=== PATIENT | male | born 1975 | race African-American/Black ===

== ENCOUNTER 2021-02-11 06:21 | Outpatient (REF) | payer OTHER, SELFPAY ==
[2021-02-11 12:05] LABS: Alanine Aminotransferase 20 U/L (0-40); Albumin Level 4.2 g/dL (3.5-5.0); Alkaline Phosphatase 68 U/L (39-117); Anion Gap 12 (12-20); Aspartate Amino Transferase 19 U/L (5-37); Bilirubin Total 0.7 mg/dL (0.0-1.0); Blood Urea Nitrogen 21 mg/dL (9-16); Calcium 9.1 mg/dL (8.4-10.2); Carbon Dioxide 27 mmol/L (22-29); Chloride 105 mmol/L (96-108); Cholesterol 220 mg/dL; Estimated Glomerular Filt Rate > 60; Glucose Fasting 92 mg/dL (60-99); HDL Cholesterol 51 mg/dL; LDL Cholesterol Calculated 151 mg/dl; Potassium 4.1 mmol/L (3.3-5.1); Sodium 140 mmol/L (135-145); Total Protein 7.3 g/dL (6.5-8.0); Triglycerides 91 mg/dL
[2021-02-11 12:10] LABS: TSH reflex Free T4 1.49 uIU/mL (0.32-4.0)
[2021-02-12 07:27] LABS: Follicle Stimulating Hormone 1.8 mIU/mL (1.6-8.0); Lutenizing Hormone 2.5 mIU/mL (1.5-9.3)
[2021-02-16 16:22] LABS: Testosterone, Free 53.4 pg/mL (35.0-155.0); Testosterone, Total 284 ng/dL (250-1100)
== END 2021-02-11 06:22 | disposition home or self-care (01) ==
LOC: HO.HMGCLDS 06:21
PROVIDERS: PCP Nurse Practitioner Family; Visit Provider Nurse Practitioner Family
DX: N52.9 Male erectile dysfunction, unspecified (principal); Z00.00 Encounter for general adult medical examination without abnormal findings
CPT/HCPCS: 36415; 80053; 80061; 83001; 83002; 84402; 84403; 84443

== ENCOUNTER 2021-09-22 09:23 | Outpatient (REF) | payer OTHER, SELFPAY ==
[2021-09-22 11:28] LABS: MANUAL DIFF FLAG NO
[2021-09-22 11:41] LABS: Basophils Percent Auto 0.6 % (0-2); Eosinophils Absolute Auto 0.2 X10*3/uL (0.0-0.4); Eosinophils Percent Auto 3.6 % (0-4); Hematocrit 43.7 % (42.0-52.0); Hemoglobin 14.8 g/dl (14.0-18.0); Imm Gran Abs Auto 0.01 X10*3/uL (0.00-0.03); Imm Gran Pct Auto 0.2 % (0.0-0.4); Lymphocytes Absolute Auto 1.8 X10*3/uL (1.2-4.9); Lymphocytes Percent Auto 37.3 % (20-40); Mean Corpuscular HGB Conc 33.9 g/dl (31.0-36.0); Mean Corpuscular Hemoglobin 29.7 pg (27.0-33.0); Mean Corpuscular Volume 87.6 fL (80.0-98.0); Mean Platelet Volume 9.8 fL (9.4-12.4); Monocytes Absolute Auto 0.6 X10*3/uL (0.1-1.2); Neutrophils Absolute Auto 2.2 x10*3/uL (2.0-8.3); Neutrophils Percent Auto 46.3 % (45-73); Platelet Count 270 X10*3/uL (160-400); Red Blood Count 4.99 X10*6/uL (4.60-5.80); Red Cell Distribution Width 12.7 % (11.0-16.0); White Blood Count 4.8 X10*3/uL (4.8-10.8)
[2021-09-22 12:12] LABS: Cholesterol 201 mg/dL; HDL Cholesterol 47 mg/dL; LDL Cholesterol Calculated 126 mg/dl; Triglycerides 143 mg/dL
[2021-09-22 12:13] LABS: Alanine Aminotransferase 20 U/L (0-40); Albumin Level 4.1 g/dL (3.5-5.0); Alkaline Phosphatase 77 U/L (39-117); Anion Gap 12 (12-20); Aspartate Amino Transferase 19 U/L (5-37); Bilirubin Direct 0.2 mg/dL (0.0-0.5); Bilirubin Total 0.5 mg/dL (0.0-1.0); Blood Urea Nitrogen 21 mg/dL (9-16); Calcium 9.3 mg/dL (8.4-10.2); Carbon Dioxide 24 mmol/L (22-29); Chloride 107 mmol/L (96-108); Estimated Glomerular Filt Rate > 60; Glucose Random 105 mg/dL (60-115); Potassium 4.2 mmol/L (3.3-5.1); Sodium 139 mmol/L (135-145); Total Protein 7.4 g/dL (6.5-8.0)
[2021-09-24 13:30] LABS: LDL Cholesterol Direct 120 mg/dL (<100)
[2021-09-24 19:17] LABS: TS Negative Control Passed; TS Panel A 0; TS Panel B 0; TS Positive Control Passed; TSpotTB Negative (Negative)
== END 2021-09-22 09:24 | disposition home or self-care (01) ==
LOC: HO.HMGCLDS 09:23
PROVIDERS: PCP Nurse Practitioner Family; Visit Provider Physician Assistant Medical
DX: L40.0 Psoriasis vulgaris (principal); E78.5 Hyperlipidemia, unspecified
CPT/HCPCS: 36415; 80048; 80061; 80076; 83721; 85025; 86481

== ENCOUNTER 2022-02-14 11:47 | Outpatient (REF) | payer OTHER, SELFPAY ==
[2022-02-14 13:57] LABS: Appearance Urine CLEAR; Color Urine YELLOW; Glucose Urine UA NEG (NEG); Leukocyte Esterase Urine NEG (NEG); Nitrite Urine NEG (NEG); Urine Blood NEG (NEG); Urine Ketones NEG (NEG); Urine Protein NEG (NEG-TRACE)
[2022-02-14 14:29] LABS: Alanine Aminotransferase 18 U/L (0-40); Albumin Level 4.2 g/dL (3.5-5.0); Alkaline Phosphatase 93 U/L (39-117); Anion Gap 10 (12-20); Aspartate Amino Transferase 16 U/L (5-37); Bilirubin Total 0.4 mg/dL (0.0-1.0); Blood Urea Nitrogen 14 mg/dL (9-16); Calcium 10.1 mg/dL (8.4-10.2); Carbon Dioxide 28 mmol/L (22-29); Chloride 106 mmol/L (96-108); Cholesterol 143 mg/dL; Estimated Glomerular Filt Rate > 60; Glucose Fasting 95 mg/dL (60-99); HDL Cholesterol 52 mg/dL; LDL Cholesterol Calculated 80 mg/dl; Potassium 4.3 mmol/L (3.3-5.1); Sodium 140 mmol/L (135-145); Total Protein 7.6 g/dL (6.5-8.0); Triglycerides 57 mg/dL
[2022-02-14 14:51] LABS: Prostate Specific Antigen Scr 3.04 ng/mL (<0.05-4.0); TSH reflex Free T4 0.51 uIU/mL (0.32-4.0)
== END 2022-02-14 11:48 | disposition home or self-care (01) ==
LOC: HO.HMGCLDS 11:47
PROVIDERS: PCP Nurse Practitioner Family; Visit Provider Nurse Practitioner Family
DX: Z00.00 Encounter for general adult medical examination without abnormal findings (principal); Z12.5 Encounter for screening for malignant neoplasm of prostate
CPT/HCPCS: 36415; 80053; 80061; 81003; 84153; 84443

== ENCOUNTER → 2022-04-08 07:41 | Outpatient (BNVA) | payer OTHER, SELFPAY | PROVIDERS: PCP Nurse Practitioner Family; Referring Provider Nurse Practitioner Family; Visit Provider Nurse Practitioner Family | DX: Z12.11 Encounter for screening for malignant neoplasm of colon (principal) | CPT/HCPCS: 99202 ==

== ENCOUNTER 2022-07-15 09:37 | Outpatient (REF) | payer OTHER, SELFPAY ==
[2022-07-15 11:32] LABS: MANUAL DIFF FLAG NO
[2022-07-15 11:47] LABS: Basophils Percent Auto 0.6 % (0-2); Eosinophils Absolute Auto 0.1 X10*3/uL (0.0-0.4); Eosinophils Percent Auto 2.6 % (0-4); Hemoglobin 14.6 g/dl (14.0-18.0); Imm Gran Abs Auto 0.01 X10*3/uL (0.00-0.03); Imm Gran Pct Auto 0.2 % (0.0-0.4); Lymphocytes Absolute Auto 1.8 X10*3/uL (1.2-4.9); Lymphocytes Percent Auto 37.2 % (20-40); Mean Corpuscular HGB Conc 34.8 g/dl (31.0-36.0); Mean Corpuscular Hemoglobin 30.2 pg (27.0-33.0); Mean Corpuscular Volume 86.8 fL (80.0-98.0); Mean Platelet Volume 9.9 fL (9.4-12.4); Monocytes Absolute Auto 0.6 X10*3/uL (0.1-1.2); Monocytes Percent Auto 12.6 % (2-11); Neutrophils Absolute Auto 2.2 x10*3/uL (2.0-8.3); Neutrophils Percent Auto 46.8 % (45-73); Platelet Count 275 X10*3/uL (160-400); Red Blood Count 4.84 X10*6/uL (4.60-5.80); Red Cell Distribution Width 12.5 % (11.0-16.0); White Blood Count 4.7 X10*3/uL (4.8-10.8)
[2022-07-15 12:01] LABS: Appearance Urine Turbid; Color Urine Yellow; Glucose Urine UA Negative (Negative); Leukocyte Esterase Urine Negative (Negative); Nitrite Urine Negative (Negative); PH 5.5 (5.0-9.0); Specific Gravity - Urine 1.025 (1.005-1.025); Urine Blood Negative (Negative); Urine Ketones Trace mg/dL (Negative); Urine Protein Negative (Neg-Trace)
[2022-07-15 12:11] LABS: Alanine Aminotransferase 17 U/L (0-40); Albumin Level 4.1 g/dL (3.5-5.0); Alkaline Phosphatase 79 U/L (39-117); Anion Gap 14 (12-20); Aspartate Amino Transferase 13 U/L (5-37); Bilirubin Total 0.5 mg/dL (0.0-1.0); Blood Urea Nitrogen 15 mg/dL (9-16); Calcium 9.2 mg/dL (8.4-10.2); Carbon Dioxide 25 mmol/L (22-29); Chloride 107 mmol/L (96-108); Cholesterol 130 mg/dL; Estimated Glomerular Filt Rate > 60; Glucose Fasting 94 mg/dL (60-99); HDL Cholesterol 51 mg/dL; LDL Cholesterol Calculated 67 mg/dl; Potassium 4.2 mmol/L (3.3-5.1); Sodium 142 mmol/L (135-145); Total Protein 7.3 g/dL (6.5-8.0); Triglycerides 63 mg/dL
[2022-07-15 12:17] LABS: TSH reflex Free T4 0.43 uIU/mL (0.32-4.0)
== END 2022-07-15 09:38 | disposition home or self-care (01) ==
LOC: HO.HMGCLDS 09:37
PROVIDERS: PCP Nurse Practitioner Family; Visit Provider Nurse Practitioner Family
DX: E78.5 Hyperlipidemia, unspecified (principal)
CPT/HCPCS: 36415; 80053; 80061; 81003; 84443; 85025

== ENCOUNTER 2022-08-19 08:59 | Day surgery (SDC) | payer OTHER, SELFPAY ==
--- NOTE | 2022-08-18 13:30 | HO.ANESPROP2 ---
Documented by User: Jen Narayan NP 08/18/22 13:31 HPI - Anesthesia Eval Consult details Narrative: 47yo M for Colonoscopy PMFSH Active Problems Active Problems: All Active Problems (Updated 02/14/22 @ 15:08 by TIFFANI Gonzalez) Elevated PSA (Acute) Screening PSA (prostate specific antigen) (Acute) Screening for colon cancer (Acute) Dyslipidemia (Acute) Visual floaters (Acute) Physical exam (Acute) Erectile dysfunction (Acute) Past Medical History Medical History Dyslipidemia Hypertension Psoriasis Family History Family History Father HTN (hypertension) Unknown family medical history Mother HTN (hypertension) Sister No problems noted. Surgical History Surgical History History of tooth extraction Hx of foot surgery Social History Social History Housing: Condominium Alcohol intake: never Patient Tobacco Use Status: Never used Tobacco e-Cigarette/Vaping Use: Never Used Second Hand Smoke Exposure: No Use of substances other than those prescribed or required for medical reasons: No Are you DNR?: No Advance Directives: No Advance Directives Information Provided: Yes service: Yes Current occupational exposures/hazards: No Cognitive needs: No Hearing needs: No Vision needs: No Meds Allergies Allergy/AdvReac Type Severity Reaction Status Date / Time No Known Allergies Allergy Verified 06/22/22 17:33 Home Medications Medication Instructions Recorded Confirmed Last Taken Type clobetasol 0.05 % topical ointment g topical 06/22/22 06/22/22 Unknown History desonide 0.05 % topical ointment topical 06/22/22 06/22/22 Unknown History Exam Exam Date and Time: August 18, 2022 1330 Pertinent Lab Results Pertinent Lab Results: Laboratory Tests 07/15/22 07/15/22 09:43 09:43 WBC 4.7 L Hgb 14.6 Hct 42.0 Plt Count 275 Sodium 142 Potassium 4.2 Chloride 107 Carbon Dioxide 25 BUN 15 Creatinine 1.15 Assessment and Plan Assessment Anesthesia Assessment: Chart Reviewed Documented by User: Amparo Garrido MD 08/19/22 11:28 PMFSH Past Medical History Medical History Dyslipidemia Hypertension Psoriasis Family History Family History Father HTN (hypertension) Unknown family medical history Mother HTN (hypertension) Sister No problems noted. Family history of problems with anesthesia: No Surgical History Surgical History History of tooth extraction Hx of foot surgery History of Problems with Anesthesia: No Social History Social History Housing: Condominium Alcohol intake: never Patient Tobacco Use Status: Never used Tobacco e-Cigarette/Vaping Use: Never Used Second Hand Smoke Exposure: No Use of substances other than those prescribed or required for medical reasons: No Are you DNR?: No Advance Directives: No Advance Directives Information Provided: Yes service: Yes Current occupational exposures/hazards: No Cognitive needs: No Hearing needs: No Vision needs: No Meds Allergies Allergy/AdvReac Type Severity Reaction Status Date / Time No Known Allergies Allergy Verified 06/22/22 17:33 Home Medications Medication Instructions Recorded Confirmed Last Taken Type clobetasol 0.05 % topical ointment g topical 06/22/22 06/22/22 Unknown History desonide 0.05 % topical ointment topical 06/22/22 06/22/22 Unknown History Exam Airway Mallampati Class: I TM Dist: >3cm Neck ROM: Full Heart: rrr Lungs: cta Assessment and Plan Assessment Anesthesia Assessment: Anesthesia Plan Discussed and Chart Reviewed Final Anesthetic Review Family History of Problems with Anesthesia: No History of Problems with Anesthesia: No NPO: Yes ASA Class: II Final Preanesthetic Review: No Changes in Pt Med Stat, Meds/Allgs Chart Reviewed and Consent Obtained/Reviewed Patient Risk: Intermediate Procedure Risk: Intermediate Anesthetic Plan Anesthetic Plan: MAC: Disposition: Standard PACU
[2022-08-19 10:25] VITALS: BMI 35.2
[2022-08-19 10:31] VITALS: BP 150/97; PULSE 72; RESP 18; TEMP 36.4; O2SAT 97
[2022-08-19 10:33] VITALS: BMI 35.2
[2022-08-19] MEDS: Lactated Ringers 1,000 ML 100 ML IVCONT (11:28)
--- NOTE | 2022-08-19 11:29 | MHC.SHP ---
Pre-Procedural Eval Section A Date of Service: 08/19/22 The patient is an INPATIENT: No The History & Physical has been completed within 30 days and I have reviewed it.: No Section B Chief Complaint: screening Details of Present Illness: Colon cancer screening (1st colonoscopy) Relevant Family History (Specify if Yes): No Relevant Social History: None Present Medications: see Short Stay Collaborative assessment Medical History: Significant History (Dyslipidemia Hypertension Psoriasis) History of Previous Operations: Relevant previous surgery/procedure and date(s) (History of tooth extraction) Allergies: Allergies Allergy/AdvReac Type Severity Reaction Status Date / Time No Known Allergies Allergy Verified 06/22/22 17:33 Review of Systems Sugical H&P ROS: Negative: Constitution, Cardiovascular, Respiratory and Gastrointestinal Exam Surgical H&P Exam: Normal: Heart, Normal: Lungs, Normal: Extremities and Normal: Abdomen Plan Diagnosis/Plan: Unchanged I have reviewed the history and physical and performed a pertinent physical examination on my patient. No changes have occurred unless specified.
--- NOTE | 2022-08-19 11:29 | PM.OP ---
Brief Operative Note Date of Service: 08/19/22 Pre-op diagnosis: Colon cancer screening (1st colonoscopy) Post-op diagnosis: other (Colon polyp, diverticulosis, hemorrhoids) Procedure: COLONOSCOPY TILL CECUM WITH BIOPSIES Consent: Indications for the procedure and potential complications of bleeding, perforation, reaction to medications and missed diagnosis were discussed with the patient and informed consent was obtained. Instrument: Olympus CF H 190 L variable stiffness adult colonoscope Monitoring: Vital signs and clinical assessment, intermittent blood pressure monitoring, continuous EKG monitoring, Pulse oximetry and Carbon Dioxide monitoring were done throughout the procedure. Colon withdrawl time was 15 minutes. Procedure: The patient was placed in the left lateral decubitis position and pre-procedure medications were administered. After a digital rectal examination of the ano-rectum, the video colonoscope was inserted into the rectum and advanced through the colon to the cecum. The colonoscope was slowly withdrawn in a retrograde panoramic fashion and the colon mucosa was carefully examined including a retroflexed view of the rectum. Findings and interventions are described below. Procedure Difficulty: Colon was long and tortuous and there was spasm and some loop formation, no maneuvers were required Findings: Terminal Ileum: Not evaluated Cecum: A 4-5 mm sessile polyp adjacent to appendicular orifice Ascending Colon: Normal Transverse Colon: Normal Descending Colon: Normal Sigmoid Colon: Moderate diverticulosis Rectum: Normal Ano-rectum: Moderate internal hemorrhoids Colon preparation: Good after some irrigation and Fair in the right colon Impression and Post Procedure Diagnosis: Colonoscopy Findings: one small polyp removed Moderate diverticulosis seen in the sigmoid colon Moderate hemorrhoids on retroflexed exam. Plan: Await pathology results Patient has an appointment on 09/02/22 in the GI Clinic with Nicci Schroeder FNP-BC . Repeat Colonoscopy interval based on path results - in 3 years if polyps are adenomatous and due to fair prep in the right colon (adult colonoscope for future colonoscopies). Above findings were reviewed with the patient and colon polyps and diverticulosis handouts were given in the discharge area Surgeon: Samia Salvador MD Anesthesia: MAC Was an Sanitation Technician used for this Procedure?: No Sanitation Technician: Taylor Rae Estimated blood loss (mL): 0 Pathology: other (A. cecal polyp) Condition: stable Disposition: PACU
--- NOTE | 2022-08-19 11:34 | P.OP_ITS ---
Operative Note Operative Note Date of Service: 08/19/22 Narrative: Pre-op diagnosis: Colon cancer screening (1st colonoscopy) Post-op diagnosis:?other (Colon polyp, diverticulosis, hemorrhoids) Procedure: COLONOSCOPY TILL CECUM WITH BIOPSIES Consent: Indications for the procedure and potential complications of bleeding, perforation, reaction to medications and missed diagnosis were discussed with the patient and informed consent was obtained. Instrument: Olympus CF H 190 L variable stiffness adult colonoscope Monitoring: Vital signs and clinical assessment, intermittent blood pressure monitoring, continuous EKG monitoring, Pulse oximetry and Carbon Dioxide monitoring were done throughout the procedure. Colon withdrawl time was 15 minutes. Procedure: The patient was placed in the left lateral decubitis position and pre-procedure medications were administered. After a digital rectal examination of the ano-rectum, the video colonoscope was inserted into the rectum and advanced through the colon to the cecum. The colonoscope was slowly withdrawn in a retrograde panoramic fashion and the colon mucosa was carefully examined including a retroflexed view of the rectum. Findings and interventions are described below. Procedure Difficulty:? Colon was long and tortuous and there was spasm and some loop formation, no maneuvers were required Findings: Terminal Ileum: Not evaluated Cecum:? A 4-5 mm sessile polyp adjacent to appendicular orifice Ascending Colon:? Normal Transverse Colon:? Normal Descending Colon:? Normal Sigmoid Colon:? Moderate diverticulosis Rectum:? Normal Ano-rectum:? Moderate internal hemorrhoids Colon preparation:? Good after some irrigation and Fair in the right colon Impression and Post Procedure Diagnosis: Colonoscopy Findings: one small polyp removed Moderate diverticulosis seen in the sigmoid colon Moderate hemorrhoids on retroflexed exam. Plan: Await pathology results Patient has an appointment on 09/02/22 in the GI Clinic with ? Nicci Schroeder FNP-BENITO . Repeat Colonoscopy interval based on path results - in 3 years if polyps are adenomatous and due to fair prep in the right colon (adult colonoscope for future colonoscopies). Above findings were reviewed with the patient and colon polyps and div erticulosis handouts were given in the discharge area Surgeon: Samia Salvador MD Anesthesia:?MAC Was an Piece Marker Small Arms used for this Procedure?:?Yes Piece Marker Small Arms:?Taylor Rae Estimated blood loss (mL):?0 Pathology:?other (A. cecal polyp) Condition:?stable Disposition:?PACU
[2022-08-19 12:21] VITALS: BP 109/66; PULSE 80; RESP 16; TEMP 36.5; O2SAT 95
[2022-08-19 12:35] VITALS: BP 123/78; PULSE 72; RESP 16; O2SAT 98
[2022-08-19 12:50] VITALS: BP 138/99; PULSE 60; RESP 16; TEMP 36.5; O2SAT 99
== END 2022-08-19 14:41 | disposition home or self-care (01) ==
PROVIDERS: PCP Nurse Practitioner Family; Visit Provider Internal Medicine Gastroenterology
PROC: 0DJD8ZZ Inspection of Lower Intestinal Tract, Via Natural or Artificial Opening Endoscopic (ICD-10-PCS; CPT 45378; principal; 2022-08-19 11:00)
DX: Z12.11 Encounter for screening for malignant neoplasm of colon (principal); D12.0 Benign neoplasm of cecum; K57.30 Diverticulosis of large intestine without perforation or abscess without bleeding; K64.8 Other hemorrhoids; E78.5 Hyperlipidemia, unspecified; I10 Essential (primary) hypertension; L40.9 Psoriasis, unspecified; Z79.899 Other long term (current) drug therapy
CPT/HCPCS: 45380; 88305

== ENCOUNTER → 2022-09-02 09:24 | Outpatient (BNVA) | payer OTHER, SELFPAY | PROVIDERS: PCP Nurse Practitioner Family; Visit Provider Nurse Practitioner Family | DX: D36.9 Benign neoplasm, unspecified site (principal); Z98.890 Other specified postprocedural states | CPT/HCPCS: 99212 ==

== ENCOUNTER → 2022-10-18 14:36 | Outpatient (BNVA) | payer OTHER, SELFPAY | PROVIDERS: PCP Nurse Practitioner Family; Visit Provider Urology | DX: R97.20 Elevated prostate specific antigen [PSA] (principal); N52.9 Male erectile dysfunction, unspecified | CPT/HCPCS: 99202 ==

== ENCOUNTER 2022-12-08 07:41 | Outpatient (REF) | payer OTHER, SELFPAY ==
[2022-12-08 11:21] LABS: MANUAL DIFF FLAG NO
[2022-12-08 11:25] LABS: Appearance Urine Turbid; Color Urine Yellow; Glucose Urine UA Negative (Negative); Leukocyte Esterase Urine Negative (Negative); Nitrite Urine Negative (Negative); PH 5.5 (5.0-9.0); Specific Gravity - Urine 1.025 (1.005-1.025); Urine Blood Negative (Negative); Urine Ketones Negative (Negative); Urine Protein Negative (Neg-Trace)
[2022-12-08 11:39] LABS: Basophils Percent Auto 0.6 % (0-2); Eosinophils Absolute Auto 0.2 X10*3/uL (0.0-0.4); Eosinophils Percent Auto 3.5 % (0-4); Hematocrit 44.7 % (42.0-52.0); Hemoglobin 15.2 g/dl (14.0-18.0); Imm Gran Abs Auto 0.01 X10*3/uL (0.00-0.03); Imm Gran Pct Auto 0.2 % (0.0-0.4); Lymphocytes Absolute Auto 1.9 X10*3/uL (1.2-4.9); Lymphocytes Percent Auto 38.2 % (20-40); Mean Corpuscular Hemoglobin 29.8 pg (27.0-33.0); Mean Corpuscular Volume 87.6 fL (80.0-98.0); Mean Platelet Volume 9.7 fL (9.4-12.4); Monocytes Absolute Auto 0.6 X10*3/uL (0.1-1.2); Monocytes Percent Auto 12.4 % (2-11); Neutrophils Absolute Auto 2.2 x10*3/uL (2.0-8.3); Neutrophils Percent Auto 45.1 % (45-73); Platelet Count 303 X10*3/uL (160-400); Red Cell Distribution Width 12.3 % (11.0-16.0); White Blood Count 4.9 X10*3/uL (4.8-10.8)
[2022-12-08 12:05] LABS: Alanine Aminotransferase 21 U/L (0-40); Albumin Level 4.2 g/dL (3.5-5.0); Alkaline Phosphatase 85 U/L (39-117); Anion Gap 9 (12-20); Aspartate Amino Transferase 14 U/L (5-37); Bilirubin Total 0.6 mg/dL (0.0-1.0); Blood Urea Nitrogen 19 mg/dL (9-16); Calcium 9.4 mg/dL (8.4-10.2); Carbon Dioxide 27 mmol/L (22-29); Chloride 109 mmol/L (96-108); Cholesterol 142 mg/dL; Estimated Glomerular Filt Rate > 60; Glucose Fasting 100 mg/dL (60-99); HDL Cholesterol 48 mg/dL; LDL Cholesterol Calculated 79 mg/dl; Potassium 4.3 mmol/L (3.3-5.1); Sodium 141 mmol/L (135-145); TSH reflex Free T4 0.39 uIU/mL (0.32-4.0); Total Protein 7.2 g/dL (6.5-8.0); Triglycerides 76 mg/dL
[2022-12-08 12:06] LABS: Prostate Specific Antigen 2.17 ng/mL (<0.05-4.0)
== END 2022-12-08 07:42 | disposition home or self-care (01) ==
LOC: HO.HMGCLDS 07:41
PROVIDERS: Urology; PCP Nurse Practitioner Family; Visit Provider Nurse Practitioner Family
DX: Z12.5 Encounter for screening for malignant neoplasm of prostate (principal); R97.20 Elevated prostate specific antigen [PSA]; E78.5 Hyperlipidemia, unspecified
CPT/HCPCS: 36415; 80053; 80061; 81003; 84153; 84443; 85025

== ENCOUNTER → 2022-12-21 14:28 | Outpatient (BNVA) | payer OTHER, SELFPAY | PROVIDERS: PCP Nurse Practitioner Family; Visit Provider Urology | DX: R97.20 Elevated prostate specific antigen [PSA] (principal); N52.9 Male erectile dysfunction, unspecified | CPT/HCPCS: 99212 ==

== ENCOUNTER 2023-02-13 14:00 | Outpatient (RCR) | payer OTHER, SELFPAY ==
--- NOTE | 2022-12-26 13:36 | MHC.PT.EP ---
[facility] [place] Office [place] Office [place] Office [address] Wiley [address]t [address] [phone] F: [phone] F: [phone] F: [phone] F: [phone] Physical Therapy Plan of Care Date of Evaluation: Date of Surgery: Diagnosis: This is a 47 yo male presenting to skilled PT with a script for strain of left Achilles tendon Assessment: This is a 47 yo male presenting to skilled PT with a script for strain of left Achilles tendon. Patient was playing in a flag football game when he started to have pain in his Achilles (he did his PT test prior to this the same day), onset was in August 2022. Pain is located at the Achilles tendon and can be described as sharp vs achy/dull, constant. Pain increases with running, walking, after sitting for prolonged periods of time. Denies numbness, tingling, cramping. Denies back pain. His next PT test is at end of February. In terms of training currently, he is running on the road about a mile a few times a week (flat surfaces only). Of note, he had a surgery on his posterior tib in 2011 and had PT prior to this but none following (no noted pain from this prior to new incident). He wears an Achilles brace that he wears all the time, denies pain medication, ice or stretching. Assessment reveals pain that ranges 4-6/10. Patient demos decreased ankle ROM and ER'd hips/gait pattern (antalgic with run). They are TTP at Achilles tendon, does not report HEP for stretching but is active and motivated. Based on functional limitations, impaired QOL and decreased education on pain management this patient is a good candidate for skilled PT 2x/wk for 5wks. He would benefit from manual work for ? tendonitis, education on stretching, manual stretching, dynamic warm up education, KT trial and possibly ionto for pain. Frequency and Duration: The patient will be seen 2x/wk for 5wks Short Term Goals: I in HEP improve DF by at least 5 degs improve pain to no more than 2/10 Special Makeup Fx Artist Instructor Goals: Demo good understanding of dynamic and static stretching program Tolerate 1 mile run without pain Normalize gastroc length Improve LEFs by 10 points Treatment Plan: Modalities to reduce pain, spasms and effusion. Manual therapy to restore motion and function. Therapeutic exercise to improve strength and flexibility. Neuromuscular re-education for posture and balance. Therapeutic activities to return to functional activities of daily living. Electronically signed by: Loida Hayward PT Please sign and return to therapist. Thank you for your referral.
--- NOTE | 2023-02-15 13:57 | MHC.PT.DC ---
[facility] [place] Office [place] Office [place] Office [address] Wiley [address]t [address] [facility] [phone] F: [phone] F: [phone] F: [phone] F: [phone] Physical Therapy Discharge Report Diagnosis: This is a 47 yo male presenting to skilled PT with a script for strain of left Achilles tendon Date of Surgery: Date of Evaluation: 12/23/22 Date of Discharge: 02/15/23 Treatments to Date: 13 Cancellations to Date: 0 No Shows to Date: 0 Discharge Status: Achieved Goals Improved Function Independent with HEP Discharge Summary: 02/13: Patient without pain or stiffness throughout the last session. He completed 13 sessions and was provided with a good HEP and self treatment techniques to assist with lingering chronic stiffness. Patient has met his goals and is ready for DC. Electronically signed by: Loida Hayward PT Please sign and return to therapist. Thank you for your referral.
== END 2023-02-15 13:57 | disposition home or self-care (01) ==
LOC: HO.PTCHIC 14:00
PROVIDERS: PCP Nurse Practitioner Family; Visit Provider Nurse Practitioner Family
DX: S86.012D Strain of left Achilles tendon, subsequent encounter (principal)
CPT/HCPCS: 97110; 97112; 97140; 97161; 97530

== ENCOUNTER 2023-03-30 10:50 | Outpatient (REF) | payer OTHER, SELFPAY ==
[2023-03-30 13:55] LABS: Basophils Percent Auto 0.8 % (0-2); Eosinophils Absolute Auto 0.1 X10*3/uL (0.0-0.4); Eosinophils Percent Auto 2.3 % (0-4); Hematocrit 44.1 % (42.0-52.0); Imm Gran Abs Auto 0.01 X10*3/uL (0.00-0.03); Imm Gran Pct Auto 0.3 % (0.0-0.4); Lymphocytes Absolute Auto 1.7 X10*3/uL (1.2-4.9); Lymphocytes Percent Auto 42.4 % (20-40); MANUAL DIFF FLAG SCAN; Mean Corpuscular Hemoglobin 29.7 pg (27.0-33.0); Mean Corpuscular Volume 87.3 fL (80.0-98.0); Mean Platelet Volume 9.5 fL (9.4-12.4); Monocytes Absolute Auto 0.6 X10*3/uL (0.1-1.2); Monocytes Percent Auto 14.5 % (2-11); Neutrophils Absolute Auto 1.6 x10*3/uL (2.0-8.3); Neutrophils Percent Auto 39.7 % (45-73); Platelet Count 255 X10*3/uL (160-400); Red Blood Count 5.05 X10*6/uL (4.60-5.80); Red Cell Distribution Width 12.3 % (11.0-16.0); SCAN SMEAR FLAG 1
[2023-03-30 14:08] LABS: Alanine Aminotransferase 27 U/L (0-40); Albumin Level 4.2 g/dL (3.5-5.0); Alkaline Phosphatase 98 U/L (39-117); Anion Gap 10 (12-20); Aspartate Amino Transferase 20 U/L (5-37); Bilirubin Direct 0.2 mg/dL (0.0-0.5); Bilirubin Total 0.8 mg/dL (0.0-1.0); Blood Urea Nitrogen 18 mg/dL (9-16); Calcium 9.8 mg/dL (8.4-10.2); Carbon Dioxide 28 mmol/L (22-29); Chloride 108 mmol/L (96-108); Cholesterol 125 mg/dL; Estimated Glomerular Filt Rate > 60; Glucose Random 85 mg/dL (60-115); HDL Cholesterol 40 mg/dL; LDL Cholesterol Calculated 74 mg/dl; Potassium 4.2 mmol/L (3.3-5.1); Sodium 142 mmol/L (135-145); Total Protein 7.5 g/dL (6.5-8.0); Triglycerides 55 mg/dL
[2023-03-30 14:42] LABS: SLIDE REVIEW VERIFIED
[2023-04-01 16:23] LABS: TS Negative Control Passed; TS Panel A 0; TS Panel B 0; TS Positive Control Passed; TSpotTB Negative (Negative)
== END 2023-03-30 10:51 | disposition home or self-care (01) ==
LOC: HO.HMGCLDS 10:50
PROVIDERS: PCP Nurse Practitioner Family; Visit Provider Physician Assistant Medical
DX: L40.0 Psoriasis vulgaris (principal); Z79.899 Other long term (current) drug therapy
CPT/HCPCS: 36415; 80048; 80061; 80076; 85025; 86481

== ENCOUNTER 2023-05-15 12:21 | Outpatient (REF) | payer OTHER, SELFPAY | END 2023-05-15 12:22 | disposition home or self-care (01) | LOC: HO.HMGCLDS 12:21 | PROVIDERS: PCP Nurse Practitioner Family; Visit Provider Nurse Practitioner Family | DX: D72.819 Decreased white blood cell count, unspecified (principal) | CPT/HCPCS: 36415; 85025; 85045 ==

== ENCOUNTER 2023-06-06 08:44 | Outpatient (AMB) | payer OTHER, SELFPAY ==
--- NOTE | 2023-06-06 08:54 | MHC.PC.OV ---
Vital Signs 06/06/23 08:55 Height 6 ft Weight 258 lb 2 oz BMI 35.0 BP 124/78 Blood Pressure Location Rt brachial Position Sitting Pulse 63 Pulse Source Pulse Oximeter Pulse Oximetry (%) 98 Oxygen Delivery Method Room Air Intake Visit Reasons: 6m follow up Allergies No Known Allergies Allergy (Verified 06/06/23 08:56) Tobacco use date assessed: 06/06/23 Dental Screening Dental Screen Date: 06/06/23 Did you have a dental visit in the last 12 months?: Yes Did you have a dental problem in the last 6 months where you did not have access to dental care?: No Was dental information given to patient?: Patient has dentist HPI 6m follow up HPI Details Dyslipidemia: On atorvastatin 20mg. Will order labs. Denies chest pain, shortness of breath, and dizziness. PFSH Medical History Dyslipidemia Hypertension Psoriasis Tubular adenoma Surgical History History of tooth extraction Hx of colonoscopy Hx of foot surgery Family History Father HTN (hypertension) Unknown family medical history Mother HTN (hypertension) Sister No problems noted. Social History Housing: Condominium Alcohol intake: never Patient Tobacco Use Status: Never used Tobacco e-Cigarette/Vaping Use: Never Used Second Hand Smoke Exposure: No service: Yes Current occupational exposures/hazards: No Cognitive needs: No Hearing needs: No Vision needs: No Questionnaire Thrive Questionnaire Date Thrive assessed: 02/14/22 SATINDER-7 AMB Questionnaire SATINDER-7 Date SATINDER - 7 assessed: 02/14/22 Source: Developed by Drs. Juan A Taylor, Radha Joy, Antoni Prakash and colleagues, with an educational martinez from [employer]. Review of Systems Const Reports as per HPI Physical exam (Primary Care) Vital Signs: Last Vital Signs Pulse 63 06/06/23 08:55 BP 124/78 06/06/23 08:55 Pulse Ox 98 06/06/23 08:55 Oxygen Delivery Method Room Air 06/06/23 08:55 BMI result Body Mass Index 35.0 Tobacco/Smoking Status: Tobacco use Status Tobacco use date assessed 06/06/23 06/06/23 08:59 Patient Tobacco Use Status Never used Tobacco 06/06/23 08:59 e-Cigarette/Vaping Use Never Used 06/06/23 08:59 Thrive Assessment: Date of Thrive Assessment Date Thrive assessed 02/14/22 06/06/23 08:59 Const General: cooperative Nutritional Appearance: obese Orientation/consciousness: patient oriented x3 Resp Effort & Inspection: normal respiratory effort Auscultation: clear to auscultation bilaterally Cardio Palpation: normal PMI Rate: regular rate Rhythm: regular rhythm Heart sounds: S1 normal heart sound present, S2 normal heart sound present and no murmurs Neuro General: patient oriented x3 Extrem Right lower extremity: no edema Left lower extremity: no edema Psych Appearance: grossly normal Mental Status: mental status grossly normal Speech and movement: Normal speech and movement present Affect: normal affect Attitude: cooperative Thought process: Normal thought process present Thought content: Normal thought content present Insight: Good insight present (Psych) Judgement: Good judgement present (Psych) Assessment and Plan Assessment & Plan (1) Dyslipidemia: Code(s): E78.5 - Hyperlipidemia, unspecified Plan: Labs ordered Plan The patient agreed to the use of a medical program specialist for this encounter. Scribed for TIFFANI Hanson by Gregoria Rene medical program specialist, on 06/06/2023 at 09:10 EST. Orders: Orders Comprehensive English. Panel Fast Today E78.5 - Hyperlipidemia, unspecified Lipid Panel Today E78.5 - Hyperlipidemia, unspecified TSH reflex Free T4 Today E78.5 - Hyperlipidemia, unspecified Complete Blood Count Auto Diff Today E78.5 - Hyperlipidemia, unspecified UA CC w/rflx Micro + Cult Today E78.5 - Hyperlipidemia, unspecified Coding Level of Care Code Est Pt Level 3 (39347) Diagnoses Dyslipidemia E78.5
[2023-06-06 08:55] VITALS: BP 124/78; PULSE 63; O2SAT 98; BMI 35.0
== END 2023-06-06 09:20 | disposition home or self-care (01) ==
PROVIDERS: PCP Nurse Practitioner Family; Visit Provider Nurse Practitioner Family
DX: E78.5 Hyperlipidemia, unspecified (principal)
CPT/HCPCS: 99213

== ENCOUNTER 2023-06-09 08:04 | Outpatient (REF) | payer OTHER, SELFPAY ==
[2023-06-09 11:17] LABS: MANUAL DIFF FLAG NO
[2023-06-09 11:24] LABS: Appearance Urine Clear; Color Urine Yellow; Glucose Urine UA Negative (Negative); Leukocyte Esterase Urine Negative (Negative); Nitrite Urine Negative (Negative); PH 5.5 (5.0-9.0); Urine Blood Negative (Negative); Urine Ketones Negative (Negative); Urine Protein Negative (Neg-Trace)
[2023-06-09 11:41] LABS: Basophils Percent Auto 0.7 % (0-2); Eosinophils Absolute Auto 0.1 X10*3/uL (0.0-0.4); Eosinophils Percent Auto 3.1 % (0-4); Hematocrit 43.3 % (42.0-52.0); Hemoglobin 14.5 g/dl (14.0-18.0); Imm Gran Abs Auto 0.01 X10*3/uL (0.00-0.03); Imm Gran Pct Auto 0.2 % (0.0-0.4); Lymphocytes Absolute Auto 1.8 X10*3/uL (1.2-4.9); Lymphocytes Percent Auto 39.8 % (20-40); Mean Corpuscular HGB Conc 33.5 g/dl (31.0-36.0); Mean Corpuscular Hemoglobin 29.7 pg (27.0-33.0); Mean Corpuscular Volume 88.5 fL (80.0-98.0); Mean Platelet Volume 9.5 fL (9.4-12.4); Monocytes Absolute Auto 0.6 X10*3/uL (0.1-1.2); Neutrophils Percent Auto 43.2 % (45-73); Platelet Count 250 X10*3/uL (160-400); Red Blood Count 4.89 X10*6/uL (4.60-5.80); Red Cell Distribution Width 12.4 % (11.0-16.0); White Blood Count 4.6 X10*3/uL (4.8-10.8)
[2023-06-09 15:27] LABS: Alanine Aminotransferase 17 U/L (0-40); Albumin Level 4.1 g/dL (3.5-5.0); Alkaline Phosphatase 80 U/L (39-117); Anion Gap 14 (12-20); Aspartate Amino Transferase 16 U/L (5-37); Bilirubin Total 0.6 mg/dL (0.0-1.0); Blood Urea Nitrogen 18 mg/dL (9-16); Calcium 9.4 mg/dL (8.4-10.2); Carbon Dioxide 24 mmol/L (22-29); Chloride 108 mmol/L (96-108); Cholesterol 133 mg/dL; Estimated Glomerular Filt Rate > 60; Glucose Fasting 97 mg/dL (60-99); HDL Cholesterol 52 mg/dL; LDL Cholesterol Calculated 67 mg/dl; Potassium 4.4 mmol/L (3.3-5.1); Sodium 142 mmol/L (135-145); TSH reflex Free T4 0.23 uIU/mL (0.32-4.0); Total Protein 7.5 g/dL (6.5-8.0); Triglycerides 71 mg/dL
[2023-06-09 15:58] LABS: Free T4 (Free Thyroxine) 0.83 ng/dL (0.71-1.85)
== END 2023-06-09 08:05 | disposition home or self-care (01) ==
LOC: HO.HMGCLDS 08:04
PROVIDERS: PCP Nurse Practitioner Family; Visit Provider Nurse Practitioner Family
DX: E78.5 Hyperlipidemia, unspecified (principal)
CPT/HCPCS: 36415; 80053; 80061; 81003; 84439; 84443; 85025

== ENCOUNTER 2023-06-16 08:13 | Outpatient (REF) | payer OTHER, SELFPAY ==
[2023-06-16 13:33] LABS: TSH reflex Free T4 1.01 uIU/mL (0.32-4.0)
[2023-06-17 20:53] LABS: Triiodothyronine T3 Free 3.4 pg/mL (2.3-4.2)
[2023-06-19 13:28] LABS: Thyroid Peroxidase Antibodies <1 IU/mL (<9)
[2023-06-21 14:54] LABS: Thyrotropin Receptor Antibody <1.00 IU/L (<=2.00)
== END 2023-06-16 08:14 | disposition home or self-care (01) ==
LOC: HO.HMGCLDS 08:13
PROVIDERS: PCP Nurse Practitioner Family; Visit Provider Nurse Practitioner Family
DX: R79.89 Other specified abnormal findings of blood chemistry (principal); E03.9 Hypothyroidism, unspecified
CPT/HCPCS: 36415; 83520; 84443; 84481; 86376

== ENCOUNTER 2023-06-29 09:39 | Outpatient (REF) | payer OTHER, SELFPAY ==
--- NOTE | ~2023-06-29 | US_ITS ---
EXAMINATION: US THYROID CLINICAL INFORMATION: Other specified abnormal findings of blood chemistry. COMPARISON: None available. TECHNIQUE: Linear transducer grayscale and color Doppler examination with attention to the region of the thyroid. FINDINGS: SIZE: Measurements of the thyroid lobes and nodules are given in sagittal, anteroposterior and transverse dimensions respectively. Right Thyroid Lobe: 6.3 x 2.5 x 2.2 cm, volume 18.0 mL. Parenchyma: The gland echotexture is homogeneous. Thyroid vascularity is normal. Left Thyroid Lobe: 6.1 x 2.4 x 2.1 cm, volume 16.1 mL. Parenchyma: The gland echotexture is homogeneous. Thyroid vascularity is normal. Isthmus: 0.83 cm in maximum AP dimension. Estimated total number of nodules greater than or equal to 1 cm: 1. Music Publicist nodules are described as follows: 1. Location: Right inferior. Size: 0.9 x 0.5 x 0.6 cm, volume 0.13 mL. Nodule characteristics: Composition: Spongiform (0). Echogenicity: Anechoic (0). Shape: Not taller than wide (0). Margins: Smooth (0). Echogenic Foci: None (0). ACR TI-RADS total points: 0 ACR TI-RADS category: 1 2. Location: Inferior isthmus. Size: 2.3 x 2.0 x 2.6 cm, volume 5.9 mL. Nodule characteristics: Composition: Solid/almost completely solid (2). Echogenicity: Hypoechoic (2). Shape: Not taller than wide (0). Margins: Smooth (0). Echogenic Foci: Punctate echogenic foci (3). ACR TI-RADS total points: 7 ACR TI-RADS category: 5 NODES: No lymphadenopathy is seen in the tissue surrounding the thyroid gland. US/US thyroid IMPRESSION: 1. A 2.3 cm in maximal diameter thyroid isthmus TR 5 nodule meets ACR biopsy criteria and is amenable to ultrasound-guided biopsy, if clinically indicated and not already performed. 2. There is a diffuse goiter. ACR TI-RADS RECOMMENDATION REFERENCE: Ultrasound-guided fine-needle aspiration, followup ultrasound, no further follow up. * TR1 (0 point) and TR2 (2 points): No FNA or follow up. * TR3 (3 points): FNA if more than or equal to 2.5 cm in maximum dimension, followup ultrasound in 1, 3 and 5 years if 1.5 to 2.4 cm in maximum dimension. * TR4 (4-6 points): FNA if more than or equal to 1.5 cm in maximum dimension, followup ultrasound in 1, 2, 3 and 5 years if 1 to 1.4 cm in maximum dimension. * TR5 (more than or equal to 7 points): FNA if more than or equal to 1 cm in maximum dimension, followup ultrasound every year for 5 years if 0.5 to 0.9 cm in maximum dimension. * TR3, TR4 or TR5 nodules that are below the size threshold for followup receive no follow up.
== END 2023-06-29 09:40 | disposition home or self-care (01) ==
LOC: HO.HMGCX 09:39
PROVIDERS: PCP Nurse Practitioner Family; Visit Provider Nurse Practitioner Family
DX: R79.89 Other specified abnormal findings of blood chemistry (principal); E04.9 Nontoxic goiter, unspecified
CPT/HCPCS: 76536

== ENCOUNTER 2023-09-06 08:26 | Outpatient (AMB) | payer OTHER, SELFPAY ==
--- NOTE | 2023-09-06 08:41 | AM.OFFWIN_ITS ---
Intake Vital Signs 09/06/23 08:43 Height 6 ft Weight 268 lb 8 oz BMI 36.4 BP 112/70 Blood Pressure Location Rt brachial Position Sitting Pulse 81 Pulse Source Pulse Oximeter Temp 98.0 F Temp Source Temporal Artery Scan Pulse Oximetry (%) 99 Oxygen Delivery Method Room Air Intake Visit Reasons: EP Right Ear Pain Intake Note: pt is here for c/o right ear pain Patient Tobacco Use Status: Never used Tobacco Allergies No Known Allergies Allergy (Verified 09/06/23 08:43) Medication List - Last Reconciled 09/06/23 by Akil Elias MD atorvastatin 20 mg PO BEDTIME 90 days sildenafil 100 mg PO DAILY PRN 30 days Do you need a note to return to daycare/school/sports/work: Yes HPI EP Right Ear Pain HPI Details Patient is 48-year-old gentleman came in today to be evaluated for ri ght ear discomfort Patient says that he has been having discomfort for past few days but today he is feeling will better. He is also complaining of ear weeping last night There is no fever chills no nausea vomiting diarrhea no abdominal pain no sore throat no cough Patient works in On examination patient have pus in his ear canal. I am treating him with Augmentin b.i.d. for 10 days Patient was instructed to follow-up with PCP after Also not to use any Q-tips or anything else to put in the ear. [facility] Medical History Subclinical hyperthyroidism Multinodular goiter Tubular adenoma Dyslipidemia Hypertension Psoriasis Surgical History Hx of colonoscopy Hx of foot surgery History of tooth extraction Family History Father HTN (hypertension) Unknown family medical history Mother HTN (hypertension) Sister No problems noted. Social History Housing: Condominium Alcohol intake: never Patient Tobacco Use Status: Never used Tobacco e-Cigarette/Vaping Use: Never Used Second Hand Smoke Exposure: No service: Yes Current occupational exposures/hazards: No Cognitive needs: No Hearing needs: No Vision needs: No Review of Systems Const All systems reviewed & are unremarkable except as noted in HPI and below Physical Exam Vital Signs: Last Vital Signs Temp 98.0 F 09/06/23 08:43 Pulse 81 09/06/23 08:43 BP 112/70 09/06/23 08:43 Pulse Ox 99 09/06/23 08:43 Oxygen Delivery Method Room Air 09/06/23 08:43 BMI result Body Mass Index 36.4 Const General: no acute distress Orientation/consciousness: patient oriented x3 HEENT Other: Right ear canal has some pus, pain with tragus pressure present could not see tympanic membrane Eyes General: appearance normal, both eyes and all related structures Resp Effort & Inspection: normal respiratory effort and able to speak in complete sentences Auscultation: clear to auscultation bilaterally Cardio Other: S1 S2 Neuro General: patient oriented x3 Psych Mental Status: mental status grossly normal Assessment & Plan Assessment & Plan (1) Acute otitis media, right: Code(s): H66.91 - Otitis media, unspecified, right ear Plan Patient is 48-year-old gentleman came in today to be evaluated for right ear discomfort Patient says that he has been having discomfort for past few days but today he is feeling will better. He is also complaining of ear weeping last night There is no fever chills no nausea vomiting diarrhea no abdominal pain no sore throat no cough Patient works in On examination patient have pus in his ear canal. I am treating him with Augmentin b.i.d. for 10 days Patient was instructed to follow-up with PCP after Also not to use any Q-tips or anything else to put in the ear. Medications: New amoxicillin-pot clavulanate 875-125 mg 1 tab PO BID 10 days 20 tabs 0RF Coding Level of Care Code Est Pt Level 3 (73736) Diagnoses Acute otitis media, right H66.91
[2023-09-06 08:43] VITALS: BP 112/70; PULSE 81; TEMP 36.7; O2SAT 99; BMI 36.4
== END 2023-09-06 09:13 | disposition home or self-care (01) ==
PROVIDERS: PCP Nurse Practitioner Family; Visit Provider Internal Medicine
DX: H66.91 Otitis media, unspecified, right ear (principal)
CPT/HCPCS: 99213

== ENCOUNTER 2023-12-07 09:21 | Outpatient (AMB) | payer OTHER, SELFPAY ==
--- NOTE | 2023-12-07 09:27 | A.OFFPC_ITS ---
Vital Signs 12/07/23 09:28 Height 6 ft Weight 264 lb 2 oz BMI 35.8 BP 114/78 Blood Pressure Location Rt brachial Pulse 72 Pulse Source Pulse Oximeter Pulse Oximetry (%) 97 Oxygen Delivery Method Room Air Intake Visit Reasons: 6 month follow up Intake Note: Pt is here to follow up for lipids Allergies No Known Allergies Allergy (Verified 12/07/23 09:30) Medication List - Last Reconciled 12/07/23 by TIFFANI Gonzalez atorvastatin 20 mg PO BEDTIME 90 days sildenafil 100 mg PO DAILY PRN 30 days Tobacco use date assessed: 12/07/23 Dental Screening Dental Screen Date: 12/07/23 Did you have a dental visit in the last 12 months?: Yes Did you have a dental problem in the last 6 months where you did not have access to dental care?: No Was dental information given to patient?: Patient has dentist HPI 6 month follow up HPI Details Dyslipidemia: On atorvastatin 20mg. Will order labs. HTN: Blood pressure is stable. Denies chest pain, shortness of breath, headache, dizziness, and blurred vision. [facility] Medical History (Updated 12/07/23 @ 09:39 by TIFFANI Gonzalez) Subclinical hyperthyroidism Multinodular goiter Tubular adenoma Dyslipidemia Hypertension Psoriasis Surgical History Hx of colonoscopy Hx of foot surgery History of tooth extraction Family History Father HTN (hypertension) Unknown family medical history Mother HTN (hypertension) Sister No problems noted. Social History Housing: Condominium Alcohol intake: never Patient Tobacco Use Status: Never used Tobacco e-Cigarette/Vaping Use: Never Used Second Hand Smoke Exposure: No service: Yes Current occupational exposures/hazards: No Cognitive needs: No Hearing needs: No Vision needs: No Questionnaire PHQ-9 Over the last 2 weeks, how often have you been bothered by any of the following problems? 1. Little interest or pleasure in doing things: not at all 2. Feeling down, depressed, or hopeless: not at all 3. Trouble falling or staying asleep, or sleeping too much: not at all 4. Feeling tired or having little energy: not at all 5. Poor appetite or overeating: not at all 6. Feeling bad about yourself - or that you are a failure or have let yourself or your family down: not at all 7. Trouble concentrating on things, such as reading the newspaper or watching television: not at all 8. Moving or speaking so slowly that other people could have noticed. Or the opposite - being so fidgety or restless that you have been moving around a lot more than usual: not at all 9. Thoughts that you would be better off or of hurting yourself in some way: not at all Total score: 0 Source: Developed by Drs. Juan A Taylor, Radha Joy, Antoni Prakash and colleagues, with an educational martinez from [employer]. Thrive Questionnaire Date Thrive assessed: 02/14/22 I am a: Patient What is your living situation today?: I have a steady place to live Within the past 12 months, did the food you bought not last and you didn't have the money to get more?: Never true Within the past 12 months, did you worry whether your food would run out before you got money to buy more?: Never true Do you have trouble paying for medicines?: No Do you have trouble getting transportation to medical appointments?: No Do you have trouble paying your heating and electricity bill?: No Do you have trouble taking care of your child, family member or friend?: No Do you have trouble with day-to-day activities such as bathing, preparing meals, shopping, managing finances, etc.?: No Are you currently unemployed and looking for a job?: No Are you interested in more education?: Yes Please select the resources that you would like help with: None THRIVE Score: 0 AUDIT C Alcohol Use Questionnaire (AUDIT-C) 1. How often do you have a drink containing alcohol?: Never 2. How many drinks containing alcohol do you have on a typical day when you are drinking?: 1 or 2 3. How often do you have six or more drinks on one occasion?: Never Total Score: 0 SATINDER-7 AMB Questionnaire SATINDER-7 Date SATINDER - 7 assessed: 12/07/23 Feeling nervous, anxious, or on edge: 0 = Not at all Not being able to stop or control worryin = Not at all Worrying too much about different things: 0 = Not at all Trouble relaxin = Not at all Being so restless that it is hard to sit still: 0 = Not at all Becoming easily annoyed or irritable: 0 = Not at all Feeling afraid as if something awful might happen: 0 = Not at all Total SATINDER-7 score (0-4 normal; 5-9 mild; 10-14 moderate; 15-21 severe): 0 Source: Developed by Drs. Juan A Taylor, Radha oJy, Antoni Prakash and colleagues, with an educational martinez from [employer]. Review of Systems Const Reports as per HPI Physical exam (Primary Care) Vital Signs: Last Vital Signs Pulse 72 12/07/23 09:28 BP 114/78 12/07/23 09:28 Pulse Ox 97 12/07/23 09:28 Oxygen Delivery Method Room Air 12/07/23 09:28 BMI result Body Mass Index 35.8 Tobacco/Smoking Status: Tobacco use Status Tobacco use date assessed 12/07/23 12/07/23 09:33 Patient Tobacco Use Status Never used Tobacco 12/07/23 09:33 e-Cigarette/Vaping Use Never Used 12/07/23 09:33 Thrive Assessment: Date of Thrive Assessment Date Thrive assessed 02/14/22 12/07/23 09:33 Const General: cooperative Nutritional Appearance: obese Orientation/consciousness: patient oriented x3 Eyes General: appearance normal, both eyes and all related structures Resp Effort & Inspection: normal respiratory effort Auscultation: clear to auscultation bilaterally Cardio Rate: regular rate Rhythm: regular rhythm Heart sounds: S1 normal heart sound present and S2 normal heart sound present Neuro General: patient oriented x3 Motor exam (neuro): 5/5 motor strength present throughout Psych Appearance: grossly normal Mental Status: mental status grossly normal Speech and movement: Normal speech and movement present Affect: normal affect Attitude: cooperative Thought process: Normal thought process present Thought content: Normal thought content present Insight: Good insight present (Psych) Judgement: Good judgement present (Psych) Assessment and Plan Assessment & Plan (1) Dyslipidemia: Code(s): E78.5 - Hyperlipidemia, unspecified Plan: Labs ordered (2) Hypertension: Code(s): I10 - Essential (primary) hypertension Plan: Stable, labs ordered Plan The patient agreed to the use of a director medical surgical for this encounter. Scribed for TIFFANI Hanson by Gregoria Rene director medical surgical, on 12/07/2023 at 09:35 EST. Orders: Orders UA CC w/rflx Micro + Cult Today E78.5 - Hyperlipidemia, unspecified, I10 - Essential (primary) hypertension Lipid Panel Today E78.5 - Hyperlipidemia, unspecified, I10 - Essential (primary) hypertension Complete Blood Count Auto Diff Today E78.5 - Hyperlipidemia, unspecified, I10 - Essential (primary) hypertension Comprehensive [place]. Panel Fast Today E78.5 - Hyperlipidemia, unspecified, I10 - Essential (primary) hypertension TSH reflex Free T4 Today E78.5 - Hyperlipidemia, unspecified, I10 - Essential (primary) hypertension Coding Level of Care Code Est Pt Level 3 (72714) Diagnoses Dyslipidemia E78.5 Hypertension I10
[2023-12-07 09:28] VITALS: BP 114/78; PULSE 72; O2SAT 97; BMI 35.8
== END 2023-12-07 11:47 | disposition home or self-care (01) ==
PROVIDERS: PCP Nurse Practitioner Family; Visit Provider Nurse Practitioner Family
DX: E78.5 Hyperlipidemia, unspecified (principal); I10 Essential (primary) hypertension
CPT/HCPCS: 99213

== ENCOUNTER 2023-12-12 12:14 | Outpatient (REF) | payer OTHER, SELFPAY ==
[2023-12-12 13:28] LABS: MANUAL DIFF FLAG NO
[2023-12-12 13:34] LABS: Basophils Percent Auto 0.6 % (0-2); Eosinophils Absolute Auto 0.1 X10*3/uL (0.0-0.4); Eosinophils Percent Auto 2.8 % (0-4); Hematocrit 42.5 % (42.0-52.0); Hemoglobin 14.8 g/dl (14.0-18.0); Imm Gran Abs Auto 0.01 X10*3/uL (0.00-0.03); Imm Gran Pct Auto 0.2 % (0.0-0.4); Lymphocytes Absolute Auto 1.8 X10*3/uL (1.2-4.9); Lymphocytes Percent Auto 36.3 % (20-40); Mean Corpuscular HGB Conc 34.8 g/dl (31.0-36.0); Mean Corpuscular Hemoglobin 29.8 pg (27.0-33.0); Mean Corpuscular Volume 85.5 fL (80.0-98.0); Mean Platelet Volume 9.6 fL (9.4-12.4); Monocytes Absolute Auto 0.7 X10*3/uL (0.1-1.2); Monocytes Percent Auto 13.8 % (2-11); Neutrophils Absolute Auto 2.3 x10*3/uL (2.0-8.3); Neutrophils Percent Auto 46.3 % (45-73); Platelet Count 267 X10*3/uL (160-400); Red Blood Count 4.97 X10*6/uL (4.60-5.80); Red Cell Distribution Width 12.3 % (11.0-16.0)
[2023-12-12 14:15] LABS: Alanine Aminotransferase 17 U/L (0-40); Albumin Level 4.1 g/dL (3.5-5.0); Alkaline Phosphatase 85 U/L (39-117); Anion Gap 13 (12-20); Aspartate Amino Transferase 16 U/L (5-37); Bilirubin Total 0.6 mg/dL (0.0-1.0); Blood Urea Nitrogen 15 mg/dL (9-16); Calcium 11.4 mg/dL (8.4-10.2); Carbon Dioxide 26 mmol/L (22-29); Chloride 106 mmol/L (96-108); Cholesterol 129 mg/dL (<200); Estimated Glomerular Filt Rate > 60; Glucose Fasting 88 mg/dL (60-99); HDL Cholesterol 52 mg/dL (>40); LDL Cholesterol Calculated 68 mg/dL (<100); Sodium 141 mmol/L (135-145); Total Protein 7.7 g/dL (6.5-8.0); Triglycerides 45 mg/dL (<150)
[2023-12-12 14:31] LABS: TSH reflex Free T4 0.65 uIU/mL (0.32-4.0)
[2023-12-12 16:27] LABS: Appearance Urine Clear; Color Urine Yellow; Glucose Urine UA Negative (Negative); Leukocyte Esterase Urine Negative (Negative); Nitrite Urine Negative (Negative); PH 5.5 (5.0-9.0); Urine Blood Negative (Negative); Urine Ketones Negative (Negative); Urine Protein Negative (Neg-Trace)
== END 2023-12-12 12:15 | disposition home or self-care (01) ==
LOC: HO.HMGCLDS 12:14
PROVIDERS: PCP Nurse Practitioner Family; Visit Provider Nurse Practitioner Family
DX: E78.5 Hyperlipidemia, unspecified (principal); I10 Essential (primary) hypertension
CPT/HCPCS: 36415; 80053; 80061; 81003; 84443; 85025

== ENCOUNTER 2023-12-21 08:15 | Outpatient (REF) | payer OTHER, SELFPAY ==
[2023-12-21 12:00] LABS: Parathyroid Hormone Intact 76.5 pg/mL (8.7-77.1)
[2023-12-21 12:05] LABS: Prostate Specific Antigen 1.29 ng/mL (<0.05-4.0)
[2023-12-25 13:23] LABS: Calcium, Ionized 5.2 mg/dL (4.7-5.5)
== END 2023-12-21 08:16 | disposition home or self-care (01) ==
LOC: HO.HMGCLDS 08:15
PROVIDERS: PCP Nurse Practitioner Family; Referring Provider Urology; Visit Provider Nurse Practitioner Family
DX: R97.20 Elevated prostate specific antigen [PSA] (principal); E83.52 Hypercalcemia; Z12.5 Encounter for screening for malignant neoplasm of prostate
CPT/HCPCS: 36415; 82330; 83970; 84153

== ENCOUNTER 2024-01-31 14:03 | Outpatient (AMB) | payer OTHER, SELFPAY ==
--- NOTE | 2024-01-31 14:32 | A.OFFVIS_ITS ---
Intake Intake Visit Reasons: 1Y PSA(set) Intake Note: Patient presents today for a yearly follow up on PSA Meds- Sildenafil Allergies to Antibiotic- No Known Allergies Blood Thinner- None [employer] Required: No Accompanied by: Self / Same As Patient Allergies No Known Allergies Allergy (Verified 01/31/24 14:33) Medication List - Last Reconciled 01/31/24 by Carlos Bowie MD atorvastatin 20 mg PO BEDTIME 90 days sildenafil 100 mg PO DAILY PRN 30 days HPI HPI Comments History of Present Illness Details Rafy is a pleasant male. He is a patient of Dr. Velasquez. He is seen for the following urologic conditions - elevated PSA - erectile dysfunction PSA 12/30 1.3 Good response to sildenafil on as needed basis Prescription provided 12 month follow-up Elevated PSA PSA 02/25 3.0 Laboratory - 02/24 T 284 Fr 53, FSH 1.8 LH 2.5, 12/29 2.2, 12/30 1.3 Minimal symptoms No family history Is on immunosuppression secondary to psoriasis Erectile dysfunction 100 mg sildenafil good response PFSH Medical History Subclinical hyperthyroidism Multinodular goiter Tubular adenoma Dyslipidemia Hypertension Psoriasis Surgical History Hx of colonoscopy Hx of foot surgery History of tooth extraction Family History Father HTN (hypertension) Unknown family medical history Mother HTN (hypertension) Sister No problems noted. Social History Housing: Condominium Alcohol intake: never Patient Tobacco Use Status: Never used Tobacco e-Cigarette/Vaping Use: Never Used Second Hand Smoke Exposure: No service: Yes Current occupational exposures/hazards: No Cognitive needs: No Hearing needs: No Vision needs: No Review of Systems Const Denies chills and Denies fever(s) Card Reports no additional complaints and Denies syncope Resp Denies cough GI Denies abdominal pain and Denies heartburn Reports as per HPI and Denies change in libido Neuro Denies syncope Psych Denies change in libido Endo Denies change in libido Physical Exam Const General: cooperative, healthy appearing, comfortable and no acute distress Orientation/consciousness: patient oriented x3 HEENT Face and sinus: Yes normal facial exam Mouth: moist mucous membranes Neck Neck: Yes normal visual inspection, Yes full ROM and Yes trachea midline Chest Chest palpation & inspection: normal inspection of the chest Resp Effort & Inspection: normal respiratory effort, able to speak in complete sentences and no respiratory distress GI Inspection: Yes normal to inspection Back/Spine/Pelvis Cervical Spine: normal cervical lordosis Thoracic/Lumbar Spine: thoracic and lumbar spine normal to inspection Skin General skin exam: no rashes or lesions noted Neuro General: patient oriented x3, gait normal, tone normal and moves all extremities Extrem General: Yes normal to inspection and Yes capillary refill normal Assessment & Plan Assessment & Plan (1) Erectile dysfunction: Code(s): N52.9 - Male erectile dysfunction, unspecified (2) Elevated PSA: Code(s): R97.20 - Elevated prostate specific antigen [PSA] Plan Twelve month follow-up PSA Orders: Orders Prostate Specific Antigen 364 Days N52.9 - Male erectile dysfunction, unspecified Medications: Refilled sildenafil administer 30 minutes to 4 hours before activity 100 mg PO DAILY PRN 30 tabs 1RF sexual activity 30 days N52.9 - Male erectile dysfunction, unspecified Patient Instructions: Imaging studies, laboratory and physical exam results were discussed and reviewed in detail. No major barriers to patient understanding were identified. An opportunity to ask questions regarding the treatment plan was provided. All questions were answered. The patient expressed understanding and agreement with the above treatment plan. The patient is aware they should contact our office by phone for worsening of their current condition or the appearance of new urologic symptoms. Compliance is encouraged with any medications and followup testing that is ordered. It is a privilege to participate in the urologic care of your patient. If you have any questions or concerns regarding treatment for the above conditions, or other urologic issues, please do not hesitate to contact me. The office telephone contact is [phone]. This note is constructed using voice recognition software. While every effort has been made to ensure accuracy english professor errors may have been included. Yours sincerely, Dr Carlos Bowie MD, [facility] Urology Providers of Expert, Compassionate Care for the Genitourinary System Coding Level of Care Code Est Pt Level 4 (69513) Diagnoses Erectile dysfunction N52.9 Elevated PSA R97.20
== END 2024-01-31 14:58 | disposition home or self-care (01) ==
PROVIDERS: Visit Provider Urology
DX: N52.9 Male erectile dysfunction, unspecified (principal); R97.20 Elevated prostate specific antigen [PSA]
CPT/HCPCS: 99213

== ENCOUNTER → 2024-01-31 14:03 | Outpatient (BNVA) | payer OTHER, SELFPAY | PROVIDERS: Visit Provider Urology | DX: N52.9 Male erectile dysfunction, unspecified (principal); R97.20 Elevated prostate specific antigen [PSA]; Z79.60 Long term (current) use of unspecified immunomodulators and immunosuppressants; Z79.899 Other long term (current) drug therapy | CPT/HCPCS: 99212 ==

== ENCOUNTER 2024-04-11 09:06 | Outpatient (REF) | payer OTHER, SELFPAY ==
[2024-04-14 09:54] LABS: TS Negative Control Passed; TS Panel A 0; TS Panel B 0; TS Positive Control Passed; TSpotTB Negative (Negative)
== END 2024-04-11 09:07 | disposition home or self-care (01) ==
LOC: HO.HMGCLDS 09:06
PROVIDERS: PCP Nurse Practitioner Family; Visit Provider Physician Assistant Medical
DX: L40.0 Psoriasis vulgaris (principal); Z79.899 Other long term (current) drug therapy
CPT/HCPCS: 36415; 86481

== ENCOUNTER 2024-05-18 09:50 | Outpatient (AMB) | payer OTHER, SELFPAY ==
--- NOTE | 2024-05-18 10:16 | MHC.OFFWIV ---
Intake Vital Signs 05/18/24 10:17 Height 6 ft Weight 261 lb BMI 35.4 BP 128/90 H Blood Pressure Location Rt brachial Position Sitting Pulse 77 Pulse Source Pulse Oximeter Temp 98.2 F Temp Source Oral Pulse Oximetry (%) 99 Oxygen Delivery Method Room Air Intake Visit Reasons: EP Weak, nausea Intake Note: Pt is here today c/o fatigue and nausea Patient Tobacco Use Status: Never used Tobacco Allergies No Known Allergies Allergy (Verified 05/18/24 10:19) HPI EP Weak, nausea HPI Details Week and nauseous for 7-10 days. Mild epigastric discomfort though he denies any lisette reflux. Discomfort not changed or worsened by exertion and patient is working out at a gym periodically. No sick contacts No diarrhea or blood in stool No fevers or chill PFSH Medical History Subclinical hyperthyroidism Multinodular goiter Tubular adenoma Dyslipidemia Hypertension Psoriasis Surgical History Hx of colonoscopy Hx of foot surgery History of tooth extraction Family History Father HTN (hypertension) Unknown family medical history Mother HTN (hypertension) Sister No problems noted. Social History Housing: Condominium Alcohol intake: never Patient Tobacco Use Status: Never used Tobacco e-Cigarette/Vaping Use: Never Used Second Hand Smoke Exposure: No service: Yes Current occupational exposures/hazards: No Cognitive needs: No Hearing needs: No Vision needs: No Review of Systems Const Denies chills, Reports fatigue, Denies fever(s), Denies headache(s) and Denies weakness ENT Denies dizziness and Denies headache(s) Card Denies chest pain with activity and Denies dyspnea Resp Denies cough, Denies dyspnea, Denies wheezing and Denies other ( shortness of breath) GI Details: See HPI Musc Denies numbness and Denies tingling Neuro Denies dizziness, Denies headache(s), Denies numbness, Denies tingling, Denies paresthesias and Denies weakness Psych Denies anxiety and Denies depression Endo Reports fatigue Aller/Immun Denies wheezing Physical Exam Vital Signs: Last Vital Signs Temp 98.2 F 05/18/24 10:17 Pulse 77 05/18/24 10:17 BP 128/90 H 05/18/24 10:17 Pulse Ox 99 05/18/24 10:17 Oxygen Delivery Method Room Air 05/18/24 10:17 BMI result Body Mass Index 35.4 Const General: no acute distress and well developed Nutritional Appearance: well nourished Orientation/consciousness: patient oriented x3 HEENT Head: Yes normocephalic and Yes atraumatic Eyes General: appearance normal, both eyes and all related structures Pupils: Equal, round and reactive pupils present EOM: EOMs intact bilaterally Resp Effort & Inspection: normal respiratory effort Auscultation: clear to auscultation bilaterally Cardio Rate: regular rate Rhythm: regular rhythm Heart sounds: S1 normal heart sound present, S2 normal heart sound present, no gallops, no murmurs and no rubs GI Other: Abdomen is soft, NT/ND No HSM Neuro General: patient oriented x3 and gait normal Cranial nerves: Yes Equal, round and reactive pupils present Psych Affect: normal affect Assessment & Plan Assessment & Plan (1) Nausea: Code(s): R11.0 - Nausea Plan: Nausea and some fatigue with epigastric discomfort Epigastric discomfort not exacerbated by exertion Possible gastroenteritis Possible gastritis/duodenitis Possible subacute pancreatitis Other Will give him a script for Zofran Hydrate well Mild meals Will also give him omeprazole Check labs including CBC, CMP and lipase If not improving, follow-up with PCP Orders: Orders Comprehensive Met. Panel Today R11.0 - Nausea Complete Blood Count Auto Diff Today R11.0 - Nausea, Z00.00 - Encounter for general adult medical examination without abnormal findings Lipase Today R11.0 - Nausea Troponin-I High Sensitivity Today R11.0 - Nausea Medications: New omeprazole 20 mg PO DAILY 30 days 30 tabs 0RF ondansetron 4 mg PO Q8H 14 days PRN 20 tabs 0RF nausea and vomiting Coding Level of Care Code Est Pt Level 3 (40593) Diagnoses Nausea R11.0
[2024-05-18 10:17] VITALS: BP 128/90; PULSE 77; TEMP 36.8; O2SAT 99; BMI 35.4
== END 2024-05-18 12:07 | disposition home or self-care (01) ==
PROVIDERS: PCP Nurse Practitioner Family; Visit Provider Family Medicine
DX: R11.0 Nausea (principal)
CPT/HCPCS: 99051; 99213

== ENCOUNTER 2024-05-18 10:46 | Outpatient (REF) | payer OTHER, SELFPAY ==
[2024-05-18 12:51] LABS: MANUAL DIFF FLAG NO
[2024-05-18 12:55] LABS: Basophils Percent Auto 0.6 % (0-2); Eosinophils Absolute Auto 0.1 X10*3/uL (0.0-0.4); Hematocrit 43.9 % (42.0-52.0); Hemoglobin 15.5 g/dl (14.0-18.0); Imm Gran Abs Auto 0.01 X10*3/uL (0.00-0.03); Imm Gran Pct Auto 0.2 % (0.0-0.4); Lymphocytes Absolute Auto 1.4 X10*3/uL (1.2-4.9); Lymphocytes Percent Auto 30.1 % (20-40); Mean Corpuscular HGB Conc 35.3 g/dl (31.0-36.0); Mean Corpuscular Hemoglobin 30.7 pg (27.0-33.0); Mean Corpuscular Volume 86.9 fL (80.0-98.0); Mean Platelet Volume 9.6 fL (9.4-12.4); Monocytes Absolute Auto 0.6 X10*3/uL (0.1-1.2); Monocytes Percent Auto 12.6 % (2-11); Neutrophils Absolute Auto 2.5 x10*3/uL (2.0-8.3); Neutrophils Percent Auto 53.5 % (45-73); Platelet Count 272 X10*3/uL (160-400); Red Blood Count 5.05 X10*6/uL (4.60-5.80); Red Cell Distribution Width 12.6 % (11.0-16.0); White Blood Count 4.6 X10*3/uL (4.8-10.8)
[2024-05-18 13:23] LABS: Alanine Aminotransferase 22 U/L (0-40); Albumin Level 4.4 g/dL (3.5-5.0); Alkaline Phosphatase 94 U/L (39-117); Anion Gap 12 (12-20); Aspartate Amino Transferase 17 U/L (5-37); Bilirubin Total 0.9 mg/dL (0.0-1.0); Blood Urea Nitrogen 17 mg/dL (9-16); Calcium 9.9 mg/dL (8.4-10.2); Carbon Dioxide 25 mmol/L (22-29); Chloride 106 mmol/L (96-108); Estimated Glomerular Filt Rate > 60; Glucose Random 103 mg/dL (60-115); Lipase 40 U/L (8-78); Sodium 139 mmol/L (135-145)
[2024-05-18 13:26] LABS: Troponin-I High Sensitivity < 2.7 ng/L (<3.5-35.0)
== END 2024-05-18 10:47 | disposition home or self-care (01) ==
LOC: HO.HMGCLDS 10:46
PROVIDERS: PCP Nurse Practitioner Family; Visit Provider Family Medicine
DX: Z00.00 Encounter for general adult medical examination without abnormal findings (principal); R11.0 Nausea
CPT/HCPCS: 36415; 80053; 83690; 84484; 85025

== ENCOUNTER 2024-06-05 16:12 | Outpatient (AMB) | payer OTHER, SELFPAY ==
--- NOTE | 2024-06-05 16:23 | MHC.OFFWIV ---
Intake Vital Signs 06/05/24 16:24 Height 6 ft Weight 261 lb BMI 35.4 BP 146/98 H Blood Pressure Location Rt brachial Position Sitting Pulse 75 Pulse Source Pulse Oximeter Temp 98.0 F Temp Source Oral Pulse Oximetry (%) 96 Oxygen Delivery Method Room Air Intake Visit Reasons: weakness, nausea, dull pain chest pain Intake Note: pt c/o weakness, nausea, dull chest pain. Ongoing. Worse after eating Patient Tobacco Use Status: Never used Tobacco Allergies No Known Allergies Allergy (Verified 06/05/24 16:24) Do you need a note to return to daycare/school/sports/work: No HPI HPI Comments History of Present Illness Details This is a 49-year-old male with past medical history of hyperlipidemia and multinodular goiter presenting for re-evaluation of nausea and a discomfort in his chest that he has had intermittently over the past 1 month. The patient states that neither symptom is constant and he denies having any overt chest pain but states he will occasionally feel a heavy sensation in his left and central chest. Patient was seen earlier in May and prescribed omeprazole which he continues to take daily and Zofran for his nausea which he has run out of. Patient denies having any fevers, chills, abdominal pain, shortness of breath, cough, vomiting, dyspepsia, eructations, diarrhea, dark or bloody stools. Laboratories obtained on previous visits are reviewed which also include a negative troponin. [facility] Medical History Subclinical hyperthyroidism Multinodular goiter Tubular adenoma Dyslipidemia Hypertension Psoriasis Surgical History Hx of colonoscopy Hx of foot surgery History of tooth extraction Family History Father HTN (hypertension) Unknown family medical history Mother HTN (hypertension) Sister No problems noted. Social History Housing: Condominium Alcohol intake: never Patient Tobacco Use Status: Never used Tobacco e-Cigarette/Vaping Use: Never Used Second Hand Smoke Exposure: No service: Yes Current occupational exposures/hazards: No Cognitive needs: No Hearing needs: No Vision needs: No Review of Systems Const All systems reviewed & are unremarkable except as noted in HPI and below Denies chills, Denies fatigue, Denies fever(s), Denies weight gain and Denies weight loss Eyes Reports no additional complaints ENT Reports no additional complaints Card Reports no additional complaints Resp Reports no additional complaints GI Denies abdominal pain, Denies belching, Denies bloating, Denies excessive flatus, Denies early satiety, Denies dyspepsia, Denies heartburn, Denies diarrhea, Denies loose stools, Reports nausea and Denies vomiting Reports no additional complaints Musc Reports no additional complaints Skin/Breast Reports system reviewed and no additional complaints, except as documented Neuro Reports no additional complaints Psych Reports no additional complaints Endo Reports no additional complaints and Denies fatigue Physical Exam Const General: cooperative, healthy appearing, comfortable, no acute distress, well developed, alert and Physically active; No lethargic Nutritional Appearance: overweight Orientation/consciousness: patient oriented x3 and No lethargic Limitations: no limitations Resp Effort & Inspection: normal respiratory effort and able to speak in complete sentences Auscultation: clear to auscultation bilaterally Cardio Rate: regular rate Rhythm: regular rhythm GI Palpation (GI): Soft to palpation, nontender, no guarding and not rigid Auscultation: normal bowel sounds General: Yes bladder normal to palpation Skin General skin exam: no rashes or lesions noted Neuro General: patient oriented x3 Psych Appearance: grossly normal Mental Status: mental status grossly normal Insight: Good insight present (Psych) Judgement: Good judgement present (Psych) Results Reviewed Results Reviewed: EKG 75bpm normal sinus rhythm Assessment & Plan Assessment & Plan (1) Nausea: Comment: Given the patient states the Zofran was not particularly helpful for his nausea, patient will be prescribed Reglan to use q.6 hours as needed. Code(s): R11.0 - Nausea Plan: Reglan 10 mg q.6 hours p.r.n. nausea (2) Chest discomfort: Comment: EKG reveals normal sinus rhythm; PCP is aware and will schedule cardiac stress testing as an outpatient. Code(s): R07.89 - Other chest pain Plan: Cardiac stress test appointment is pending; patient is aware that if chest pain increases or intensifies in intensity or changes in character at all, he must go to the emergency department immediately. Orders: Orders AMB EKG-In Office Today R07.9 - Chest pain, unspecified Medications: New metoclopramide HCl (Reglan) 10 mg PO Q6H PRN 14 tabs 0RF nausea Coding Level of Care Code Est Pt Level 4 (17035) Diagnoses Nausea R11.0 Chest discomfort R07.89 Time Spent (min) 30
[2024-06-05 16:24] VITALS: BP 146/98; PULSE 75; TEMP 36.7; O2SAT 96; BMI 35.4
== END 2024-06-05 16:54 | disposition home or self-care (01) ==
PROVIDERS: PCP Nurse Practitioner Family; Visit Provider Physician Assistant
DX: R11.0 Nausea (principal); R07.89 Other chest pain
CPT/HCPCS: 93000; 99214

== ENCOUNTER 2024-07-11 14:17 | Outpatient (AMB) | payer OTHER, SELFPAY ==
[2024-07-11 14:24] VITALS: BP 124/80; PULSE 78; O2SAT 98; BMI 35.4
--- NOTE | 2024-07-11 14:24 | A.OFFPC_ITS ---
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 Will order labs. Colon screen is up to date. PSA is up to date, sees urology. Pt is following up with endo and derm as well. Pt reports recent episodes of chest discomfort. He was seen in the walk-in for this and has an upcoming stress test. Will do an EKG in office and order echo. Pt reports that the pain can be reproduced (intermittently) with turning his upper torso or with sternal palpation. ? GERD/muscular. Denies any orthopnea or PND. PFSH Medical History Subclinical hyperthyroidism Multinodular goiter Tubular adenoma Dyslipidemia Hypertension Psoriasis Surgical History Hx of colonoscopy Hx of foot surgery History of tooth extraction Family History Father HTN (hypertension) Unknown family medical history Mother HTN (hypertension) Sister No problems noted. Social History Housing: Condominium Alcohol intake: never Patient Tobacco Use Status: Never used Tobacco e-Cigarette/Vaping Use: Never Used Second Hand Smoke Exposure: No service: Yes Current occupational exposures/hazards: No Cognitive needs: No Hearing needs: No Vision needs: No Questionnaire PHQ-9 Over the last 2 weeks, how often have you been bothered by any of the following problems? 1. Little interest or pleasure in doing things: not at all 2. Feeling down, depressed, or hopeless: not at all 3. Trouble falling or staying asleep, or sleeping too much: not at all 4. Feeling tired or having little energy: not at all 5. Poor appetite or overeating: not at all 6. Feeling bad about yourself - or that you are a failure or have let yourself or your family down: not at all 7. Trouble concentrating on things, such as reading the newspaper or watching television: not at all 8. Moving or speaking so slowly that other people could have noticed. Or the opposite - being so fidgety or restless that you have been moving around a lot more than usual: not at all 9. Thoughts that you would be better off or of hurting yourself in some way: not at all Total score: 0 Depression Screening Interpretation: Negative Depression Screening Done: Yes 46306 - PHQ-9 Billing: Yes Source: Developed by Drs. Juan A Taylor, Radha Joy, Antoni Prakash and colleagues, with an educational martinez from [employer]. Thrive Questionnaire Date Thrive assessed: 07/11/24 I am a: Patient What is your living situation today?: I have a steady place to live Within the past 12 months, did the food you bought not last and you didn't have the money to get more?: Never true Within the past 12 months, did you worry whether your food would run out before you got money to buy more?: Never true Do you have trouble paying for medicines?: No Do you have trouble getting transportation to medical appointments?: No Do you have trouble paying your heating and electricity bill?: No Do you have trouble taking care of your child, family member or friend?: No Do you have trouble with day-to-day activities such as bathing, preparing meals, shopping, managing finances, etc.?: No Are you currently unemployed and looking for a job?: No Are you interested in more education?: Yes Please select the resources that you would like help with: None Currently or been in a relationship where the following occur: No concerns reported THRIVE Score: 0 AUDIT C Alcohol Use Questionnaire (AUDIT-C) 1. How often do you have a drink containing alcohol?: Never 2. How many drinks containing alcohol do you have on a typical day when you are drinking?: 1 or 2 3. How often do you have six or more drinks on one occasion?: Never Total Score: 0 Score Reviewed/Action Taken: Yes SATINDER-7 AMB Questionnaire SATINDER-7 Date SATINDER - 7 assessed: 07/11/24 Feeling nervous, anxious, or on edge: 0 = Not at all Not being able to stop or control worryin = Not at all Worrying too much about different things: 0 = Not at all Trouble relaxin = Not at all Being so restless that it is hard to sit still: 0 = Not at all Becoming easily annoyed or irritable: 0 = Not at all Feeling afraid as if something awful might happen: 0 = Not at all Total SATINDER-7 score (0-4 normal; 5-9 mild; 10-14 moderate; 15-21 severe): 0 Source: Developed by Drs. Juna A Taylor, Radha Joy, Antoni Prakash and colleagues, with an educational martinez from [employer]. SATINDER-7 Assessment Billing SATINDER-7 Assessment Tool: SATINDER-7 Assessment 58992 Review of Systems Const Denies chills and Denies fever(s) Eyes Denies blurry vision ENT Denies vertigo, Denies dizziness and Denies sore throat Card Denies chest pain at rest, Denies chest pain with activity, Denies diaphoresis, Denies dyspnea and Denies dyspnea on exertion Resp Denies cough, Denies dyspnea, Denies dyspnea on exertion and Denies wheezing GI Denies abdominal pain, Denies melena, Denies hematochezia, Denies constipation, Denies diarrhea and Denies loose stools Denies hematuria Musc Denies numbness and Denies tingling Skin/Breast Denies lesions Neuro Denies vertigo, Denies dizziness, Denies numbness and Denies tingling Psych Denies anxiety, Denies depression, Denies homicidal ideation, Denies suicidal ideation and Denies other (substance abuse) Aller/Immun Denies wheezing Physical exam (Primary Care) Vital Signs: Last Vital Signs Pulse 78 07/11/24 14:24 BP 124/80 07/11/24 14:24 Pulse Ox 98 07/11/24 14:24 BMI result Body Mass Index 35.4 Tobacco/Smoking Status: Tobacco use Status Tobacco use date assessed 12/07/23 07/11/24 14:25 Patient Tobacco Use Status Never used Tobacco 07/11/24 14:25 e-Cigarette/Vaping Use Never Used 07/11/24 14:25 PHQ-9: PHQ-9 Score PHQ-9: Total score 0 07/11/24 14:44 Depression Screening Interpretation: Negative Thrive Assessment: Date of Thrive Assessment Date Thrive assessed 07/11/24 07/11/24 14:25 Currently or been in a relationship where the following occur: No concerns reported Const General: cooperative Nutritional Appearance: well nourished Orientation/consciousness: patient oriented x3 HENMT Head: Yes normal to inspection, Yes normocephalic and Yes atraumatic Ears: TM's normal bilaterally Eyes General: appearance normal, both eyes and all related structures Alignment and Position: alignment normal and position normal Neck Neck: Yes normal visual inspection, Yes no lymphadenopathy and Yes supple Chest Other: minimal chest discomfort with palpation Resp Effort & Inspection: normal respiratory effort Auscultation: clear to auscultation bilaterally Cardio Rate: regular rate Rhythm: regular rhythm Heart sounds: S1 normal heart sound present, S2 normal heart sound present and no murmurs GI Palpation (GI): Soft to palpation and nontender Auscultation: normal bowel sounds Male General Exam: Yes normal external exam Penis: normal penis Scrotum: scrotum normal, testes descended bilaterally and no inguinal hernias Testes: no testicular mass Skin Rashes: no rashes Neuro General: patient oriented x3, moves all extremities, no focal motor deficits and deep tendon reflexes 2+ bilaterally Romberg Test: Negative Psych Appearance: grossly normal Mental Status: mental status grossly normal Speech and movement: Normal speech and movement present Affect: normal affect Attitude: cooperative Thought process: Normal thought process present Thought content: Normal thought content present Insight: Good insight present (Psych) Judgement: Good judgement present (Psych) Assessment and Plan Assessment & Plan (1) Encounter for routine adult physical exam with abnormal findings: Code(s): Z00.01 - Encounter for general adult medical examination with abnormal findings (2) Chest discomfort: Code(s): R07.89 - Other chest pain Plan: echo ordered, stress test scheduled, pain seems more reproducible. Plan The patient agreed to the use of a medical technologist chemistry for this encounter. Scribed for TIFFANI Hanson by Gregoria Rene medical technologist chemistry, on 07/11/2024 at 14:45 EST. Orders: Orders UA CC w/rflx Micro + Cult Today Z00.01 - Encounter for general adult medical examination with abnormal findings Lipid Panel Today Z00.01 - Encounter for general adult medical examination with abnormal findings Complete Blood Count Auto Diff Today Z00.01 - Encounter for general adult medical examination with abnormal findings Comprehensive [place]. Panel Fast Today Z00.01 - Encounter for general adult medical examination with abnormal findings TSH reflex Free T4 Today Z00.01 - Encounter for general adult medical examination with abnormal findings CA echo transthoracic complete Today R07.89 - Other chest pain Coding Level of Care Code Est Pt Prev Care 40-64y(58850) Diagnoses Encounter for routine adult physical exam with abnormal findings Z00.01 Chest discomfort R07.89 Additional Codes SATINDER-7 Assessment Billing - SATINDER-7 Assessment Tool: SATINDER-7 Assessment 61622 ([id number])
== END 2024-07-11 15:17 | disposition home or self-care (01) ==
PROVIDERS: PCP Nurse Practitioner Family; Visit Provider Nurse Practitioner Family
DX: Z00.00 Encounter for general adult medical examination without abnormal findings (principal); R07.89 Other chest pain
CPT/HCPCS: 99396

== ENCOUNTER 2024-07-12 06:25 | Outpatient (REF) | payer OTHER, SELFPAY ==
[2024-07-12 10:06] LABS: MANUAL DIFF FLAG NO
[2024-07-12 10:09] LABS: Appearance Urine Clear; Color Urine Dark Yellow; Glucose Urine UA Negative (Negative); Leukocyte Esterase Urine Trace (Negative); Nitrite Urine Negative (Negative); UMIC TRIGGER UACC YES; Urine Blood Negative (Negative); Urine Ketones Trace mg/dL (Negative); Urine Protein Negative (Neg-Trace)
[2024-07-12 10:10] LABS: Basophils Percent Auto 0.7 % (0-2); Eosinophils Absolute Auto 0.2 X10*3/uL (0.0-0.4); Eosinophils Percent Auto 4.6 % (0-4); Hematocrit 42.4 % (42.0-52.0); Hemoglobin 14.9 g/dl (14.0-18.0); Imm Gran Abs Auto 0.01 X10*3/uL (0.00-0.03); Imm Gran Pct Auto 0.2 % (0.0-0.4); Lymphocytes Absolute Auto 1.4 X10*3/uL (1.2-4.9); Lymphocytes Percent Auto 31.6 % (20-40); Mean Corpuscular HGB Conc 35.1 g/dl (31.0-36.0); Mean Corpuscular Hemoglobin 30.8 pg (27.0-33.0); Mean Corpuscular Volume 87.6 fL (80.0-98.0); Mean Platelet Volume 9.7 fL (9.4-12.4); Monocytes Absolute Auto 0.9 X10*3/uL (0.1-1.2); Monocytes Percent Auto 19.9 % (2-11); Neutrophils Absolute Auto 1.9 x10*3/uL (2.0-8.3); Platelet Count 255 X10*3/uL (160-400); Red Blood Count 4.84 X10*6/uL (4.60-5.80); Red Cell Distribution Width 12.3 % (11.0-16.0); White Blood Count 4.4 X10*3/uL (4.8-10.8)
[2024-07-12 10:17] LABS: Bacteria Urine None Seen (None Seen); Hyaline Casts Urine 0-2 /LPF (0-2); RBC Urine 0-2 /HPF (0-2); Squamous Epithelial Cell Urine 0-2 /HPF (0-2); WBC Urine 0-5 /HPF (0-5)
[2024-07-12 10:44] LABS: Alanine Aminotransferase 21 U/L (0-40); Albumin Level 4.2 g/dL (3.5-5.0); Alkaline Phosphatase 100 U/L (39-117); Anion Gap 12 (12-20); Aspartate Amino Transferase 16 U/L (5-37); Bilirubin Total 0.8 mg/dL (0.0-1.0); Blood Urea Nitrogen 12 mg/dL (9-16); Calcium 9.6 mg/dL (8.4-10.2); Carbon Dioxide 26 mmol/L (22-29); Chloride 105 mmol/L (96-108); Cholesterol 151 mg/dL (<200); Estimated Glomerular Filt Rate > 60; Glucose Fasting 96 mg/dL (60-99); HDL Cholesterol 52 mg/dL (>40); LDL Cholesterol Calculated 81 mg/dL (<100); Sodium 139 mmol/L (135-145); Total Protein 7.7 g/dL (6.5-8.0); Triglycerides 94 mg/dL (<150)
[2024-07-12 11:04] LABS: TSH reflex Free T4 1.37 uIU/mL (0.32-4.0)
== END 2024-07-12 06:26 | disposition home or self-care (01) ==
LOC: HO.HMGCLDS 06:25
PROVIDERS: PCP Nurse Practitioner Family; Visit Provider Nurse Practitioner Family
DX: Z00.01 Encounter for general adult medical examination with abnormal findings (principal)
CPT/HCPCS: 36415; 80053; 80061; 81001; 84443; 85025

== ENCOUNTER → 2024-07-24 07:42 | Outpatient (REF) | payer OTHER, SELFPAY ==
--- NOTE | ~2024-07-24 | NM_ITS ---
EXERCISE MYOCARDIAL PERFUSION STUDY INDICATION: Chest discomfort TECHNIQUE: The patient was brought in for an exercise perfusion study on 07/24/2024. Patient performed exercise as per Jam protocol and was injected 40 mCi of sestamibi once target heart rate was achieved. Images were obtained using the SPECT gamma camera interlaced with the gating device. Images were obtained in supine position. Resting perfusion study was performed on 07/25/2024. Patient was administered 40 mCi of sestamibi intravenously at rest. Images were then obtained in supine position. Total DLP 111 mGy-cm. Images were processed with the software and compared side to side in short axis, horizontal long axis and vertical long axis views. FINDINGS: Raw aquisition reviewed. The stress perfusion study showed mildly reduced tracer uptake in the basal part of anterior wall. There is improvement with CT attenuation correction and hence could indicate soft tissue attenuation artifact. The gated study shows normal LV systolic function with calculated LVEF of 72%. LV cavity is normal in size. The gated study shows normal wall thickening and contraction of segments. Resting study shows no significant perfusion abnormality. Gating at rest reveals normal wall motion with ejection fraction at 70%. The findings are consistent with no clear reversible or fixed perfusion abnormality. NM/NM cardiolite stress test IMPRESSION: 1. Myocardial perfusion imaging study shows probably normal myocardial perfusion. 2. Gated LVEF is 72% during stress and 70% during rest. 3. Transient ischemic dilatation not present. EKG component of the test reported separately. Electronically signed by: Sameer Villaseñor MD 07/25/2024 04:00 PM EDT
--- NOTE | 2024-07-24 07:46 | CA_ITS ---
Acquisition Time: 2024-07-24 07:49:10 Total Exercise Time: 00:09:00 Test Indications: CP Medications: SEE H Protocol: NEENA Max HR: 150 BPM 88% of Pred: 169 BPM Max BP: 170/068 mmHG Max Work Load: 10.1 METS Exercise stress test exercise 9 min of Neena protocol achieivng 88% MPHR, without anginal symptoms, without arrhythmias, with normotensive response to exercise, without EKG changes from baseline. Nuclear images pending. Test reviewed with Dr. Skinner EKG in stress lab set up showed downsloping in leads 2, aVF, V3-V6 which disppeared when placed into 12 lead limb lead placement. Referred By: Issac Lee Overread By: Kimberly Frank
== END ==
LOC: HO.CARD 07:42
PROVIDERS: PCP Nurse Practitioner Family; Visit Provider Nurse Practitioner Family
DX: R07.89 Other chest pain (principal)
CPT/HCPCS: 78452; 93017; A9500

== ENCOUNTER → 2024-07-24 07:46 | Outpatient (BNV) | payer OTHER, SELFPAY | PROVIDERS: PCP Nurse Practitioner Family; Visit Provider Nurse Practitioner | DX: R07.9 Chest pain, unspecified (principal) | CPT/HCPCS: 78452; 93016; 93018 ==

== ENCOUNTER 2024-08-23 09:11 | Outpatient (AMB) | payer OTHER, SELFPAY ==
[2024-08-23 09:46] VITALS: BP 126/74; PULSE 74; O2SAT 98; BMI 36.5
--- NOTE | 2024-08-23 09:46 | AM.OFFWIN_ITS ---
Intake Vital Signs 3 08/23/24 09:46 Height 6 ft Weight 269 lb BMI 36.5 BP 126/74 Blood Pressure Location Lt brachial Position Sitting Pulse 74 Pulse Source Pulse Oximeter Pulse Oximetry (%) 98 Oxygen Delivery Method Room Air Intake Visit Reasons: EP-lt shoulder pain Patient Tobacco Use Status: Never used Tobacco Allergies No Known Allergies Allergy (Verified 08/23/24 09:47) Medication List - Last Reconciled 08/23/24 by Akil Elias MD atorvastatin 20 mg PO BEDTIME 90 days metoclopramide HCl (Reglan) 10 mg PO Q6H PRN omeprazole 20 mg PO DAILY 30 days ondansetron 4 mg PO Q8H PRN 14 days secukinumab (Cosentyx UnoReady Pen) mg subcut sildenafil 100 mg PO DAILY PRN 30 days Do you need a note to return to daycare/school/sports/work: No HPI EP-lt shoulder pain 2 HPI0 Details Patient is a 49-year-old gentleman came in today to be evaluated for left shoulder pain which has been happening since April of this year 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 sent for 10 days to be taken with food Letter given to avoid wearing her nose for 2 weeks Follow up with primary care [facility] Medical History Subclinical hyperthyroidism Multinodular goiter Tubular adenoma Dyslipidemia Hypertension Psoriasis Surgical History Hx of colonoscopy Hx of foot surgery History of tooth extraction Family History Father HTN (hypertension) Unknown family medical history Mother HTN (hypertension) Sister No problems noted. Social History Housing: Condominium Alcohol intake: never Patient Tobacco Use Status: Never used Tobacco e-Cigarette/Vaping Use: Never Used Second Hand Smoke Exposure: No service: Yes Current occupational exposures/hazards: No Cognitive needs: No Hearing needs: No Vision needs: No Review of Systems Const All systems reviewed & are unremarkable except as noted in HPI and below Physical Exam Vital Signs: Last Vital Signs Pulse 74 08/23/24 09:46 BP 126/74 08/23/24 09:46 Pulse Ox 98 08/23/24 09:46 Oxygen Delivery Method Room Air 08/23/24 09:46 BMI result Body Mass Index 36.5 Const General: no acute distress Orientation/consciousness: patient oriented x3 Eyes General: appearance normal, both eyes and all related structures Resp Effort & Inspection: normal respiratory effort and able to speak in complete sentences Neuro General: patient oriented x3 Extrem Shoulder/upper arm images: 2 1. 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 sent for 10 days to be taken with food Letter given to avoid wearing her nose for 2 weeks Follow up with primary care Orders: Orders 2 PT Evaluation and Treatment Today M25.512 - Pain in left shoulder Medications: New 2 diclofenac sodium 75 mg PO BID 20 tabs 0RF pain 10 days Coding Level of Care Code Est Pt Level 3 (86747) Diagnoses Chronic left shoulder pain M25.512; G89.29 Chronicity: chronic
== END 2024-08-23 09:58 | disposition home or self-care (01) ==
PROVIDERS: PCP Nurse Practitioner Family; Visit Provider Internal Medicine
DX: M25.512 Pain in left shoulder (principal); G89.29 Other chronic pain

== ENCOUNTER → 2024-08-23 09:11 | Outpatient (BNVA) | payer OTHER, SELFPAY | PROVIDERS: PCP Nurse Practitioner Family; Visit Provider Internal Medicine | DX: M25.512 Pain in left shoulder (principal); G89.29 Other chronic pain | CPT/HCPCS: 99212 ==

== ENCOUNTER → 2024-09-02 07:40 | Outpatient (REF) | payer OTHER, SELFPAY ==
--- NOTE | 2024-09-02 07:42 | CA_ITS ---
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 The calculated ejection fraction is 64% by biplane method. - No obvious valvular pathology seen on this study. Findings Left Ventricle Normal left ventricular cavity size. There is mildly increased left ventricular wall thickness. The left ventricular systolic function is normal. The calculated ejection fraction is 64% by biplane method. There is no evidence of regional wall motion abnormalities. Diastolic function is normal for age. Right Ventricle Mildly increased right ventricular cavity size. There is normal right ventricular systolic function. Atria Both atria are normal in size. Aortic Valve There is a normal trileaflet aortic valve. There is no aortic valve stenosis. There is no aortic valve regurgitation. Mitral Valve The mitral valve appears normal. There is no mitral valve regurgitation. There is no mitral valve stenosis. Pulmonic Valve The pulmonic valve is likely normal. Tricuspid Valve There is trace tricuspid valve regurgitation. There is no evidence of pulmonary hypertension. Great Vessels The asc aorta is normal in size. Venous The inferior vena cava is normal in size and collapses greater than 50% with inspiration. Pericardium/Pleural There is no evidence of pericardial effusion. Prior Study Comparison No prior study available for comparison. Recommendations, Care & Conclusions No obvious valvular pathology seen on this study. Measurements 2D Linear Measurements IVSd: 1.27 0.6-0.9/0.6-1.0 cm LVIDd: 4.81 3.9-5.3/4.2-5.9 cm LVIDd Index: 2.00 2.4-3.2/2.2-3.1 cm/m2 LVIDs: 2.83 2.0-3.6 cm LVPWd: 1.22 0.7-1.1 cm Ao Root: 3.50 2.1-3.5 cm LA Diam: 3.90 2.7-3.8/3.0-4.0 cm LAIDs Index: 1.63 1.5-2.3 cm/m2 LV Mass: 288.84 67-162/88-224 g LV Mass Index: 120.35 43-95/49-115 g/m2 LVOT Diam: 2.50 3.0+(-)1.3 cm 2D Systolic Function EF 4C: 61.80 >55% EF 2C: 67.10 >55% EF BiP: 64.10 >55% Mitral Valve MV Pk E: 0.96 MV PK A: 0.80 MV Decel Time: 169.00 E/A: 1.20 E'Lateral: 10.80 E'Medial: 7.83 E/E' Med: 12.20 E/E' Lat: 8.80 PHT: 49.00 MVA PHT: 4.49 Decel [place]: 5.66 Aortic Valve AoV Pk Иван: 1.33 AoV Mn Иван: 0.94 AoV VTI: 0.33 AoV Pk Grad: 7.00 Aov Mn Grad: 4.00 TANIA Cont.VTI: 3.68 LVOT LVOT Pk Иван: 1.04 LVOT Mn Иван: 0.73 LVOT VTI: 0.25 LVOT Pk Grad: 4.00 LVOT Mn Grad: 3.00 LVOT Diam: 2.50 LVOT Area: 4.91 Diastolic Function MV Pk E: 0.96 MV Pk A: 0.80 E/A: 1.20 E'Medial: 7.83 E/E' Med: 12.20 E' Laterial: 10.80 E/E' Lat: 8.80 Right Ventricle TAPSE (mm): 30.00 TVS' Иван: 13.00 Tricuspid Valve TR Pk Иван: 2.35 TR Pk Grad: 22.00 RA Press: 3.00 RVSP: 25.00 Great Vessels Aorta Ao Root-2D: 3.50 2.0-3.7 cm Ao Asc: 3.60 2.1-3.4 cm Pulmonary Valve PV Pk Иван: 0.84 Peak PV Grad: 3.00 Updated in Other Vendor System with Status of Final Sameer Villaseñor MD electronically signed on 09/02/2024 10:29:02 AM with status of Final
== END ==
LOC: HO.CARD 07:40
PROVIDERS: PCP Nurse Practitioner Family; Visit Provider Nurse Practitioner Family
DX: R07.89 Other chest pain (principal); G47.9 Sleep disorder, unspecified; R06.83 Snoring
CPT/HCPCS: 93306; 95810

== ENCOUNTER → 2024-09-02 07:42 | Outpatient (BNV) | payer OTHER, SELFPAY | PROVIDERS: PCP Nurse Practitioner Family; Visit Provider Internal Medicine | DX: R07.89 Other chest pain (principal) | CPT/HCPCS: 93306 ==

== ENCOUNTER → 2024-09-02 20:30 | Outpatient (BNV) | payer OTHER, SELFPAY | PROVIDERS: PCP Nurse Practitioner Family; Visit Provider Internal Medicine | DX: R06.83 Snoring (principal) | CPT/HCPCS: 95810 ==

== ENCOUNTER 2024-10-07 07:00 | Outpatient (RCR) | payer OTHER, SELFPAY ==
--- NOTE | 2024-09-16 09:44 | MHC.PT.EP ---
[facility] [place] Office [place] Office [place] Office [address] [phone] F: [phone] F: [phone] F: [phone] F: [phone] Physical Therapy Plan of Care Date of Evaluation: 09/16/24 Date of Surgery: Diagnosis: L shoulder pain Assessment: 49 y/o R-hand dominant male referred to PT with L shoulder pain. S/s consistent with tendinopathy resulting in pain and difficulty with performing overhead motion, lifting, carrying and sometimes sleeping on that side. Examination shows normal shoulder ROM, strong but painful L shoulder strength, decreased scapular strength, rounded shoulder posturing, and pain anterior shoulder. Recommend PT 2x/week for 4 weeks to address impairments, implement HEP, and optimize functional mobility. 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 Manual therapy to restore motion and function. Therapeutic exercise to improve strength and flexibility. Neuromuscular re-education for posture and balance. Therapeutic activities to return to functional activities of daily living. Electronically signed by: Brigid Lawrence PT Please sign and return to therapist. Thank you for your referral.
--- NOTE | 2024-11-22 07:38 | MHC.PT.DC ---
[facility] [place] Office [place] Office [place] Office [address] [phone] F: [phone] F: [phone] F: [phone] F: [phone] Physical Therapy Discharge Report Diagnosis: L shoulder pain Date of Surgery: Date of Evaluation: 09/16/24 Date of Discharge: 11/22/24 Treatments to Date: 6 Cancellations to Date: 0 No Shows to Date: 0 Discharge Status: Improved Function Independent with HEP Discharge Summary: Presents with full ROM and no longer has end range pain. He has been very motivated and compliant with HEP. Pt did not attend final visits however d/t work conflicts. Electronically signed by: Brigid Lawrence PT Please sign and return to therapist. Thank you for your referral.
== END 2024-11-22 07:38 | disposition home or self-care (01) ==
LOC: HO.PTCHIC 07:00
PROVIDERS: PCP Nurse Practitioner Family; Visit Provider Internal Medicine
DX: M25.512 Pain in left shoulder (principal)
CPT/HCPCS: 97110; 97161

== ENCOUNTER 2025-01-08 07:54 | Outpatient (RCR) | payer OTHER, SELFPAY ==
--- NOTE | 2024-11-18 10:00 | MHC.OT.EP ---
[address] [phone] Occupational Therapy Plan of Care Patient Name: Rafy Mckeon Date of Evaluation: 11/18/24 Diagnosis: Left forearm and elbow pain Pain Location: Left forearm and around elbow, radiates in wrist at times Pain Score: 3 Pain Scale Used: Numeric (0 - 10) Aggravating Factors: Resting arm on tabletop Alleviating Factors: Rest Assessment: 49 yo male reports left forearm pain over the last few months. He has been going to physical therapy for left shoulder strain and has done well to this point, but now forearm pain has become more prominent, especially when resting arm down on surfaces or while sleeping. On assessment today, he continues to have tightness in left shoulder, but overall good function. He has tightness w/ end range elbow extension and muscle tightness through forearm, but now loss of sensation, strength or coordination. He has noted tremor through left hand at times, but tremor stops when he moves out of irritating position. Symptoms are consistent w/ ulnar neuropathy and general muscle imbalance. I anticipate he will do well w/ course of OT for activity modification and progression of massage and functional strengthening. Frequency and Duration: The patient will be seen 2x/wk for 4 weeks Short Term Goals: Ind w/ HEP Ind w/ use of heat for soft tissue Ind w/ self massage Good follow through w/ activity modification to reduce pressure on forearm Residential Goals: Pt to report ease w/ symptoms while following positional modifications Pt to report ease w/ sleeping through night Ind w/ progression of strengthening program Treatment Plan: Therapeutic Exercise Therapeutic Activity Home Exercise Program Splinting Neuro Re-ed Patient Education Desensitization/Sensory Re-ed ADL Training Paraffin Fluidotherapy MHP Soft Tissue Mobilization Kinesiotaping Nighttime orthosis Electronically Signed By: Coco Gar OTR/L CHT Please Sign and return to therapist. Thank you once again for your referral.
--- NOTE | 2025-01-08 11:10 | MHC.OT.DC ---
[address] [phone] F: [phone] Occupational Therapy Discharge Note Patient Name: Rafy Mckeon Provider: Dr Issac Lee Diagnosis: Left forearm and elbow pain Date of Evaluation: 11/18/24 Date of Discharge: 01/08/25 Treatments to Date: 10 Discharge Status: Achieved Goals Improved Function Independent with HEP Discharge Summary: Rafy was referred to OT with left arm pain more persistent over the past few months and worsening w/ certain positions or while sleeping. He has completed course of OT and is doing well. He is pain free and has good use of left arm w/ all daily activitis, back to full gym routine. His only concern at this time w/ occasional tremor in left hand that occurs in resting position. He does have tightness through upper back and scapular w/ decreased shoulder range, which may be contributing. It has diminished somewhat but is still persistent and he has asked for neuro consult. He has met all therapy goals and is Ind w/ HEP and pain free, but will continue to stretch and be mindful of body mechanics with daily activities and sleep. Electronically Signed By: MARICRUZ Moody/Yoselin CHT Reviewed/agree with student documentation: Therapist: Please Sign and return to therapist, thank you for your referral.
== END 2025-01-08 11:11 | disposition home or self-care (01) ==
LOC: HO.OT 07:54
PROVIDERS: PCP Nurse Practitioner Family; Visit Provider Nurse Practitioner Family
DX: M25.522 Pain in left elbow (principal); M79.632 Pain in left forearm
CPT/HCPCS: 29125; 97110; 97140; 97165; 97760

== ENCOUNTER 2025-01-16 11:20 | Outpatient (REF) | payer OTHER, SELFPAY ==
[2025-01-16 14:31] LABS: Adenovirus PCR Not Detected (Not Detect.); Bordetella parapertussis PCR Not Detected (Not Detect.); Bordetella pertussis PCR Not Detected (Not Detect.); Chlamydia pneumoniae PCR Not Detected (Not Detect.); Coronavirus 229E PCR Not Detected (Not Detect.); Coronavirus HKU1 PCR Not Detected (Not Detect.); Coronavirus NL63 PCR Not Detected (Not Detect.); Coronavirus OC43 PCR Not Detected (Not Detect.); Human metapneumovirus PCR Not Detected (Not Detect.); Influenza B PCR Not Detected (Not Detect.); Mycoplasma pneumoniae PCR Not Detected (Not Detect.); Parainfluenza 1 PCR Not Detected (Not Detect.); Parainfluenza 2 PCR Not Detected (Not Detect.); Parainfluenza 3 PCR Not Detected (Not Detect.); Parainfluenza 4 PCR Not Detected (Not Detect.); RSV PCR Not Detected (Not Detect.); Rhino/Enterovirus PCR Not Detected (Not Detect.)
[2025-01-16 14:38] LABS: Influenza A PCR Detected (Not Detect.); SARS-CoV-2 PCR Not Detected (Not Detect.)
--- OUTSIDE RECORDS SUMMARY | 2025-01-16 16:40 | XMS_ITS | Continuity of Care Document ---
Author Name [facility] Organization 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 Unavailable Unavailable Immunizations Combined list of available immunizations from the Department of Defense and Veterans Affairs facilities. Immunization Series Date Given Administered By Site Reaction Lot Number CVX Code Drug Bankruptcy Law Specialist Status Comments Source tetanus, diphtheria, acellular pertu is 2021 [id number] sanofi pasteur complet ed tetanus, diphtheri a, acellular pertussis 09/27/22 Given Ambulat ory Pharmac y COVID Vaccine Moderna 2020 [id number] complet ed COVID Vaccine Moderna 08/24/21 Given Ambulat ory Pharmac y COVID Vaccine Moderna 2020 [id number] complet ed COVID Vaccine Moderna 07/27/21 Given Ambulat ory Pharmac y influenza virus vaccine, unspecified 2017 TRANSCR [id number] 88 complet ed influenza virus vaccine, unspecifi ed 08/30/18 Given Ambulat ory Pharmac y influenza, seasonal, injectable-pf 2016 [id number] Seqirus complet ed influenza , seasonal, injectabl e-pf 10/08/17 Given Ambulat ory Pharmac y influenza, injectable, quadrivalent- pf 2015 150 GlaxoSmithKli ne complet ed influenza , injectabl e, quadrival ent-pf 09/13/16 Given Ambulat ory Pharmac y influenza, injectable, quadrivalent- pf 2014 150 sanofi pasteur complet ed influenza , injectabl e, quadrival ent-pf 08/25/15 Given Ambulat ory Pharmac y influenza, seasonal, injectable 2013 [id number] CSL Behring complet ed influenza , seasonal, injectabl e 08/05/14 Given Ambulat ory Pharmac y influenza, seasonal, injectable 2012 141 complet ed influenza , seasonal, injectabl e 08/03/13 Given Ambulat ory Pharmac y tetanus, diphtheria, acellular pertu is 2011 [id number] 115 sanofi pasteur complet ed tetanus, diphtheri a, acellular pertussis 08/19/12 Given Ambulat ory Pharmac y influenza, seasonal, injectable-pf 2011 [id number] 140 CSL Behring complet ed influenza , [...] Pharmac y influenza virus vaccine, live 2009 [id number] 111 MedimmQ-Sensei Inc comple t ed influenza virus vaccine, live 09/11/10 Given Ambulat ory Pharmac y Novel influenza-H1N 1-09, injectable 2009 [id number] 127 Novartis Pharmaceutica ls complet ed Novel influenza -L3E4-19, injectabl e 12/04/09 Given Ambulat ory Pharmac y influenza virus vaccine, live 2008 [id number] 111 Medimmune Inc comple t ed influenza virus vaccine, live 08/11/09 Given Ambulat ory Pharmac y typhoid Vi capsular polysaccharid e vac 2007 [id number] 101 sanofi pasteur complet ed typhoid Vi [...] ory Pharmac y influenza virus vaccine,split 2005 [id number] 15 Unknown complet ed influenza virus vaccine,s plit 10/24/06 Given Ambulat ory Pharmac y influenza virus vaccine,split 2004 [id number] 15 sanofi pasteur complet ed influenza virus [...] ory Pharmac y poliovirus vaccine, inactivated 2004 [id number] 10 sanofi pasteur complet ed polioviru s vaccine, inactivat ed 12/24/04 Given Ambulat ory Pharmac y influenza virus vaccine, live 2004 [id number] 111 Evo.com Inc comple t ed influenza virus vaccine, [...] Pharmac y hepatitis B adult vaccine 2003 [id number] 43 GlaxoSmithKli ne complet ed hepatitis B adult vaccine 02/07/04 Given Ambulat ory Pharmac y tetanus-dipht h toxoids (Td) adult/adol 2003 [id number] 09 sanofi pasteur complet ed tetanus-d iphth toxoids (Td) adult/ado l 02/07/04 Given Ambulat ory Pharmac y hepatitis A adult vaccine 2003 [id number] 52 Merck & Company Inc complet ed hepatitis A adult vaccine 02/07/04 Given Ambulat ory Pharmac y tuberculin purified protein derivative 2003 [id number] 96 sanofi pasteur complet ed tuberculi n purified protein derivativ e 02/07/04 Given Ambulat ory Pharmac y tuberculin purified protein derivative 2002 [id number] 96 sanofi pasteur complet ed tuberculi n purified protein derivativ e 09/07/03 Given Ambulat ory Pharmac y influenza virus vaccine, whole virus 2002 [id number] Novartis Pharmaceutica ls complet ed influenza virus vaccine, whole virus 09/07/03 Given Ambulat ory Pharmac y influenza virus vaccine, whole virus 2002 [id number] 16 Novartis Pharmaceutica ls complet ed influenza [...] Prevention' s HIV diagnostic algorithm. Refer to [facility] Lab Guide for additional information : [email or web address] x Testing performed by [employer] elise ce. 5600A-U [facility] [employer] Miscellan eous Sendouts Repository Sample Received (11/21/24 1:57 PM) 11/21 N 5600A-U [facility] Encounters Combined list of: 1) Encounters from Department of [facility] facilities going backup to the last 18 months, not all OR inpatient encounters are included; 2) Encounters from the [facility] facilities going backup to 280 months. Location Location Details Encounter Type Encounter Number Reason For Visit Attending Provider ADM Date DC Date Status Disposition Source [id number] AMDS Outpatient [id number] HENRY ROBERSON 12/06 Discharge Disposition: Home or Self Care 8344R-4 [id number] AMDS [id number] AMDS Care Not Rendered [id number] 12/11 Discharge Disposition: Home or Self Care 8344R-4 39 AMDS Procedures Combined list of: 1) Procedures from Department of [facility] facilities going back up to thelast 18 months, not all OR non-surgical procedures are included; 2) All procedures from the [facility] facilities. Procedure Procedure Type Code Date Perfomer Comments Sourc e No data available for this section Ambulatory P harmacy Social History Combined list of available smoking, tobacco, and other social history from Department [facility] and [facility] facilities. Social History Type Response Date Comment Sourc e Sex Representation Male 11/17/2022 Unknow n Organization Sexual Orientation Ambula tory Pharmacy Gender identity Ambulator y Pharmacy Assessment and Plan Combined list of future care activities from [facility] and [facility] facilities (e.g., assessment and plan notes, appointments, [...] Heart:?Normal Comments: ANNUAL PERIODIC HEALTH ASSESSMENT I. STAND IN INFORMATION AND DEMOGRAPHICS (SMI) 1. Last Name: JOEY 2. First Name: KORTNEY 3. Middle Name: LEXIE 4. Assessment Date: 5. : 6. Age: 49 7. Gender: M 8. DoD ID Number: [id number] 9. Service Branch: [employer] 10. 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 Unit Name: [address] 14. Duty Station/Location: [place] 15. [facility]: [id number] 16. Is this your first Periodic Health Assessment (PHA)?: N 17. Are you enrolled in a secure messaging system with your health care provider?: 18. Current contact information: Preferred Method: Email 1 DSN: Day Time Phone: [phone] Night Time Phone: [phone] Email 1: [email or web address] Email 2: [email or web address] Address: [address] [place] [address]: [facility]: [place] Zip Code: [id number] 19. Point of contact who can always reach you: Name: Yajaira Cook Phone 1: [phone] Phone 2: [email or web address] EMAIL: Address: [address] [place] [address]: [facility]: [place] Zip Code: [address] II. DEPLOYMENT INFORMATION (DEP) 1. [ 0 [...] easily startled? 6. d. [ No ] [place] numb or detached from others, activities, or your surroundings? 6. e. [ Not answered ] [place] guilt or unable to stop blaming yourself [...] like to schedule a visit with a floor covering installer, mental health care provider, or a community [...] 8. [ None ] What prescriptions or pomx-phf-prmtomp medications are you CURRENTLY taking for health problems on a ROUTINE BASIS? 9. Which of the following products have you taken since your last PHA: Multi-Vitamins: Once a day Easton-3 Supplements: Once a day Vitamin D: Less [...] had a cholesterol check by a health care transport nurse within the PAST 5 YEARS? 13.a. In [...] the next year from Active Duty or [place] Duty (activated for greater than 30 continuous days) OR do you intend to file a claim for disability compensation with the Veterans Benefits Administration? PART B. RECORD REVIEW AND RECOMMENDATIONS I. RECORD REVIEWER INFORMATION 1. Last Name: ADAMS 2. First Name: CYNDI 3. Middle Name: 4. Service Branch: [employer] 5. 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 EMAIL: [email or web address]] 8. Facility: [facility] 9. Unit: [facility] 10. Address: [address] [place] [address] 11. State: [place] 12. Zip Code: [address] 13. 14. Date Record Review: II. MEDICAL SCREENING 1. 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 [ 6 feet 0 inches Date: ] sales team member's most recently documented height 3. [ 264 pounds Date: ] sales team member's most recently documented weight 4. [ 131/85 Date: ] sales team member's most recently documented blood pressure reading 5. [ No ] Does the sales team member have a history of abnormal blood pressure since their last PHA? 6. [ Yes ] Does the sales team member have a laboratory test of sickle cell trait documented in their permanent medical record? 7. [ No Cholesterol Test Documented ] What is the date of the sales team member's most recently documented cholesterol test? 8. [ No Colon Cancer Screening Documented ] What is the date of the sales team member's most recently documented colon cancer screening? 9. [ Atorvastatin 20mg Cosentyx Pen 300mg/2Ml sildenafil citrate (DISCONTINUE) DESONIDE (DISCONTINUE) ] List of sales team member's active medications listed in their permanent medical record 10. [ No ] Is there a discrepancy between the active medication record review and the sales team member's self-reported list of medications? 11. [ F/u psoriasis ] List documented significant care the sales team member has received since their last PHA from a provider OUTSIDE the Health System 12. [ No ] Is there a discrepancy between the sales team member's list of OUTSIDE care (from OT5), and the OUTSIDE care found in the record? 13. [ No Inside Care Documented ] List documented significant care the sales team member has received since their last PHA from a provider INSIDE the Health System 15. [ Not Answered ] Confirm that vaccine exemptions are listed in the medical record for each vaccine listed III. OCCUPATION-SPECIFIC EXAMINATIONS 2. [ ] When was the sales team member's most recently documented evaluation? IV. FAMILY HISTORY AND LIFESTYLE 1. [ Yes ] Does the HF1620 reflect the sales team member's reported family history? VII. INDIVIDUAL MEDICAL READINESS 1. [ Yes ] Does the sales team member have an Assignment Limitation Code C? 3. [ Classification: 1 ] Most recently documented dental exam 4. [ Yes ] Is the sales team member current on all required immunizations in the immunization tracking system? 5. [ No, sales team member needs: gas mask inserts ] Is the sales team member current with Service-specific requirements for glasses and gas mask inserts? 6. Does the sales team member have the following laboratory tests documented in [...] need to be forwarded to the Health Health Records Technology Teacher completing PART C: Under tx for psoriasis. JLV reviewed. No significant findings. Date Record Review Completed: PART C. HEALTH CARE PROVIDER I. MENTAL HEALTH ASSESSMENT (MHA) PROVIDER INFORMATION 1. Last Name: HENNY 2. First Name: HENRY 3. Middle Name: 4. Service Branch: [employer] 5. 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 EMAIL: [email or web address] 8. Facility: [facility] 9. Unit: [facility] 10. Address: [address] [place], [place] [address] 11. State: [place] 12. Zip Code: [address] 13. Phone: [phone] 14. Date HCP Review initiated: 1. Member [...] HENRY 3. Middle Name: 4. Service Branch: [employer] 5. 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 EMAIL: [email or web address]] 8. Facility: [address] [place], [place] [address] 9. Unit: [address] [place], [place] [address] 10. Address: [address] [place] [address] 11. State: [place] 12. Zip Code: [address] 13. Phone: [phone] 14. Date HCP Review initiated: IV. PERIODIC HEALTH ASSESSMENT PROVIDER RECOMMENDATIONS and REFERRALS 1. Provider concerns with this assessment: No issues or concerns identified V. SUMMARY AND COMMENTS 1. Additional information summarizing findings during the sales team member assessment: 2. Provider Comments: Doing well. Only [...] your review of all documentation, is the sales team member medically deployable without limitations? Reference Misty 6490.07 Yes (sales team member DOES NOT currently have a medical condition that limits deployability) Date PHA Completed: END OF [id number] REPORT Impression:Meets?medical standards per ERIC 48-123/MSD. Disposition:?No AF469 changes based on this encounter.Member is mobility restricted/C-coded.C2 Extracted from:Title: AUof PHA predoc vitals Author: LOREN TRINH Date: 12/28/23 ?Vitals: Blood Pressure:???131/85 Heart Rate: 65 Height: 72 Weight:265 BMI: Medications: None Chronic Problems: ?Psoriasis SF 507: _ Comments: Addendum by KORTNEY RODRIGUES on December 28, 2023 14:42 EST History [...] C -2 ANNUAL PERIODIC HEALTH ASSESSMENT I. STAND IN INFORMATION AND DEMOGRAPHICS (SMI) 1. Last Name: COOK 2. First Name: KORTNEY 3. Middle Name: LEXIE 4. Assessment Date: 5. : 6. Age: 48 7. Gender: M 8. DoD ID Number: [id number] 9. Service Branch: [employer] 10. 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 Unit Name: [address] 14. Duty Station/Location: [place] 15. [employer]: [id number] 16. Is this your first Periodic Health Assessment (PHA)?: N 17. Are you enrolled in a secure messaging system with your health care provider?: U 18. Current contact information: Preferred Method: Day Time Phone DSN: Day Time Phone: [phone] Night Time Phone: [phone] Email 1: [email or web address] Email 2: Address: [address] [place] [address]: [facility]: [place] Zip Code: [phone] 19. Point of contact who can always reach you: Name: Yajaira Cook Phone 1: [phone] Phone 2: EMAIL: Address: [address] [place] [address]: [facility]: [place] Zip Code: [address] II. DEPLOYMENT INFORMATION (DEP) 1. [ 0 [...] easily startled? 6. d. [ No ] [place] numb or detached from others, activities, or your surroundings? 6. e. [ Not answered ] [place] guilt or unable to stop blaming yourself [...] like to schedule a visit with a floor covering installer, mental health care provider, or a community [...] 8. [ None ] What prescriptions or gvbx-hte-rtuqjsq medications are you CURRENTLY taking for health problems on a ROUTINE BASIS? 9. Which of the following products have you taken since your last PHA: Multi-Vitamins: Once a day Individual Vitamins or Minerals: Once a day Easton-3 Supplements: Once a day Vitamin D: Less [...] had a cholesterol check by a health care transport nurse within the PAST 5 YEARS? 13.a. In [...] the next year from Active Duty or [place] Duty (activated for greater than 30 continuous days) OR do you intend to file a claim for disability compensation with the Veterans Benefits Administration? PART B. RECORD REVIEW AND RECOMMENDATIONS I. RECORD REVIEWER INFORMATION 1. Last Name: ANA LILIA 2. First Name: DANIELA 3. Middle Name: Lety 4. Service Branch: [employer] 5. 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 EMAIL: [email or web address] 8. Facility: [facility] 9. Unit: [facility] 10. Address: [address] [place] [address] 11. State: [place] 12. Zip Code: [address] 13. 14. Date Record Review: II. MEDICAL SCREENING 1. 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 [ 5 feet 11 inches Date: ] sales team member's most recently documented height 3. [ 256 pounds Date: ] sales team member's most recently documented weight 4. [ 121/79 Date: ] sales team member's most recently documented blood pressure reading 5. [ No ] Does the sales team member have a history of abnormal blood pressure since their last PHA? 6. [ Yes ] Does the sales team member have a laboratory test of sickle cell trait documented in their permanent medical record? 7. [ No Cholesterol Test Documented ] What is the date of the sales team member's most recently documented cholesterol test? 8. [ No Colon Cancer Screening Documented ] What is the date of the sales team member's most recently documented colon cancer screening? 9. [ sildenafil citrate DESONIDE ] List of sales team member's active medications listed in their permanent medical record 10. [ Yes: sildenafil citrate DESONIDE ] Is there a discrepancy between the active medication record review and the sales team member's self-reported list of medications? 11. [ seen for left corneal abrasion 03/2023 seen for strain of L Achilles tendon 12/2022 Seen for thyrotoxicosis and nontoxic multinodular goiter 07/2023 ] List documented significant care the sales team member has received since their last PHA from a provider OUTSIDE the Health System 12. [ Yes: seen for left corneal abrasion 03/2023 seen for strain of L Achilles tendon 12/2022 Seen for thyrotoxicosis and nontoxic multinodular goiter 07/2023 ] Is there a discrepancy between the sales team member's list of OUTSIDE care (from OT5), and the OUTSIDE care found in the record? 13. [ No Inside Care Documented ] List documented significant care the sales team member has received since their last PHA from a provider INSIDE the Health System 15. [ Not Answered ] Confirm that vaccine exemptions are listed in the medical record for each vaccine listed III. OCCUPATION-SPECIFIC EXAMINATIONS 2. [ ] When was the sales team member's most recently documented evaluation? IV. FAMILY HISTORY AND LIFESTYLE 1. [ Yes ] Does the [id number] reflect the sales team member's reported family history? VII. INDIVIDUAL MEDICAL READINESS 1. [ Yes ] Does the sales team member have an Assignment Limitation Code C? 3. [ Classification: 1 ] Most recently documented dental exam 4. [ No: Influenza, [place] ] Is the sales team member current on all required immunizations in the immunization tracking system? 6. Does the sales team member have the following laboratory tests documented in [...] need to be forwarded to the Health Health Records Technology Teacher completing PART C: C2 for psoriasis. being [...] JUNIOR 3. Middle Name: 4. Service Branch: [employer] 5. 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 EMAIL: [email or web address] 8. Facility: [address] [place], [place] [address] 9. Unit: 9 [facility] 10. Address: [address] [place] [address] 11. State: [place]. Zip Code: [address] 13. 14. Date HCP Review initiated: 1. [...] JUNIOR 3. Middle Name: 4. Service Branch: [employer] 5. 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 EMAIL: [email or web address]..[email or web address] 8. Facility: [address] [place] [address] 9. Unit: [address] [place] [address] 10. Address: [address] [place] [address] 11. State: [place]. Zip Code: [address] 13. 14. Date HCP Review initiated: IV. PERIODIC HEALTH ASSESSMENT PROVIDER RECOMMENDATIONS and REFERRALS 1. Provider concerns with this assessment: No issues or concerns identified V. SUMMARY AND COMMENTS 1. Additional information summarizing findings during the sales team member assessment: 2. Provider Comments: . INDIVIDUAL MEDICAL READINESS DISPOSITION DETERMINATION LUCILLE: Ready DEN: Ready IMM: Ready LAB: Ready ME: Ready IMR Status: Fully Medically Ready VII. SERVICE MEDICAL DEPLOYABILITY EVALUATION INDICATED Based on your review of all documentation, is the sales team member medically deployable without limitations? Reference Misty 6490.07 Yes (sales team member DOES NOT currently have a medical condition that limits deployability) Date PHA Completed: END OF [id number] REPORT Impression:_?medical standards per ERIC 48-123/MSD. Disposition:?No AF469 changes based on this encounter.[employer]. 01/16/2025 [id number] AMDS Functional Status Combined list of recent functional and cognitive assessments recorded at Department of Defense and Veterans Affairs (VA).VA Functional [place] Measurement (FIM) Scale: 1 = Total Assistance (Subject = 0% +), 2 = Maximal Assistance (Subject = 25% +), 3 = Moderate Assistance (Subject = 50% +), 4 = Minimal Assistance (Subject = 75% +), 5 = Supervision, 6 = Modified [place] (Device), 7 = Complete [place] (Timely, Safely). Assessment Date/Time Source Assessment Type Assessment Skill Assessment Score Assessment Details No data available for this section
--- OUTSIDE RECORDS SUMMARY | 2025-01-16 16:40 | XMS_ITS | Continuity of Care Document ---
Author Organization [facility] Address [address] [place] [address] Phone [phone] Care Team Providers Care Gunstock Spray Unit Feeder Name Role Phone Issac Lee Care Team Information Water Quality Control Engineer [phone] Problems Active Problems Provider Date Hyperlipidemia Vicente [...] Smoking Status Reviewed: 06/23/23 Never Smoked Cigaret adrian ETOH Use Never used alcohol Allergies and adverse reactions Description No Known Drug Allergies Medications Active Medications SIG Qnty Indications Ordering Provider Date Atorvastatin [id number] Tablets Take 1 Tablet By Mouth AT Bedtime For 90 Days Issac Lee Sildenafil [id number] Tablets Please See Attached For Detailed Directions Carlos Bowie Cosentyx Cltlexur304wf/2ML Solution Auto-Inject One injection every 4 weeks Reinaldo Ortiz MD Vital Signs Date Vital Result Comment 06/20/2024 8:57am BP Systolic 130 mmHg BP Diastolic 90 mmHg Heart Rate 72 /min Height 72 inches 6'0 Weight 259.50 lb BMI (Body Mass Index) 35.2 kg/m2 Results Test Acquired Date Facility Test Result H/L Range N ote TSH RFX On Abnormal To Free T4 06/21/2024 [facility] TSH RFX On Abnormal To Free T4 <pending> TSH Rfx on Abnormal to Free T4 06/20/2024 [facility] TSH Rfx on Abnormal to Free T4 0.504 uIU/mL 0.450-4.5 00 TSH With Reflex To FT4 11/20/2023 [facility] TSH With Reflex To FT4 0.91 uIU/mL (0.4-4.2) TSH With Reflex To FT4 07/18/2023 [facility] Lab TSH With Reflex To FT4 1.09 uIU/mL (0.4-4.2) 1 Thyrotropin Receptor AB 07/18/2023 [facility] Thyrotropin Receptor AB <1.10 2 TSH With Reflex To FT4 06/27/2023 [facility] TSH With Reflex To FT4 <pending> TSH 06/23/2023 [facility] TSH 0.67 uIU/mL (0.4-4.2) Free T3 06/23/2023 [facility] Free T3 3.4 pg/mL (2.3-5.0) Free T4 06/23/2023 [facility] Free T4 1.02 ng/dL (0.70-1.8 0) Anti Thyroid Peroxidase AB 06/23/2023 [facility] Anti Thyroid Peroxidase AB 9.7 IU/mL (<34) 3 1 Duplicate order canc elled via interface 2 Reference range: 0.0 0 to 1.75 Unit: IU/L Test performed at [address] [address] 3 Effective 06/20/2023 method will change from Serology (Barnett Property Portfolio Officer to Chemistry (Celestine E801). Anti-Thyroid Peroxidase [...]
--- OUTSIDE RECORDS SUMMARY | 2025-01-16 16:40 | XMS_ITS | Clinical Summary ---
Author Organization [employer] [facility] ity Address [address] [place] [address] Care Team Providers Care Public Relations Coordinator Name Role Phone Unavailable Primary Care Provider [...]
== END 2025-01-16 11:21 | disposition home or self-care (01) ==
LOC: HO.LNP 11:20
PROVIDERS: PCP Nurse Practitioner Family; Visit Provider Nurse Practitioner Family
DX: B34.9 Viral infection, unspecified (principal)
CPT/HCPCS: 87633; 96127; 99212

== ENCOUNTER 2025-01-16 11:20 | Outpatient (AMB) | payer OTHER, SELFPAY ==
[2025-01-16 11:23] VITALS: BP 130/82; PULSE 110; TEMP 37.7; O2SAT 98; BMI 35.5
--- NOTE | 2025-01-16 11:23 | MHC.PC.OV ---
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 Accompanied by: Self / Same As Patient Allergies No Known Allergies Allergy (Verified 01/16/25 11:23) Medication List - Last Reconciled 01/16/25 by CORY Gonzalez-BENITO atorvastatin 20 mg PO BEDTIME 90 days clobetasol 0.05% topical naproxen mg PO omeprazole 20 mg PO DAILY 30 days secukinumab (Cosentyx UnoReady Pen) mg subcut sildenafil 100 mg PO DAILY PRN 30 days Tobacco use date assessed: 01/16/25 Dental Screening Dental Screen Date: 01/16/25 Did you have a dental visit in the last 12 months?: Yes Did you have a dental problem in the last 6 months where you did not have access to dental care?: No Was dental information given to patient?: Patient has dentist HPI 6M F/U HPI Details Chief Complaint The patient reports chills, cough, congestion, and fatigue. History of Present Illness The patient is a 49-year-old male presenting with symptoms consistent with a viral illness. The patient reports chills coupled with a cough and nasal congestion persisting for two days. He denies lymphadenopathy, shortness of breath, and chest pain. Alongside these symptoms, he reports experiencing mild fatigue. The condition has remained unchanged since its onset. There is no report of exposure to contagious individuals, and he has not noticed any other significant changes in his health. Social History Health Maintenance Review of Systems - General: Reports chills and fatigue. - Respiratory: Reports cough and congestion. Denies shortness of breath or chest pain. - Lymphatic: Denies lymphadenopathy. Physical Exam General: Cooperative, healthy appearing, comfortable, no acute distress and well developed Orientation: Patient oriented x3 Limitations: No limitations Head: Normal to inspection neck: no lymphadenopathy, tonsils were not swollen Ears: Hearing grossly normal bilaterally Nose: Normal external nose present Face and sinus: Normal facial exam Eyes: Appearance normal, both eyes and all related structures Neck: Normal visual inspection and Yes full ROM Respiratory: clear with very faint rhonchi Cardiovascular: Regular rate and rhythm. Normal S1 and S2 GI: Normal to inspection. Soft to palpation and nontender Skin: No rashes or lesions noted Neuro: Patient oriented x3 Extremities: Normal to inspection Results Plan A respiratory swab will be conducted to confirm the suspected viral illness. The patient is advised to use kdld-ujy-zhvtvst treatments to alleviate symptoms and to rest until Monday. Increased fluid intake is emphasized. Instructed to visit the emergency room if symptoms worsen. Discussion Notes I discussed with the patient the probable viral nature of his symptoms and the utility of conducting a respiratory swab for further confirmation. Management focuses on symptomatic relief through wksl-wou-apvzajq medication and ensuring rest with adequate fluid intake. I explained that taking time off work until Monday will aid recovery. I have advised that any exacerbation of symptoms warrants immediate evaluation at the emergency room, outlining the potential warning signs to monitor during recovery. Patient Instructions - Use jhsv-zrn-nisjvfz medications to relieve symptoms. - Stay home and rest until Monday. - Increase fluid intake to stay hydrated. - Monitor symptoms closely. - Go to the emergency room if symptoms worsen, such as shortness of breath or persistent fever. [facility] Medical History Subclinical hyperthyroidism Multinodular goiter Tubular adenoma Dyslipidemia Hypertension Psoriasis Surgical History Hx of colonoscopy Hx of foot surgery History of tooth extraction Family History Father HTN (hypertension) Unknown family medical history Mother HTN (hypertension) Sister No problems noted. Social History Housing: Condominium Alcohol intake: never Patient Tobacco Use Status: Never used Tobacco e-Cigarette/Vaping Use: Never Used Second Hand Smoke Exposure: No service: Yes Current occupational exposures/hazards: No Cognitive needs: No Hearing needs: No Vision needs: No Questionnaire PHQ-9 Over the last 2 weeks, how often have you been bothered by any of the following problems? 1. Little interest or pleasure in doing things: not at all 2. Feeling down, depressed, or hopeless: not at all 3. Trouble falling or staying asleep, or sleeping too much: not at all 4. Feeling tired or having little energy: several days 5. Poor appetite or overeating: not at all 6. Feeling bad about yourself - or that you are a failure or have let yourself or your family down: not at all 7. Trouble concentrating on things, such as reading the newspaper or watching television: not at all 8. Moving or speaking so slowly that other people could have noticed. Or the opposite - being so fidgety or restless that you have been moving around a lot more than usual: not at all 9. Thoughts that you would be better off or of hurting yourself in some way: not at all Total score: 1 Depression Screening Interpretation: Negative Depression Screening Done: Yes 97938 - PHQ-9 Billing: Yes Source: Developed by Drs. Juan A Taylor, Radha Joy, Antoni Prakash and colleagues, with an educational martinez from [employer]. Thrive Questionnaire Date Thrive assessed: 01/16/25 I am a: Patient What is your living situation today?: I have a steady place to live Within the past 12 months, did the food you bought not last and you didn't have the money to get more?: Often true Within the past 12 months, did you worry whether your food would run out before you got money to buy more?: Often true Do you have trouble paying for medicines?: No Do you have trouble getting transportation to medical appointments?: No Do you have trouble paying your heating and electricity bill?: No Do you have trouble taking care of your child, family member or friend?: No Do you have trouble with day-to-day activities such as bathing, preparing meals, shopping, managing finances, etc.?: No Are you currently unemployed and looking for a job?: No Are you interested in more education?: Yes Please select the resources that you would like help with: None Currently or been in a relationship where the following occur: No concerns reported THRIVE Score: 2 AUDIT C Alcohol Use Questionnaire (AUDIT-C) 1. How often do you have a drink containing alcohol?: Never 3. How often do you have six or more drinks on one occasion?: Never Total Score: 0 Score Reviewed/Action Taken: Yes SATINDER-7 AMB Questionnaire SATINDER-7 Date SATINDER - 7 assessed: 01/16/25 Feeling nervous, anxious, or on edge: 0 = Not at all Not being able to stop or control worryin = Not at all Worrying too much about different things: 0 = Not at all Trouble relaxin = Not at all Being so restless that it is hard to sit still: 0 = Not at all Becoming easily annoyed or irritable: 0 = Not at all Feeling afraid as if something awful might happen: 0 = Not at all Total SATINDER-7 score (0-4 normal; 5-9 mild; 10-14 moderate; 15-21 severe): 0 Source: Developed by Drs. Juan A Taylor, Radha Joy, Antoni Prakash and colleagues, with an educational martinez from [employer]. SATINDER-7 Assessment Billing SATINDER-7 Assessment Tool: SATINDER-7 Assessment 26764 Physical exam (Primary Care) Vital Signs: Last Vital Signs Temp 99.8 F 01/16/25 11:23 Pulse 110 H 01/16/25 11:23 BP 130/82 01/16/25 11:23 Pulse Ox 98 01/16/25 11:23 BMI result Body Mass Index 35.5 Tobacco/Smoking Status: Tobacco use Status Tobacco use date assessed 01/16/25 01/16/25 11:26 Patient Tobacco Use Status Never used Tobacco 01/16/25 11:26 e-Cigarette/Vaping Use Never Used 01/16/25 11:26 PHQ-9: PHQ-9 Score PHQ-9: Total score 1 01/16/25 11:26 Depression Screening Interpretation: Negative Thrive Assessment: Date of Thrive Assessment Date Thrive assessed 01/16/25 01/16/25 11:26 Currently or been in a relationship where the following occur: No concerns reported Coding Level of Care Code Est Pt Level 3 (01263) Diagnoses Viral illness B34.9 Additional Codes SATINDER-7 Assessment Billing - SATINDER-7 Assessment Tool: SATINDER-7 Assessment 18133 ([id number]) PHQ-9 - 31671 - PHQ-9 Billing: Yes ([id number]) Assessment & Plan Assessment & Plan (1) Viral illness: Code(s): B34.9 - Viral infection, unspecified Category: Medical Plan . Orders: Orders Resp Pathogen Panel - C Today B34.9 - Viral infection, unspecified Complete Blood Count Auto Diff Today B34.9 - Viral infection, unspecified Comprehensive Rosanky. Panel Fast Today B34.9 - Viral infection, unspecified TSH reflex Free T4 Today B34.9 - Viral infection, unspecified Lipid Panel Today B34.9 - Viral infection, unspecified UA CC w/rflx Micro + Cult Today B34.9 - Viral infection, unspecified
--- OUTSIDE RECORDS SUMMARY | 2025-01-16 14:41 | XMS_ITS | Patient Health Record ---
[facility] [place] Address [address] [place] [address] Care Team Providers Care Childcare Aide Name Role Phone Issac Douglas Primary Care Provider Unav ailable Florencia Mancilla Unavailable [phone] Allergies No Known Allergies Reason For Referral Diagnosis 1 Pain in unspecified foot (M79.673) Referring Provider First Name Issac Referring Provider Last Name Rosa [facility] [place] Referred Provider Florencia Mancilla Referred Address [address] ,[place], [place],[address], Referred Provider Specialty Podiatry Referral Priority Routine Medications Medication SIG (Take, Route, Frequency, Duration) Notes Start Date End Date Status Atorvastatin Calcium 20 MG 1 tablet Orally Once a day Active Sildenafil Citrate 100 MG 1 tablet as ne eded Orally Once a day Active Naproxen 500 MG 1 tablet Orally WITH FOOD Twice a day for 30 days 11/29/2024 Active Cosentyx 150 MG/ML 1 mL Subcutaneous Active Social History Tobacco Use: Social History Observation Description Date Details (start date - stop date) Never Smoker NA - NA Tobacco use other than smoking: Question Answer Notes Are you an other tobacco user? No Tobacco Control (Standard) Question Answer Notes Tobacco use: Nonsmoker AUDIT-C (Standard) Question Answer Notes Did you have a drink containing alcohol in the p ast year? No Points 0 Interpretation Negative Problems Problem Type SNOMED Code ICD Code Onset Dates Problem Status W/U Status Risk Notes Problem [id number] Plantar fascial fibromatosis (M72.2) Active confirmed Vital Signs Blood pressure diastolic 80 mm Hg 11/29/2024 Height 6ft in 11/29/2024 Blood pressure systolic 120 mm Hg 11/29/2024 Weight 265 lbs 11/29/2024 BMI 35.94 kg/m2 11/29/2024 Encounters Encounter Location Date Provider Diagnosis [address] [phone] 11/29/2024 Florencia Mancilla Pain in left foot M79.672 ; Posterior tibial tendinitis of left lower extremity M76.822 ; Flat foot [pes planus] (acquired), left foot M21.42 and Plantar fascial fibromatosis M72.[address] [phone] 08/13/2024 Florencia Mancilla [facility] [phone] 11/29/2024 Florencia Mancilla [address] [address] 12/24/2024 Florencia Mancilla Assessments Encounter Date Diagnosis (ICD Code) Assessment Notes Treatment Notes Treatment Clinical Notes Section Notes 11/29/2024 Pain in left foot (ICD-10 - M79.672) 11/29/2024 Posterior tibial tendinitis of left lower extremity (ICD-10 - M76.822) 11/29/2024 Flat foot [pes planus] (acquired), left foot (ICD-10 - M21.42) 11/29/2024 Plantar fascial fibromatosis (ICD-10 - M72.2) Plan Of Treatment Next Appt Details Provider Name:Florencia dixon, 01/30/2025 03:15:00 PM, [address] [place], [address], Insurance Providers Payer Name Payer Address Payer Phone Subscriber Number Group Number Insured Name Patient Relationship to Insured Coverage Start Date Coverage End Date [facility] [address] [place] [address] [id number] Rafy Mckeon Self - patient is the insured 1 Medical (General) History Medical History History ICD Code Joint implants/screws Surgical History Surgery Date(Month/Year) tibial tendonitis 2016 colonoscopy
--- OUTSIDE RECORDS SUMMARY | 2025-01-16 14:41 | XMS_ITS | Continuity of Care Document ---
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 Onset: 0 06/23/2023 Essential hypertension Vicente Jaeger M.D. O nset: 06/23/2023 Psoriasis Vicente Jaeger M.D. Onset: 0 06/23/2023 Tubular adenoma Vicente Jaeger M.D. Onset: 0 06/23/2023 Subclinical hyperthyroidism Davy Agustin Onset: 06/23/2023 Multinodular goiter Vicente Jaeger M.D. Onse t: 11/20/2023 Social History Type Date Description Comments Sex Unknown Tobacco Use Start: Unknown Never Smoked Cigarettes Smoking Status Reviewed: 06/23/23 Never Smoked Cigaret adrain ETOH Use Never used alcohol Allergies and adverse reactions Description No Known Drug Allergies Medications Active Medications SIG Qnty Indications Ordering Provider Date Atorvastatin [id number] Tablets Take 1 Tablet By Mouth AT Bedtime For 90 Days Issac Lee Sildenafil [id number] Tablets Please See Attached For Detailed Directions Carlos Bowie Cosentyx [id number] Solution Auto-Inject One injection every 4 weeks Reinaldo Ortiz MD Vital Signs Date Vital Result Comment 06/20/2024 8:57am BP Systolic 130 mmHg BP Diastolic 90 mmHg Heart Rate 72 /min Height 72 inches 6'0 Weight 259.50 lb BMI (Body Mass Index) 35.2 kg/m2 Results Test Acquired Date Facility Test Result H/L Range N ote TSH RFX On Abnormal To Free T4 06/21/2024 [facility] TSH RFX On Abnormal To Free T4 <pending> TSH Rfx on Abnormal to Free T4 06/20/2024 [facility] TSH Rfx on Abnormal to Free T4 0.504 uIU/mL 0.450-4.5 00 TSH With Reflex To FT4 11/20/2023 [facility] TSH With Reflex To FT4 0.91 uIU/mL (0.4-4.2) TSH With Reflex To FT4 07/18/2023 [facility] TSH With Reflex To FT4 1.09 uIU/mL (0.4-4.2) 1 Thyrotropin Receptor AB 07/18/2023 [facility] Thyrotropin Receptor AB <1.10 2 TSH With Reflex To FT4 06/27/2023 [facility] TSH With Reflex To FT4 <pending> TSH 06/23/2023 [facility] TSH 0.67 uIU/mL (0.4-4.2) Free T3 06/23/2023 [facility] Free T3 3.4 pg/mL (2.3-5.0) Free T4 06/23/2023 [facility] Free T4 1.02 ng/dL (0.70-1.8 0) Anti Thyroid Peroxidase AB 06/23/2023 [facility] Anti Thyroid Peroxidase AB 9.7 IU/mL (<34) 3 1 Duplicate order canc elled via interface 2 Reference range: 0.0 0 to 1.75 Unit: IU/L Test performed at [address] [address] Effective 06/20/2023 method will change from Serology ([employer] to Chemistry ([employer] E801). Anti-Thyroid Peroxidase reference range is currently <5.6 and is changing to <34. The measurement unit remains the same IU/mL. The results are assay dependent and cannot be interchangeable with other assays. The antibody assay is being performed using the electrochemiluminescence immunoassay on the [employer] Shelly immunoassay analyzer. A correlation with clinical presentation is recommended while interpreting the results. Medical Devices Description No Information Available Encounters Type Date Location Provider Dx Diagnosis Office Visit 06/20/2024 9:00a Main Office Vicente Jaeger M.D. 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 06/20/2024 E05.90 Subclinical hyperthyroidism Vicente Jaeger M.D. Plan of Treatment Future Appointment(s):* 06/23/2025 9:00 am - Vicente Jaeger M.D. at Main Office 11/20/2023 - Vicente Jaeger M.D.* E04.2 Multinodular goiter * E05.90 Subclinical hyperthyroidism Functional Status Description No Information Available Mental Status Description No Information Available Referrals Description No Information Available
--- OUTSIDE RECORDS SUMMARY | 2025-01-16 14:41 | XMS_ITS | Continuity of Care Document ---
Author Name [facility] Organization [facility] Care Team Providers Care Candy Waffle Assembler Name Role Phone [facility] Unavailable Unavailable Immunizations Combined list of available immunizations from the Department of Defense and Veterans Affairs facilities. Immunization Series Date Given Administered By Site Reaction Lot Number CVX Code Drug Hides Soaker Status Comments Source tetanus, diphtheria, acellular pertu is 2021 [id number] sanofi pasteur complet ed tetanus, diphtheri a, acellular pertussis 09/27/22 Given Ambulat ory Pharmac y COVID Vaccine Moderna 2020 [id number] complet ed COVID Vaccine Moderna 08/24/21 Given Ambulat ory Pharmac y COVID Vaccine Moderna 2020 [id number] complet ed COVID Vaccine Moderna 07/27/21 Given Ambulat ory Pharmac y influenza virus vaccine, unspecified 2017 [id number] 88 complet ed influenza virus vaccine, unspecifi ed 08/30/18 Given Ambulat ory Pharmac y influenza, seasonal, injectable-pf 2016 [id number] 140 Seqirus complet ed influenza , seasonal, injectabl e-pf 10/08/17 Given Ambulat ory Pharmac y influenza, injectable, quadrivalent- pf 2015 150 GlaxoSmithKli ne complet ed influenza , injectabl e, quadrival ent-pf 09/13/16 Given Ambulat ory Pharmac y influenza, injectable, quadrivalent- pf 2014 150 sanofi pasteur complet ed influenza , injectabl e, quadrival ent-pf 08/25/15 Given Ambulat ory Pharmac y influenza, seasonal, injectable 2013 [id number] CSL Behring complet ed influenza , seasonal, injectabl e 08/05/14 Given Ambulat ory Pharmac y influenza, seasonal, injectable 2012 141 complet ed influenza , seasonal, injectabl e 08/03/13 Given Ambulat ory Pharmac y tetanus, diphtheria, acellular pertu is 2011 [id number] 115 sanofi pasteur complet ed tetanus, diphtheri a, acellular pertussis 08/19/12 Given Ambulat ory Pharmac y influenza, seasonal, injectable-pf 2011 [id number] 140 CSL Behring complet ed influenza , seasonal, injectabl e-pf 08/19/12 Given Ambulat ory Pharmac y influenza, seasonal, injectable 2011 141 sanofi pasteur complet ed influenza , seasonal, injectabl e 07/31/12 Given Ambulat ory Pharmac y influenza, seasonal, injectable-pf 2010 [id number] 140 Novartis Pharmaceutica ls complet ed influenza , seasonal, injectabl e-pf 09/14/11 Given Ambulat ory Pharmac y influenza, seasonal, injectable 2010 141 Novartis Pharmaceutica ls complet ed influenza , seasonal, injectabl e 09/14/11 Given Ambulat ory Pharmac y influenza virus vaccine, live 2009 [id number] 111 Medimmmotify Inc comple t ed influenza virus vaccine, live 09/11/10 Given Ambulat ory Pharmac y Novel influenza-H1N 1-09, injectable 2009 [id number] 127 Novartis Pharmaceutica ls complet ed Novel influenza -X5I7-31, injectabl e 12/04/09 Given Ambulat ory Pharmac y influenza virus vaccine, live 2008 [id number] 111 Medimmune Inc comple t ed influenza virus vaccine, live 08/11/09 Given Ambulat ory Pharmac y typhoid Vi capsular polysaccharid e vac 2007 [id number] 101 sanofi pasteur complet ed typhoid Vi capsular polysacch aride vac 09/09/08 Given Ambulat ory Pharmac y influenza virus vaccine,split 2007 [id number] 15 GlaxoSmithKli ne complet ed influenza virus vaccine,s plit 09/09/08 Given Ambulat ory Pharmac y influenza virus vaccine,split 2006 [id number] 15 GlaxoSmithKli ne complet ed influenza virus vaccine,s plit 09/20/07 Given Ambulat ory Pharmac y typhoid vaccine, parenteral 2005 [id number] sanofi pasteur complet ed typhoid vaccine, parentera l 10/24/06 Given Ambulat ory Pharmac y influenza virus vaccine,split 2005 [id number] 15 Unknown complet ed influenza virus vaccine,s plit 10/24/06 Given Ambulat ory Pharmac y influenza virus vaccine,split 2004 [id number] 15 sanofi pasteur complet ed influenza virus vaccine,s plit 10/07/05 Given Ambulat ory Pharmac y hepatitis B adult vaccine 2004 [id number] 43 Merck & Company Inc complet ed hepatitis B adult vaccine 01/01/05 Given Ambulat ory Pharmac y measles/mumps /rubella virus vaccine 2004 [id number] 03 Merck & Company Inc complet ed measles/m umps/rube lla virus vaccine 12/24/04 Given Ambulat ory Pharmac y poliovirus vaccine, inactivated 2004 [id number] 10 sanofi pasteur complet ed polioviru s vaccine, inactivat ed 12/24/04 Given Ambulat ory Pharmac y influenza virus vaccine, live 2004 [id number] 111 KiteDesk Inc comple t ed influenza virus vaccine, live 12/11/04 Given Ambulat ory Pharmac y typhoid vaccine, parenteral 2003 [id number] 41 sanofi pasteur complet ed typhoid vaccine, parentera l 08/08/04 Given Ambulat ory Pharmac y hepatitis A adult vaccine 2003 [id number] 52 Merck & Company Inc complet ed hepatitis A adult vaccine 08/08/04 Given Ambulat ory Pharmac y hepatitis B adult vaccine 2003 [id number] 43 GlaxoSmithKli ne complet ed hepatitis B adult vaccine 08/08/04 Given Ambulat ory Pharmac y typhoid vaccine, parenteral 2003 [id number] 41 sanofi pasteur complet ed typhoid vaccine, parentera l 08/07/04 Given Ambulat ory Pharmac y hepatitis B adult vaccine 2003 [id number] 43 GlaxoSmithKli ne complet ed hepatitis B adult vaccine 02/07/04 Given Ambulat ory Pharmac y tetanus-dipht h toxoids (Td) adult/adol 2003 [id number] 09 sanofi pasteur complet ed tetanus-d iphth toxoids (Td) adult/ado l 02/07/04 Given Ambulat ory Pharmac y hepatitis A adult vaccine 2003 [id number] 52 Merck & Company Inc complet ed hepatitis A adult vaccine 02/07/04 Given Ambulat ory Pharmac y tuberculin purified protein derivative 2003 [id number] 96 sanofi pasteur complet ed tuberculi n purified protein derivativ e 02/07/04 Given Ambulat ory Pharmac y tuberculin purified protein derivative 2002 [id number] 96 sanofi pasteur complet ed tuberculi n purified protein derivativ e 09/07/03 Given Ambulat ory Pharmac y influenza virus vaccine, whole virus 2002 [id number] Novartis Pharmaceutica ls complet ed influenza virus vaccine, whole virus 09/07/03 Given Ambulat ory Pharmac y influenza virus vaccine, whole virus 2002 [id number] Novartis Pharmaceutica ls complet ed influenza virus vaccine, whole virus 08/09/03 Given Ambulat ory Pharmac y Results Combined list of recent chemistry, hematology and other laboratory results from Department of Defense and Veterans Affairs, ranging from 15 months to all on record, depending upon the facility. Order Name Results Value Reference Range Date Interpretation Specimen Comments Source Infectiou s Disease HIV-1/O/2 Non-Reac tive 1 (11/21/24 1:57 PM) 11/21 N Interpretiv e Data: INTERPRETAT ION: This method is a screening procedure for the detection of HIV p24 Antigen and Antibodies to HIV-1, including Group O, and/or HIV-2. NON-REACTIV E: HIV-1 antigen and HIV-1 / HIV-2 antibodies were not detected. No laboratory evidence of HIV infection. A negative test result does not exclude the possibility of exposure to or infection with HIV. HIV antibodies and/or p24 antigen may be undetectabl e in some stages of the infection and in some clinical conditions. If acute HIV infection is suspected, consider submitting another specimen to a reference laboratory for HIV-1 RNA. SCREEN REACTIVE - CONFIRMATIO N TO FOLLOW: Possible presence of HIV-1antibo dies, HIV-2 antibodies and/or HIV-1 p24 antigen. Specimen will reflex to the confirmatio n testing that fulfills the Center for Disease Control and Prevention' s HIV diagnostic algorithm. Refer to [facility] Lab Guide for additional information : [email or web address]/ [email or web address] x Testing performed by [employer] elise ce. 5600A-U [facility] [employer] Miscellan eous Sendouts Repository Sample Received (11/21/24 1:57 PM) 11/21 N 5600A-U [facility] Encounters Combined list of: 1) Encounters from Department of [facility] facilities going backup to the last 18 months, not all ID inpatient encounters are included; 2) [facility] going backup to 280 months. Location Location Details Encounter Type Encounter Number Reason For Visit Attending Provider ADM Date DC Date Status Disposition Source [id number] AMDS Outpatient [id number] HENRY ROBERSON 12/06 Discharge Disposition: Home or Self Care [id number] AMDS [id number] AMDS Care Not Rendered [id number] 12/11 Discharge Disposition: Home or Self Care [id number] AMDS Procedures Combined list of: 1) Procedures from Department of [facility] facilities going back up to thelast 18 months, not all ID non-surgical procedures are included; 2) All procedures from the [facility] facilities. Procedure Procedure Type Code Date Perfomer Comments Sourc e No data available for this section Ambulatory P harmacy Social History Combined list of available smoking, tobacco, and other social history from Department [facility] and [facility] facilities. Social History Type Response Date Comment Sourc e Sex Representation Male 11/17/2022 Unknow n Organization Sexual Orientation Ambula tory Pharmacy Gender identity Ambulator y Pharmacy Assessment and Plan Combined list of future care activities from [facility] and [facility] facilities (e.g., assessment and plan notes, appointments, orders, and referrals). Additional future care activities may be listed in the Plan of Care section. Result Assessment and Plan Date Source Assessment and Plan Extracted from:Title : [facility] PHA Author: KORTNEY RODRIGUES Date: 12/11/24 member here for AUOF PHA Addendum by PAM BARONE on December 11, 2024 09:41 EST History of Refractive Surgery- No?Contact Lenses- N/A?Enrolled in Contact Lens Program- N/A?Gas Mask Inserts ordered- No?Current SRX on file- Yes DVA (uncorrected) OD: 20/30 OS:?20/30 DVA (Corrected) OD: 20/20 OS: 20/20 NVA (uncorrected) OD: 20/20 OS: 20/20 Confrontation test: Pass Optometry findings meet standards- Yes Addendum by PAM BARONE on December 11, 2024 09:43 EST ?Vitals: Blood Pressure:???136/87 Heart Rate: 69 Height: 72 Weight: 260lbs BMI: Medications: naproxen, desonide, atorvastatin, clobetasol sildenafil Chronic Problems: psoriasis SF 507: N/A Comments: ALC-2 for psoriasis. RW due 05/05/2025 Addendum by HENRY SOUTH MD on December 11, 2024 09:55 EST Chief Complaint: Member here for annual PHA.?No acute complaints.?IMR?green. HEENT:?Normal Joints:?Normal Lungs:?Normal Heart:?Normal Comments: ANNUAL PERIODIC HEALTH ASSESSMENT I. EXPLORATION MANAGER INFORMATION AND DEMOGRAPHICS (SMI) 1. Last Name: JOEY 2. First Name: KORTNEY 3. Middle Name: LEXIE 4. Assessment Date: 5. : 6. Age: 49 7. Gender: M 8. [employer] ID Number: [id number] 9. 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 Unit Name: [address] [employer] 14. Duty Station/Location: [place] 15. [facility]: [id number] 16. Is this your first Periodic Health Assessment (PHA)?: N 17. Are you enrolled in a secure messaging system with your health care provider?: 18. Current contact information: Preferred Method: Email 1 DSN: Day Time Phone: [phone] Night Time Phone: [phone] Email 1: [email or web address] Email 2: [email or web address] Address: [address] [place] [address]: [facility]: [place] Zip Code: [id number] 19. Point of contact who can always reach you: Name: Yajaira Cook Phone 1: [phone] Phone 2: [email or web address] EMAIL: Address: [address] [place] [address]: [facility]: [place] Zip Code: [address] II. DEPLOYMENT INFORMATION (DEP) 1. [ 0 ] Total number of deployments in the PAST 5 YEARS 4. [ N ] Are you going to deploy within the NEXT 120 DAYS? III. 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 [ No ] Does your specialty require an operational duty physical exam? 4. [ Yes ] Are you currently enrolled in a medical surveillance/occupational health program?: Yes IV. MEDICAL CONDITIONS (LUCILLE): 1. Since your last PHA, have you experienced any of the following health conditions, and if so, what is your status? [ ] Conditions with no medical care [ Change in vision ] Conditions with medical care, but no longer under treatment [ ] Conditions with medical care, and NOW under treatment 2. Since your last PHA, have you experienced any of the following health conditions, and if so, what is your status? [ ] Conditions with no medical care [ ] Conditions with medical care, but no longer under treatment [ New skin condition ] Conditions with medical care, and NOW under treatment 3. For any condition marked YES in question 1 or 2, are you currently on any profile or limited duty for that condition? [ ] Conditions 4. [ No ] Have you been based or stationed at a location where an open burn pit was used? 5. [ No ] Have you been exposed to toxic airborne chemicals or other airborne contaminants? 8. Have you had any surgery since your last PHA?: No 10.a. [ No ] Since your last PHA, has a health care provider recommended surgery(s) that you have not had? 11.a. [ No ] Do you currently require hearing aids, special medical supplies, CPAP, adaptive equipment, assistive technology devices, and/or other special accommodations? 12.a. [ No ] Do you have a waiver or profile for any part of your Service's physical fitness test? 13.a. [ No ] Do you have any problems wearing a gas mask, ballistic helmet, body armor, and/or chemical/biological protective garments? 14.a. [ No ] Have you ever been told by a health care provider that you SHOULD NOT receive an immunization for medical reasons? 15.a. [ Yes ] Do you have a permanent profile or an Assignment Limitation Code C? 15.b. [ psoriasis ] Why 16.a. [ No ] Are you on a temporary profile or limited duty? 17. [ 0 ] During the PAST 2 years, how many times have you been placed on a temporary profile or on limited duty? V. INDIVIDUAL MEDICAL READINESS (IMR) 1. [ No ] Do you have any allergies? 3. [ Not required ] Do you have red medical warning dog tags? 4. [ Yes ] Do you wear corrective lenses? 5. [ 2 or more ] How many pairs of glasses do you have? 6. [ No ] Do you have gas mask inserts? . BEHAVIORAL HEALTH (MHA) 1. a. [ None ] Over the PAST MONTH, what major life stressors have you experienced that are a cause of significant concern or make it difficult for you to do your work, take care of things at home, or get along with other people (for example, serious conflicts with others, relationship problems, or a legal, disciplinary or financial problem)? 2. a. [ No ] In the PAST YEAR did you receive care for any mental health condition or concern such as, but not limited to post traumatic stress disorder (PTSD), depression, anxiety disorder, alcohol abuse or substance abuse? 3. [ None ] What prescription or over-the counter medications (including herbals/supplements) for sleep, pain, combat stress, or a mental health problem are you CURRENTLY taking? 4. a. [ No ] In the past 12 months, have you gambled? 5. a. [ Never ] How often do you have a drink containing alcohol? 6. Have you ever had any experience that was so frightening, horrible, or upsetting that in the PAST MONTH, you: 6. a. [ No ] Have had nightmares about it or thought about it when you did not want to? 6. b. [ No ] Tried hard not to think about it or went out of your way to avoid situations that remind you of it? 6. c. [ No ] Were constantly on guard, watchful or easily startled? 6. d. [ No ] [place] numb or detached from others, activities, or your surroundings? 6. e. [ Not answered ] [place] guilt or unable to stop blaming yourself or others for the event(s) or any problems the event(s) may have caused? 7. Over the LAST 2 WEEKS, how often have you been bothered by the following problems? 7. a. [ Not at all ] Little interest or pleasure in doing things 7. b. [ Not at all ] Feeling down, depressed, or hopeless 8. [ No ] Would you like to schedule an appointment with a health care provider to discuss any health concern(s)? 9. [ No ] Are you interested in receiving information or assistance for a stress, emotional or alcohol concern? 10. [ No ] Are you interested in receiving assistance for a family or relationship concern? 11. [ No ] Would you like to schedule a visit with a national recruiter, mental health care provider, or a community support counselor? VII. FAMILY HISTORY AND LIFESTYLE (LIF) 1. [ Very Good ] Overall, how would you rate your health during the PAST MONTH? 2. [ Canc ] Member indicates that family members have the following problems 3. The following family members has/had a history of cancer: Breast: Sister Ovarian: Mother 6. [ Yes ] I participate in moderate intensity physical activites at least 2.5 hours, or a combination of moderate and vigorous aerobic activites, for at least 75 minutes per week. 7. In a typical week, I do physical activities specifically designed to STRENGTHEN my muscles: [ 4 ] Day(s) per week 8. [ None ] What prescriptions or lelu-hia-bntybwl medications are you CURRENTLY taking for health problems on a ROUTINE BASIS? 9. Which of the following products have you taken since your last PHA: Multi-Vitamins: Once a day [place]-3 Supplements: Once a day Vitamin D: Less than once a month 11. Think about the PAST 30 DAYS. How often did you eat/drink the following foods/beverages? [ 3 to 6 servings per week ] Fruits [ 1 serving per day ] Vegetables [ 1 or 2 servings per week ] Starchy Vegetables [ 1 or 2 servings per week ] Whole Grains [ 1 or 2 servings per week ] Dairy and Calcium Containing Foods [ 1 or 2 servings per week ] Fish [ 1 serving per day ] Lean Protein [ Rarely or Never ] Sugar-Sweetened Beverages 12. [ Yes ] Have you had a cholesterol check by a health adult care provider within the PAST 5 YEARS? 13.a. In the PAST 30 DAYS, which of the following products have you used on at least one day? None 15. Which of the following best describes your past tobacco use? I have never used tobacco products. 16. [ No ] Are you regularly exposed to secondhand smoke? 17. [ 7 to 9 hours ] During the LAST 2 WEEKS, how many hours of sleep did you get on most days? 18. [ No ] During the LAST 2 WEEKS, have you felt impaired or unable to adequately perform due to sleepiness or poor quality sleep? 19. [ No ] Have you had any unexplained weight loss or gain since your last PHA? 20. Member is not at risk for sexually transmitted infections. 22. Since your last PHA, what, if anything, have you and your partner used to keep from getting ? [ I have a same sex partner(s). ] I am not actively taking steps to prevent as 23. [ No ] In the last year, have you or your partner had a scare, where you were not trying to get but were worried enough to use a home test? IX. RESERVE COMPONENT (RES) 1. [ No ] Do you have an injury, illness, Or disease which was incurred or aggravated while in a duty status since your last PHA? 4. [ Yes - ] Are you currently coverered under a health insurance policy? 5.a. [No, I have never applied for Worker's Compensation ] Do you have any current physical or mental health limitations related to a Worker's Compensation claim? 6. [ No ] Have you applied for or have you received a VA disability rating? X. OTHER MEDICAL (OTH) 1. [ 0 ] Rate the amount of pain you have had, on average, over the PAST 24 HOURS 3. [ No ] Since your last PHA, have you received care or treatment for any medical and/or mental health condition(s) from a civilian or non- facility? 5. Member acknowledged responsibility for reporting health issues. 7. [ No ] Woud you like to schedule an appointment with a health care provider to discuss any health concerns? XI. SEPARATION AND FPC 1. 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 PART B. RECORD REVIEW AND RECOMMENDATIONS I. RECORD REVIEWER INFORMATION 1. Last Name: ADAMS 2. First Name: CYNDI 3. Middle Name: 4. Service Branch: [employer] 5. 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 EMAIL: [email or web address] 8. Facility: [facility] 9. Unit: [facility] 10. Address: [address] [place] [address] 11. State: [place] 12. Zip Code: [address] 13. 14. Date Record Review: II. MEDICAL SCREENING 1. [ ] Date of membership assistant's most recent PHA 2. [ 6 feet 0 inches Date: ] membership assistant's most recently documented height 3. [ 264 pounds Date: ] membership assistant's most recently documented weight 4. [ 131/85 Date: ] membership assistant's most recently documented blood pressure reading 5. [ No ] Does the membership assistant have a history of abnormal blood pressure since their last PHA? 6. [ Yes ] Does the membership assistant have a laboratory test of sickle cell trait documented in their permanent medical record? 7. [ No Cholesterol Test Documented ] What is the date of the membership assistant's most recently documented cholesterol test? 8. [ No Colon Cancer Screening Documented ] What is the date of the membership assistant's most recently documented colon cancer screening? 9. [ Atorvastatin 20mg Cosentyx Pen 300mg/2Ml sildenafil citrate (DISCONTINUE) DESONIDE (DISCONTINUE) ] List of membership assistant's active medications listed in their permanent medical record 10. [ No ] Is there a discrepancy between the active medication record review and the membership assistant's self-reported list of medications? 11. [ F/u psoriasis ] List documented significant care the membership assistant has received since their last PHA from a provider OUTSIDE the Health System 12. [ No ] Is there a discrepancy between the membership assistant's list of OUTSIDE care (from OT5), and the OUTSIDE care found in the record? 13. [ No Inside Care Documented ] List documented significant care the membership assistant has received since their last PHA from a provider INSIDE the Health System 15. [ Not Answered ] Confirm that vaccine exemptions are listed in the medical record for each vaccine listed III. OCCUPATION-SPECIFIC EXAMINATIONS 2. [ ] When was the membership assistant's most recently documented evaluation? IV. FAMILY HISTORY AND LIFESTYLE 1. [ Yes ] Does the [id number] reflect the membership assistant's reported family history? VII. INDIVIDUAL MEDICAL READINESS 1. [ Yes ] Does the membership assistant have an Assignment Limitation Code C? 3. [ Classification: 1 ] Most recently documented dental exam 4. [ Yes ] Is the membership assistant current on all required immunizations in the immunization tracking system? 5. [ No, membership assistant needs: gas mask inserts ] Is the membership assistant current with Service-specific requirements for glasses and gas mask inserts? 6. Does the membership assistant have the following laboratory tests documented in their permanent medical record? [ No ] HIV test within the PAST 24 months [ Yes ] G6PD results on file [ Yes ] Blood type and Rh on file [ Yes ] DNA test on file IX. ADDITIONAL RECORD REVIEWER COMMENTS 1. This record review does NOT have a need for provider notification or referral.2. Additional comments about this record review that need to be forwarded to the Health Gasket Maker completing PART C: Under tx for psoriasis. JLV reviewed. No significant findings. Date Record Review Completed: PART C. HEALTH CARE PROVIDER I. MENTAL HEALTH ASSESSMENT (MHA) PROVIDER INFORMATION 1. Last Name: HENNY 2. First Name: HENRY 3. Middle Name: 4. 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 EMAIL: [email or web address] 8. Facility: [facility] 9. Unit: [facility] 10. Address: [address] [place], [place] [address]Mart[place] 11. State: [place] 12. Zip Code: [address] 13. Phone: [phone] 14. Date HCP Review initiated: 1. Member marked that they did not have a concern or a difficulty with a major life stressor. 2. Address concerns identified on member questions 2 and 3. History of mental health care: N/A Member's response: Provider's comments: Medications: N/A Member's response: Provider's comments: 3. Member's AUDIT-C screening score was 0. (nothing required) 4. Member did not harvey yes on two or more of questions 6a through 6e. 5. Member did not harvey More than half the days or nearly every day on question 7a or 7b. 6. Suicide risk evaluation. 6. a. Ask: Over the past month, have you wished you were or wished you could go to sleep and not wake up?: No 6. b. Ask: Have you actually had any thoughts of killing yourself?: No 6. f. 1. Ask: In you lifetime, have you done anything, started to do anything, or prepared to do anything to end your life?: No 6. g. Further risk assessment comments: 7. Member states that they have not had thoughts or concerns over the past month that they might hurt or lose control with someone. 9. Summary of Provider's identified concerns needing referrals: None 11. Comments: 13. Supplemental services recommended/information provided: No supplemental services required Date MHA Certified: III. PERIODIC HEALTH ASSESSMENT (PHA) PROVIDER INFORMATION 1. Last Name: HENNY 2. First Name: HENRY 3. Middle Name: 4. 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 EMAIL: [email or web address] 8. Facility: [address] [place], [place] [address] 9. Unit: [address] [place], [place] [address] 10. Address: [address] [place] [address] 11. State: [place] 12. Zip Code: [address] 13. Phone: [phone] 14. Date HCP Review initiated: IV. PERIODIC HEALTH ASSESSMENT PROVIDER RECOMMENDATIONS and REFERRALS 1. Provider concerns with this assessment: No issues or concerns identified V. SUMMARY AND COMMENTS 1. Additional information summarizing findings during the membership assistant assessment: 2. Provider Comments: Doing well. Only using topical creams for psoriasis, will request removal of C code and next RILO. Plans to retire in July 2025. . INDIVIDUAL MEDICAL READINESS DISPOSITION DETERMINATION LUCILLE: Not Ready DEN: Ready IMM: Ready LAB: Ready ME: Ready IMR Status: Partially Medically Ready VII. SERVICE MEDICAL DEPLOYABILITY EVALUATION INDICATED Based on your review of all documentation, is the membership assistant medically deployable without limitations? Reference Misty 6490.07 Yes (membership assistant DOES NOT currently have a medical condition that limits deployability) Date PHA Completed: END OF [id number] REPORT Impression:Meets?medical standards per ERIC 48-123/MSD. Disposition:?No AF469 changes based on this encounter.Member is mobility restricted/C-coded.C2 Extracted from:Title: AUof PHA predoc vitals Author: LOREN TRINH Date: 12/28/23 ?Vitals: Blood Pressure:???131/85 Heart Rate: 65 Height: 72 Weight:265 BMI: Medications: None Chronic Problems: ?Psoriasis SF 507: _ Comments: Addendum by KORTNEY RODIRGUES on December 28, 2023 14:42 EST History of Refractive Surgery-?NO Contact Lenses-?NO Enrolled in Contact Lens Program-?N/A Gas Mask Inserts ordered-?N/A Current SRX on file-?N/A DVA (uncorrected) OD: 20/20 OS:?20/20 NVA (uncorrected) OD: 20/20 OS: 20/20 Color Vision: NORMAL/PASS Confrontational Levy: NORMAL/PASS Optometry findings meet standards- Yes Addendum by JUNIOR TEMPLETON on December 28, 2023 14:57 EST Chief Complaint: Member here for annual PHA.?No acute complaints.?IMR?red: HEENT:?Normal Joints:?Normal Lungs:?Normal Heart:?Normal Comments:?ALC C -2 ANNUAL PERIODIC HEALTH ASSESSMENT I. EXPLORATION MANAGER INFORMATION AND DEMOGRAPHICS (SMI) 1. Last Name: COOK 2. First Name: KORTNEY 3. Middle Name: LEXIE 4. Assessment Date: 5. : 6. Age: 48 7. Gender: M 8. DoD ID Number: [id number] 9. Service Branch: [employer] 10. 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 Status: [employer] [place] 12. 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 Unit Name: [address] [employer] 14. Duty Station/Location: [place] 15. UIC: [id number] 16. Is this your first Periodic Health Assessment (PHA)?: N 17. Are you enrolled in a secure messaging system with your health care provider?: U 18. Current contact information: Preferred Method: Day Time Phone DSN: Day Time Phone: [phone] Night Time Phone: [phone] Email 1: [email or web address] Email 2: Address: [address] [place] [address]: [facility]: [place] Zip Code: [id number] 19. Point of contact who can always reach you: Name: Yajaira Cook Phone 1: [phone] Phone 2: EMAIL: Address: [address] [place] [address]: [facility]: [place] Zip Code: [address] II. DEPLOYMENT INFORMATION (DEP) 1. [ 0 ] Total number of deployments in the PAST 5 YEARS 4. [ N ] Are you going to deploy within the NEXT 120 DAYS? III. 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 [ No ] Does your specialty require an operational duty physical exam? 4. [ Yes ] Are you currently enrolled in a medical surveillance/occupational health program?: Yes IV. MEDICAL CONDITIONS (LUCILLE): 1. Since your last PHA, have you experienced any of the following health conditions, and if so, what is your status? [ ] Conditions with no medical care [ ] Conditions with medical care, but no longer under treatment [ ] Conditions with medical care, and NOW under treatment 2. Since your last PHA, have you experienced any of the following health conditions, and if so, what is your status? [ ] Conditions with no medical care [ ] Conditions with medical care, but no longer under treatment [ ] Conditions with medical care, and NOW under treatment 3. For any condition marked YES in question 1 or 2, are you currently on any profile or limited duty for that condition? [ ] Conditions 4. [ No ] Have you been based or stationed at a location where an open burn pit was used? 5. [ No ] Have you been exposed to toxic airborne chemicals or other airborne contaminants? 8. Have you had any surgery since your last PHA?: No 10.a. [ No ] Since your last PHA, has a health care provider recommended surgery(s) that you have not had? 11.a. [ No ] Do you currently require hearing aids, special medical supplies, CPAP, adaptive equipment, assistive technology devices, and/or other special accommodations? 12.a. [ No ] Do you have a waiver or profile for any part of your Service's physical fitness test? 13.a. [ No ] Do you have any problems wearing a gas mask, ballistic helmet, body armor, and/or chemical/biological protective garments? 14.a. [ No ] Have you ever been told by a health care provider that you SHOULD NOT receive an immunization for medical reasons? 15.a. [ Yes ] Do you have a permanent profile or an Assignment Limitation Code C? 15.b. [ Skin Condition ] Why 16.a. [ No ] Are you on a temporary profile or limited duty? 17. [ 0 ] During the PAST 2 years, how many times have you been placed on a temporary profile or on limited duty? V. INDIVIDUAL MEDICAL READINESS (IMR) 1. [ No ] Do you have any allergies? 3. [ Not required ] Do you have red medical warning dog tags? 4. [ No ] Do you wear corrective lenses? . BEHAVIORAL HEALTH (MHA) 1. a. [ None ] Over the PAST MONTH, what major life stressors have you experienced that are a cause of significant concern or make it difficult for you to do your work, take care of things at home, or get along with other people (for example, serious conflicts with others, relationship problems, or a legal, disciplinary or financial problem)? 2. a. [ No ] In the PAST YEAR did you receive care for any mental health condition or concern such as, but not limited to post traumatic stress disorder (PTSD), depression, anxiety disorder, alcohol abuse or substance abuse? 3. [ None ] What prescription or over-the counter medications (including herbals/supplements) for sleep, pain, combat stress, or a mental health problem are you CURRENTLY taking? 4. a. [ No ] In the past 12 months, have you gambled? 5. a. [ Never ] How often do you have a drink containing alcohol? 6. Have you ever had any experience that was so frightening, horrible, or upsetting that in the PAST MONTH, you: 6. a. [ No ] Have had nightmares about it or thought about it when you did not want to? 6. b. [ No ] Tried hard not to think about it or went out of your way to avoid situations that remind you of it? 6. c. [ No ] Were constantly on guard, watchful or easily startled? 6. d. [ No ] [place] numb or detached from others, activities, or your surroundings? 6. e. [ Not answered ] [place] guilt or unable to stop blaming yourself or others for the event(s) or any problems the event(s) may have caused? 7. Over the LAST 2 WEEKS, how often have you been bothered by the following problems? 7. a. [ Not at all ] Little interest or pleasure in doing things 7. b. [ Not at all ] Feeling down, depressed, or hopeless 8. [ No ] Would you like to schedule an appointment with a health care provider to discuss any health concern(s)? 9. [ No ] Are you interested in receiving information or assistance for a stress, emotional or alcohol concern? 10. [ No ] Are you interested in receiving assistance for a family or relationship concern? 11. [ No ] Would you like to schedule a visit with a national recruiter, mental health care provider, or a community support counselor? VII. FAMILY HISTORY AND LIFESTYLE (LIF) 1. [ Very Good ] Overall, how would you rate your health during the PAST MONTH? 2. [ Canc ] Member indicates that family members have the following problems 3. The following family members has/had a history of cancer: Breast: Sister Ovarian: Mother 6. [ Yes ] I participate in moderate intensity physical activites at least 2.5 hours, or a combination of moderate and vigorous aerobic activites, for at least 75 minutes per week. 7. In a typical week, I do physical activities specifically designed to STRENGTHEN my muscles: [ 4 ] Day(s) per week 8. [ None ] What prescriptions or ekpe-rqp-[id number] medications are you CURRENTLY taking for health problems on a ROUTINE BASIS? 9. Which of the following products have you taken since your last PHA: Multi-Vitamins: Once a day Individual Vitamins or Minerals: Once a day [place]-3 Supplements: Once a day Vitamin D: Less than once a month 11. Think about the PAST 30 DAYS. How often did you eat/drink the following foods/beverages? [ 2 servings per day ] Fruits [ 2 servings per day ] Vegetables [ 3 to 6 servings per week ] Starchy Vegetables [ 1 or 2 servings per week ] Whole Grains [ 1 or 2 servings per week ] Dairy and Calcium Containing Foods [ 1 or 2 servings per week ] Fish [ 1 or 2 servings per week ] Lean Protein [ Rarely or Never ] Sugar-Sweetened Beverages ] Have you had a cholesterol check by a health adult care provider within the PAST 5 YEARS? 13.a. In the PAST 30 DAYS, which of the following products have you used on at least one day? None 15. Which of the following best describes your past tobacco use? I have never used tobacco products. 16. [ No ] Are you regularly exposed to secondhand smoke? 17. [ 7 to 9 hours ] During the LAST 2 WEEKS, how many hours of sleep did you get on most days? 18. [ No ] During the LAST 2 WEEKS, have you felt impaired or unable to adequately perform due to sleepiness or poor quality sleep? 19. [ No ] Have you had any unexplained weight loss or gain since your last PHA? 20. Member is not at risk for sexually transmitted infections. 22. Since your last PHA, what, if anything, have you and your partner used to keep from getting ? [ Sterilization ] I am actively taking steps to prevent , including 23. [ No ] In the last year, have you or your partner had a scare, where you were not trying to get but were worried enough to use a home test? X. OTHER MEDICAL (OTH) 1. [ 0 ] Rate the amount of pain you have had, on average, over the PAST 24 HOURS 3. [ No ] Since your last PHA, have you received care or treatment for any medical and/or mental health condition(s) from a civilian or non- facility? 5. Member acknowledged responsibility for reporting health issues. 7. [ No ] Woud you like to schedule an appointment with a health care provider to discuss any health concerns? XI. SEPARATION AND FPC 1. 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 PART B. RECORD REVIEW AND RECOMMENDATIONS I. RECORD REVIEWER INFORMATION 1. Last Name: ANA LILIA 2. First Name: DANIELA 3. Middle Name: Lety 4. Service Branch: [employer] 5. 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 EMAIL: [email or web address] 8. Facility: [facility] 9. Unit: [facility] 10. Address: [address] [place] [address] 11. State: [place] 12. Zip Code: [address] 13. 14. Date Record Review: II. MEDICAL SCREENING 1. [ ] Date of membership assistant's most recent PHA 2. [ 5 feet 11 inches Date: ] membership assistant's most recently documented height 3. [ 256 pounds Date: ] membership assistant's most recently documented weight 4. [ 121/79 Date: ] membership assistant's most recently documented blood pressure reading 5. [ No ] Does the membership assistant have a history of abnormal blood pressure since their last PHA? 6. [ Yes ] Does the membership assistant have a laboratory test of sickle cell trait documented in their permanent medical record? 7. [ No Cholesterol Test Documented ] What is the date of the membership assistant's most recently documented cholesterol test? 8. [ No Colon Cancer Screening Documented ] What is the date of the membership assistant's most recently documented colon cancer screening? 9. [ sildenafil citrate DESONIDE ] List of membership assistant's active medications listed in their permanent medical record 10. [ Yes: sildenafil citrate DESONIDE ] Is there a discrepancy between the active medication record review and the membership assistant's self-reported list of medications? 11. [ seen for left corneal abrasion 03/2023 seen for strain of L Achilles tendon 12/2022 Seen for thyrotoxicosis and nontoxic multinodular goiter 07/2023 ] List documented significant care the membership assistant has received since their last PHA from a provider OUTSIDE the Health System 12. [ Yes: seen for left corneal abrasion 03/2023 seen for strain of L Achilles tendon 12/2022 Seen for thyrotoxicosis and nontoxic multinodular goiter 07/2023 ] Is there a discrepancy between the membership assistant's list of OUTSIDE care (from OT5), and the OUTSIDE care found in the record? 13. [ No Inside Care Documented ] List documented significant care the membership assistant has received since their last PHA from a provider INSIDE the Health System 15. [ Not Answered ] Confirm that vaccine exemptions are listed in the medical record for each vaccine listed III. OCCUPATION-SPECIFIC EXAMINATIONS 2. [ ] When was the membership assistant's most recently documented evaluation? IV. FAMILY HISTORY AND LIFESTYLE 1. [ Yes ] Does the [id number] reflect the membership assistant's reported family history? VII. INDIVIDUAL MEDICAL READINESS 1. [ Yes ] Does the membership assistant have an Assignment Limitation Code C? 3. [ Classification: 1 ] Most recently documented dental exam 4. [ No: Influenza, [place] ] Is the membership assistant current on all required immunizations in the immunization tracking system? 6. Does the membership assistant have the following laboratory tests documented in their permanent medical record? [ Yes ] HIV test within the PAST 24 months [ Yes ] G6PD results on file [ Yes ] Blood type and Rh on file [ Yes ] DNA test on file IX. ADDITIONAL RECORD REVIEWER COMMENTS 1. This record review indicates the potential need for provider notification or referral: Provider Notified 2. Additional comments about this record review that need to be forwarded to the Health Gasket Maker completing PART C: C2 for psoriasis. being seen for Subclinical hyperthyroidism. No MH concerns. No alcohol concerns. No tobacco use. No medications. Supplements: multi vit, ind vit/minerals, omega 3, vit D. No other findings in JLV. Date Record Review Completed: PART C. HEALTH CARE PROVIDER I. MENTAL HEALTH ASSESSMENT (MHA) PROVIDER INFORMATION 1. Last Name: ABIGAILBESS 2. First Name: JUNIOR 3. Middle Name: 4. 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 EMAIL: [email or web address] 8. Facility: [address] [place], [place] [address] 9. Unit: 9 [facility] 10. Address: [address] [place] [address] 11. State: [facility]. Zip Code: [address] 13. 14. Date HCP Review initiated: 1. Member marked that they did not have a concern or a difficulty with a major life stressor. 2. Address concerns identified on member questions 2 and 3. History of mental health care: N/A Member's response: Provider's comments: Medications: N/A Member's response: Provider's comments: 3. Member's AUDIT-C screening score was 0. (nothing required) 4. Member did not harvey yes on two or more of questions 6a through 6e. 5. Member did not harvey More than half the days or nearly every day on question 7a or 7b. 6. Suicide risk evaluation. 6. a. Ask: Over the past month, have you wished you were or wished you could go to sleep and not wake up?: No 6. b. Ask: Have you actually had any thoughts of killing yourself?: No 6. f. 1. Ask: In you lifetime, have you done anything, started to do anything, or prepared to do anything to end your life?: No 6. g. Further risk assessment comments: 7. Member states that they have not had thoughts or concerns over the past month that they might hurt or lose control with someone. 9. Summary of Provider's identified concerns needing referrals: None 11. Comments: 13. Supplemental services recommended/information provided: No supplemental services required Date MHA Certified: III. PERIODIC HEALTH ASSESSMENT (PHA) PROVIDER INFORMATION 1. Last Name: YOKASTA 2. First Name: JUNIOR 3. Middle Name: 4. 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 EMAIL: [email or web address]..[email or web address] 8. Facility: [address] [place] [address] 9. Unit: [address] [place] [address] 10. Address: [address] [place] [address] 11. State: [facility]. Zip Code: [address] 13. 14. Date HCP Review initiated: IV. PERIODIC HEALTH ASSESSMENT PROVIDER RECOMMENDATIONS and REFERRALS 1. Provider concerns with this assessment: No issues or concerns identified V. SUMMARY AND COMMENTS 1. Additional information summarizing findings during the membership assistant assessment: 2. Provider Comments: . INDIVIDUAL MEDICAL READINESS DISPOSITION DETERMINATION LUCILLE: Ready DEN: Ready IMM: Ready LAB: Ready ME: Ready IMR Status: Fully Medically Ready VII. SERVICE MEDICAL DEPLOYABILITY EVALUATION INDICATED Based on your review of all documentation, is the membership assistant medically deployable without limitations? Reference Misty 6490.07 Yes (membership assistant DOES NOT currently have a medical condition that limits deployability) Date PHA Completed: END OF [id number] REPORT Impression:_?medical standards per ERIC 48-123/MSD. Disposition:?No AF469 changes based on this encounter.World-Wide Qualified. 01/16/2025 [id number] AMDS Functional Status Combined list of recent functional and cognitive assessments recorded at Department of Defense and Veterans Affairs (VA).VA Functional [place] Measurement (FIM) Scale: 1 = Total Assistance (Subject = 0% +), 2 = Maximal Assistance (Subject = 25% +), 3 = Moderate Assistance (Subject = 50% +), 4 = Minimal Assistance (Subject = 75% +), 5 = Supervision, 6 = Modified [place] (Device), 7 = Complete [place] (Timely, Safely). Assessment Date/Time Source Assessment Type Assessment Skill Assessment Score Assessment Details No data available for this section
--- OUTSIDE RECORDS SUMMARY | 2025-01-16 14:41 | XMS_ITS ---
Author Organization [facility] Address [address] [place] [address] Care Team Providers Care Digital Data Analyst Name Role Phone Issac Douglas Primary Care Provider Unav ailable Florencia Mancilla Unavailable [phone] Medications Medication SIG (Take, Route, Frequency, Duration) Notes Start Date End Date Status Atorvastatin Calcium 20 MG 1 tablet Orally Once a day Active Sildenafil Citrate 100 MG 1 tablet as ne eded Orally Once a day Active Naproxen 500 MG 1 tablet Orally WITH FOOD Twice a day for 30 days 11/29/2024 Active Cosentyx 150 MG/ML 1 mL Subcutaneous Active Encounters Encounter Location Date Provider Diagnosis [facility] [address] [place] [address] 12/24/2024 Florencia Mancilla Plan Of Treatment Next Appt Details Provider Name:Florencia dixon, 01/30/2025 03:15:00 PM, [address] [place] [address], [phone], Progress Notes * Rafy COOK BDOB:[birth year] (49 yo M)Acc No.[id number]:12/24/2024 Progress Note Patient:?Rafy COOK Provider:?Florencia Mancilla DPM :1975???Age:49 Y???Sex:Male Ian e:12/24/2024 Address[address] [id number] Pcp:JAMES Hanson Subjective: * Chief Complaints: * ??? * Medical History:? * Medications:?Taking Cosentyx 150 MG/ML Solution Prefilled Syringe 1 mL Subcutaneous , Taking Sildenafil Citrate 100 MG Tablet 1 tablet as needed Orally Once a day , Taking Atorvastatin Calcium 20 MG Tablet 1 tablet Orally Once a day , Taking Naproxen 500 MG Tablet 1 tablet Orally WITH FOOD Twice a day Objective: * Vitals:? Assessment: Plan: * Treatment: * Images: * The named appointment provid er may or may not be the originator of this progress note, and it is not deemed complete until electronically signed by the appointment provider. Sign off status: Pending * Provider:?Florencia Mancilla DPM Date:? Generated for Teresa jaramillo/Eduarda/Lurdes on:?01/16/2025 02:41 PM EDT
--- OUTSIDE RECORDS SUMMARY | 2025-01-16 14:41 | XMS_ITS ---
Author Organization [facility] Address [address] [place] [address] Care Team Providers Care Diesel Mechanic Helper Name Role Phone Issac Douglas Primary Care Provider Unav ailable Florencia Mancilla Unavailable [phone] REASON FOR VISIT No show Encounters Encounter Location Date Provider Diagnosis [facility] [address] [place] [address] 12/24/2024 Florencia Mancilla Plan Of Treatment Next Appt Details Provider Name:Florencia dixon, 01/30/2025 03:15:00 PM, [address] [place] [address], [place], [address], Progress Notes * Rafy COOK BDOB:[birth year] (49 yo M)Acc No.[id number]:12/24/2024 Patient:?Rafy COOK :1975???Age:49 Y???Sex:Male Address:[address] [place] [address] * true * Date:? Generated for Printi ella/Eduarda/eTransmitting on:?01/16/2025 02:41 PM EDT
--- OUTSIDE RECORDS SUMMARY | 2025-01-16 14:41 | XMS_ITS ---
Author Organization [facility] Address [address] [place] [address] Care Team Providers Care Gaming Dealer Name Role Phone Issac Douglas Primary Care Provider Unav ailable Florencia Mancilla Unavailable [phone] Encounters Encounter Location Date Provider Diagnosis [address] [address] 01/09/2025 Florencia Mancilla Plan Of Treatment Next Appt Details Provider Name:Florencia dixon, 01/30/2025 03:15:00 PM, [address] [place] [address], [phone], Progress Notes * Rafy COOK BDOB:[birth year] (49 yo M)Acc No.[id number]:01/09/2025 Progress Note Patient:?Rafy COOK Provider:?Florencia Mancilla DPM :1975???Age:49 Y???Sex:Male Ian e:01/09/2025 Address:[address] [id number] Pcp:JAMES Hanson Subjective: * Chief Complaints: * ??? * Medical History:? Objective: * Vitals:? Assessment: Plan: * Treatment: * Images: * The named appointment provid er may or may not be the originator of this progress note, and it is not deemed complete until electronically signed by the appointment provider. Sign off status: Pending * Provider:?Florencia Mancilla DPM Date:?04/2025 Generated for Teresa jaramillo/Eduarda/Lurdes on:?01/16/2025 02:41 PM EDT
--- OUTSIDE RECORDS SUMMARY | 2025-01-16 14:41 | XMS_ITS | Clinical Summary ---
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 Role Phone Unavailable Primary Care Provider Unavailabl e Social History Tobacco Use Types Packs/Day Years Used Date Smoking Tobacco: Never Assessed Sex and Gender Information Value Date Recorded Sex Assigned at Not on file Legal Sex Male 8:35 PM EST Gender Identity Not on file Sexual Orientation Not on file Plan of Treatment Health Maintenance Due Date Last Done Comments DTaP,Tdap,and Td Vaccines (1 - Tdap) 1992 Hepatitis B Vaccines (1 of 3 - 19+ 3-dose series) 1992 Pneumococcal Vaccine: 50+ Ye ars (1 of 1 - PCV) 2023 Zoster Vaccines (1 of 2) 2023 Cholesterol Screening (Lipid Panel) 11/29/2023 Colorectal Cancer Screening: Colonoscopy 11/29/2023 Depression Screening 11/29/2023 HIV Screening 11/29/2023 Hepatitis C Screening 11/29/2023 Social Influencers of Health Screening 11/29/2023 COVID-19 Vaccine (1 - 2023-2 5 season) 2024 Influenza Vaccine (#1) 2024 HIB Vaccines Aged Out No longer eligi ble based on patient's age to complete this topic HPV Vaccines Aged Out No longer eligi ble based on patient's age to complete this topic Hepatitis A Vaccines Aged Out No long er eligible based on patient's age to complete this topic IPV Vaccines Aged Out No longer eligi ble based on patient's age to complete this topic MMR Vaccines Aged Out No longer eligi ble based on patient's age to complete this topic Meningococcal ACWY Vaccine Aged Out N o longer eligible based on patient's age to complete this topic Meningococcal B Vacine Aged Out No lo nger eligible based on patient's age to complete this topic Pneumococcal Vaccine: Pediat rics (0 to 5 Years) and At-Risk Patients (6 to 64 Years) Aged Out No longer eligible b ased on patient's age to complete this topic RSV Immunization Patients Un dona 20 months Aged Out No longer eligible b ased on patient's age to complete this topic Varicella Vaccines Aged Out No longer eligible based on patient's age to complete this topic
== END 2025-01-16 12:06 | disposition home or self-care (01) ==
LOC: HO.HMCC 11:21
PROVIDERS: PCP Nurse Practitioner Family; Visit Provider Nurse Practitioner Family
DX: B34.9 Viral infection, unspecified (principal)

== ENCOUNTER 2025-01-28 11:35 | Outpatient (REF) | payer OTHER, SELFPAY ==
[2025-01-28 13:27] LABS: MANUAL DIFF FLAG NO
[2025-01-28 13:31] LABS: Basophils Absolute Auto 0.1 X10*3/uL (0.0-0.2); Eosinophils Absolute Auto 0.4 X10*3/uL (0.0-0.4); Eosinophils Percent Auto 6.9 % (0-4); Hematocrit 39.6 % (42.0-52.0); Hemoglobin 13.2 g/dl (14.0-18.0); Imm Gran Abs Auto 0.02 X10*3/uL (0.00-0.03); Imm Gran Pct Auto 0.4 % (0.0-0.4); Lymphocytes Absolute Auto 1.6 X10*3/uL (1.2-4.9); Lymphocytes Percent Auto 29.9 % (20-40); Mean Corpuscular HGB Conc 33.3 g/dl (31.0-36.0); Mean Platelet Volume 9.3 fL (9.4-12.4); Monocytes Absolute Auto 0.7 X10*3/uL (0.1-1.2); Monocytes Percent Auto 12.7 % (2-11); Neutrophils Absolute Auto 2.5 x10*3/uL (2.0-8.3); Neutrophils Percent Auto 49.1 % (45-73); Platelet Count 470 X10*3/uL (160-400); Red Cell Distribution Width 12.5 % (11.0-16.0); White Blood Count 5.2 X10*3/uL (4.8-10.8)
[2025-01-28 13:34] LABS: Appearance Urine Clear; Color Urine Dark Yellow; Glucose Urine UA Negative (Negative); Leukocyte Esterase Urine Negative (Negative); Nitrite Urine Negative (Negative); Specific Gravity - Urine >= 1.030 (1.005-1.025); Urine Blood Negative (Negative); Urine Ketones Trace mg/dL (Negative); Urine Protein Negative (Neg-Trace)
[2025-01-28 14:10] LABS: Prostate Specific Antigen 1.76 ng/mL (<0.05-4.0)
[2025-01-28 15:03] LABS: Alanine Aminotransferase 22 U/L (0-40); Albumin Level 3.5 g/dL (3.5-5.0); Alkaline Phosphatase 122 U/L (39-117); Anion Gap 11 (12-20); Aspartate Amino Transferase 25 U/L (5-37); Bilirubin Total 0.5 mg/dL (0.0-1.0); Blood Urea Nitrogen 21 mg/dL (9-16); Calcium 9.4 mg/dL (8.4-10.2); Carbon Dioxide 25 mmol/L (22-29); Chloride 109 mmol/L (96-108); Cholesterol 101 mg/dL (<200); Estimated Glomerular Filt Rate > 60; Glucose Fasting 96 mg/dL (60-99); HDL Cholesterol 30 mg/dL (>40); LDL Cholesterol Calculated 54 mg/dL (<100); Potassium 4.5 mmol/L (3.3-5.1); Sodium 140 mmol/L (135-145); Total Protein 7.8 g/dL (6.5-8.0); Triglycerides 87 mg/dL (<150)
[2025-01-28 15:18] LABS: TSH reflex Free T4 0.22 uIU/mL (0.32-4.0)
[2025-01-28 16:18] LABS: Free T4 (Free Thyroxine) 1.08 ng/dL (0.71-1.85)
== END 2025-01-28 11:36 | disposition home or self-care (01) ==
LOC: HO.HMGCLDS 11:35
PROVIDERS: PCP Nurse Practitioner Family; Visit Provider Urology
DX: N52.9 Male erectile dysfunction, unspecified (principal); B34.9 Viral infection, unspecified; Z13.29 Encounter for screening for other suspected endocrine disorder; Z12.5 Encounter for screening for malignant neoplasm of prostate
CPT/HCPCS: 36415; 80053; 80061; 81003; 84153; 84439; 84443; 85025

== ENCOUNTER 2025-01-31 10:43 | Outpatient (AMB) | payer OTHER, SELFPAY ==
--- NOTE | 2025-01-31 10:54 | A.OFFVIS_ITS ---
Intake Visit Reasons: 1y/PSA(PSA?) Intake Note: Pt presents to the office today for a 1 year follow up/PSA. Allergies No Known Allergies Allergy (Verified 01/31/25 10:54) HPI Comments Details: Rafy is a pleasant male. He is a patient of Dr. Velasquez. He is seen for the following urologic conditions - elevated PSA - erectile dysfunction PSA remains within target Good response to sildenafil on as needed basis Prescription provided 12 month follow-up Elevated PSA PSA 02/25 3.0 Laboratory - 02/24 T 284 Fr 53, FSH 1.8 LH 2.5, 12/29 2.2, 12/30 1.3, 01/28 1.8 Minimal symptoms No family history Is on immunosuppression secondary to psoriasis Erectile dysfunction 100 mg sildenafil good response PFSH Medical History Carpal tunnel syndrome of left wrist Subclinical hyperthyroidism Multinodular goiter Tubular adenoma Dyslipidemia Hypertension Psoriasis Surgical History Hx of colonoscopy Hx of foot surgery History of tooth extraction Family History Father HTN (hypertension) Unknown family medical history Mother HTN (hypertension) Sister No problems noted. Social History Housing: Condominium Alcohol intake: never Patient Tobacco Use Status: Never used Tobacco e-Cigarette/Vaping Use: Never Used Second Hand Smoke Exposure: No service: Yes Current occupational exposures/hazards: No Cognitive needs: No Hearing needs: No Vision needs: No Review of Systems Const Denies chills and Denies fever(s) Card Reports no additional complaints and Denies syncope Resp Denies cough GI Denies abdominal pain and Denies heartburn Reports as per HPI and Denies change in libido Neuro Denies syncope Psych Denies change in libido Endo Denies change in libido Physical Exam Const General: cooperative, healthy appearing, comfortable and no acute distress Orientation/consciousness: patient oriented x3 HEENT Face and sinus: Yes normal facial exam Mouth: moist mucous membranes Neck Neck: Yes normal visual inspection, Yes full ROM and Yes trachea midline Chest Chest palpation & inspection: normal inspection of the chest Resp Effort & Inspection: normal respiratory effort, able to speak in complete sentences and no respiratory distress GI Inspection: Yes normal to inspection Back/Spine/Pelvis Cervical Spine: normal cervical lordosis Thoracic/Lumbar Spine: thoracic and lumbar spine normal to inspection Skin General skin exam: no rashes or lesions noted Neuro General: patient oriented x3, gait normal, tone normal and moves all extremities Extrem General: Yes normal to inspection and Yes capillary refill normal Assessment & Plan Assessment & Plan (1) Elevated PSA: Code(s): R97.20 - Elevated prostate specific antigen [PSA] Category: Medical (2) Erectile dysfunction: Code(s): N52.9 - Male erectile dysfunction, unspecified Category: Medical Plan Twelve month follow-up PSA Orders: Orders Prostate Specific Antigen 364 Days R97.20 - Elevated prostate specific antigen [PSA] Patient Instructions: This note is constructed using voice recognition software. While every effort has been made to ensure accuracy associate publisher errors may have been included. Imaging studies, laboratory and physical exam results were discussed and reviewed in detail. No major barriers to patient understanding were identified. An opportunity to ask questions regarding the treatment plan was provided. All questions were answered. The patient expressed understanding and agreement with the above treatment plan. The patient is aware they should contact our office by phone for worsening of their current condition or the appearance of new urologic symptoms. Compliance is encouraged with any medications and followup testing that is ordered. It is a privilege to participate in the urologic care of your patient. If you have any questions or concerns regarding treatment for the above conditions, or other urologic issues, please do not hesitate to contact me. The office telephone contact is [phone]. Sincerely, Dr Carlos Bowie MD, [facility] - Urology Compassionate Specialist Care for the Genitourinary System Coding Level of Care Code Est Pt Level 4 (57505) Complex EM visit Add On G2211 Diagnoses Elevated PSA R97.20 Erectile dysfunction N52.9
== END 2025-01-31 11:31 | disposition home or self-care (01) ==
LOC: HO.HUSH 10:44
PROVIDERS: PCP Nurse Practitioner Family; Visit Provider Urology
DX: R97.20 Elevated prostate specific antigen [PSA] (principal); N52.9 Male erectile dysfunction, unspecified
CPT/HCPCS: 99214; G2211

== ENCOUNTER → 2025-01-31 10:43 | Outpatient (BNVA) | payer OTHER, SELFPAY | PROVIDERS: PCP Nurse Practitioner Family; Visit Provider Urology | DX: R97.20 Elevated prostate specific antigen [PSA] (principal); N52.9 Male erectile dysfunction, unspecified | CPT/HCPCS: 99212 ==

== ENCOUNTER 2025-02-18 10:35 | Outpatient (REF) | payer OTHER, SELFPAY ==
--- OUTSIDE RECORDS SUMMARY | 2025-02-18 12:43 | XMS_ITS | Patient Health Record ---
[facility] [place] Address [address] [place] [address] Care Team Providers Care Hotel Concierge Name Role Phone Issac Douglas Primary Care Provider Unav ailable Florencia Mancilla Unavailable [phone] Allergies No Known Allergies Reason For Referral Diagnosis 1 Pain in unspecified foot (M79.673) Referring Provider First Name Issac Referring Provider Last Name Rosa [facility] [place] Referred Provider Florencia Mancilla Referred Address [address] ,[place], [place],[address], Referred Provider Specialty Podiatry Referral Priority Routine Medications Medication SIG (Take, Route, Frequency, Duration) Notes Start Date End Date Status Sildenafil Citrate 100 MG 1 tablet as ne eded Orally Once a day Active Night Splint AFO - L1930 as directed 02/03/2025 Active Atorvastatin Calcium 20 MG 1 tablet Orally Once a day Active Custom Orthotics as directed 02/03/2025 Active Naproxen 500 MG 1 tablet Orally [...] (Standard) Question Answer Notes Tobacco use: Nonsmoker Additional Findings: Tobacco non-user Current no nsmoker AUDIT-C (Standard) Question Answer Notes Did you have a drink containing alcohol in the p ast year? No Points 0 Interpretation Negative Problems Problem Type SNOMED Code ICD Code Onset Dates Problem Status W/U Status Risk Notes Problem [id number] Plantar fascial fibromatosis (M72.2) Active confirmed Vital Signs Blood pressure diastolic 80 mm Hg 02/03/2025 Height 6ft in 02/03/2025 Blood pressure systolic 120 mm Hg 02/03/2025 Weight 265 lbs 02/03/2025 BMI 35.94 kg/m2 02/03/2025 Encounters Encounter Location Date Provider Diagnosis [facility] [address] 11/29/2024 Florencia Perica Pain in left foot M79.672 ; Posterior tibial tendinitis of left lower extremity M76.822 ; Flat foot [pes planus] (acquired), left foot M21.42 and Plantar fascial fibromatosis M72.[address] [address] 02/03/2025 Florencia Perica Pain in left foot M79.672 ; Posterior tibial tendinitis of left lower extremity M76.822 ; Flat foot [pes planus] (acquired), left foot M21.42 and Plantar fascial fibromatosis M72.[address] [address] 02/03/2025 Florencia Perica [address] [address] 08/13/2024 Florencia Perica [facility] [address] 11/29/2024 Florencia Perica [facility] [address] 12/24/2024 [facility] [address] [address] 01/28/2025 Florencia Perica [address] [address] 02/03/2025 Florencia Mancilla Assessments Encounter Date Diagnosis (ICD Code) Assessment Notes Treatment Notes Treatment Clinical Notes Section Notes 11/29/2024 Pain in left foot (ICD-10 - M79.672) 11/29/2024 Posterior tibial tendinitis of left lower extremity (ICD-10 - M76.822) 02/03/2025 Pain in left foot (ICD-10 - M79.672) 02/03/2025 Posterior tibial tendinitis of left lower extremity (ICD-10 - M76.822) 11/29/2024 Flat foot [pes planus] (acquired), left foot (ICD-10 - M21.42) 02/03/2025 Flat foot [pes planus] (acquired), left foot (ICD-10 - M21.42) 02/03/2025 Plantar fascial fibromatosis (ICD-10 - M72.2) 11/29/2024 Plantar fascial fibromatosis (ICD-10 - M72.2) Plan Of Treatment Pending Test Test Name Order Date X ray : Foot, left 3V 02/03/2025 Next Appt Details Provider Name:Florencia dixon, 03/04/2025 10:15:00 AM, [address] [place] [address], [phone], Insurance Providers Payer Name Payer Address Payer Phone Subscriber Number Group Number Insured Name Patient Relationship to Insured Coverage Start Date Coverage End Date [employer] [address] [place] [address] [id number] Rafy Mckeon Self - patient is the insured 1 Medical (General) History Medical History History ICD Code Joint implants/screws Surgical History Surgery Date(Month/Year) Left PT tendonitis surgery 2017 colonoscopy
--- OUTSIDE RECORDS SUMMARY | 2025-02-18 12:43 | XMS_ITS | Clinical Summary ---
Author Organization [facility] ity Address [address] [place] [address] Care Team Providers Care Reproduction Artist Name Role Phone Unavailable Primary Care Provider [...] Influencers of Health Screening 11/29/2023 COVID-19 Vaccine ( - 2023-2 5 season) 2024 Influenza Vaccine (Season Ended) 2025 HIB Vaccines Aged Out No longer eligi [...] age to complete this topic Meningococcal B Vaccine Aged Out No l onger eligible based on patient's age to complete [...]
--- OUTSIDE RECORDS SUMMARY | 2025-02-18 12:43 | XMS_ITS | Continuity of Care Document ---
Author Organization [facility] Address [address] [place] [address] Phone [phone] Care Team Providers Care Supervisor Filtration Name Role Phone Issac Lee Care Team Information Vacuum Tank Tender [phone] Problems Active Problems Provider Date Hyperlipidemia Vicente [...] SIG Qnty Indications Ordering Provider Date Atorvastatin Wypjzcs80jz Tablets Take 1 Tablet By Mouth AT Bedtime For 90 Days Issac Lee Sildenafil Jwijhva747gt Tablets Please See Attached For Detailed Directions Carlos Bowie Cosentyx Onbksudk921pt/2ML Solution Auto-Inject One injection every 4 weeks Reinaldo Ortiz MD Vital Signs Date Vital Result Comment 06/20/2024 8:57am BP Systolic 130 mmHg BP Diastolic 90 mmHg Heart Rate 72 /min Height 72 inches 6'0 Weight 259.50 lb BMI (Body Mass Index) 35.2 kg/m2 Results Test Acquired Date Facility Test Result H/L Range N ote TSH RFX On Abnormal To Free T4 06/21/2024 [facility] TSH RFX On Abnormal To Free T4 <pending> TSH Rfx on Abnormal to Free T4 06/20/2024 [facility] TSH Rfx on Abnormal to Free T4 0.504 uIU/mL 0.450-4.5 00 TSH With Reflex To FT4 11/20/2023 [facility] TSH With Reflex To FT4 0.91 uIU/mL (0.4-4.2) TSH With Reflex To FT4 07/18/2023 [facility] TSH With Reflex To FT4 1.09 uIU/mL (0.4-4.2) 1 Thyrotropin Receptor AB 07/18/2023 [facility] Thyrotropin Receptor AB <1.10 2 TSH With Reflex To FT4 06/27/2023 [facility] TSH With Reflex To FT4 <pending> TSH 06/23/2023 [facility] TSH 0.67 uIU/mL (0.4-4.2) Free T3 06/23/2023 [facility] Free T3 3.4 pg/mL (2.3-5.0) Free T4 06/23/2023 [facility] Free T4 1.02 ng/dL (0.70-1.8 0) Anti Thyroid Peroxidase AB 06/23/2023 [facility] Anti Thyroid Peroxidase AB 9.7 IU/mL (<34) 3 1 Duplicate order canc elled via interface 2 Reference range: 0.0 0 to 1.75 Unit: IU/L Test performed at [address] [address] Effective 06/20/2023 method will change from Serology (Barnett Electrical Equipment Technician to Chemistry (Celestine E801). Anti-Thyroid Peroxidase reference [...]
--- OUTSIDE RECORDS SUMMARY | 2025-02-18 12:43 | XMS_ITS ---
Author Organization [facility] Address [address] [place] [address] Care Team Providers Care Roller Stitcher Name Role Phone Issac Douglas Primary Care Provider Unav ailable Florencia Mancilla Unavailable [phone] REASON FOR VISIT Custom ots Encounters Encounter Location Date Provider Diagnosis [address] [address] 02/03/2025 Florencia Mancilla Plan Of Treatment Next Appt Details Provider Name:Florencia dixon, 03/04/2025 10:15:00 AM, [address] [place], [address], Progress Notes * Rafy COOK BDOB:[birth year] (49 yo M)Acc No.[id number]:02/03/2025 Patient:?Rafy COOK :1975???Age:49 Y???Sex:Male Address:[place] [address] * * Date:?
--- OUTSIDE RECORDS SUMMARY | 2025-02-18 12:43 | XMS_ITS ---
Author Organization [facility] Address [address] [facility] [place] [address] Care Team Providers Care Coper Hand Name Role Phone Issac Douglas Primary Care Provider Unav Florencia Latham Unavailable [phone] Allergies No Known Allergies REASON FOR VISIT Foot pain Medications Medication SIG (Take, Route, Frequency, Duration) [...] ast year? No Points 0 Interpretation Negative Vital Signs Height 6ft in 02/03/2025 Weight 265 lbs 02/03/2025 BMI 35.94 kg/m2 02/03/2025 Blood pressure systolic 120 mm Hg 02/04/20 25 Blood pressure diastolic 80 mm Hg 025 Encounters Encounter Location Date Provider [facility] [address] [place] [address] 02/03/2025 Florecnia Mancilla Pain in left foot M79.672 ; Posterior tibial tendinitis of left lower extremity M76.822 ; Flat foot [pes planus] (acquired), left foot M21.42 and Plantar fascial fibromatosis M72.2 Assessments Encounter Date Diagnosis (ICD Code) Assessment Notes Treatment Notes Treatment Clinical Notes Section Notes 02/03/2025 Pain in left foot (ICD-10 - M79.672) 02/03/2025 Posterior tibial tendinitis of left lower extremity (ICD-10 - M76.822) 02/03/2025 Flat foot [pes planus] (acquired), left foot (ICD-10 - M21.42) 02/03/2025 Plantar fascial fibromatosis (ICD-10 - M72.2) Plan Of Treatment Medication Medication Name Sig Start Date Stop Date Notes Night Splint AFO - L1930 as directed 02/03/2025 Custom Orthotics as directed 02/03/2025 Pending Test Test Name Order Date X ray : Foot, left 3V 02/03/2025 Next Appt Details Follow Up: 4 Weeks, Reason: Provider Name:Florencia dixon, 03/04/2025 10:15:00 AM, [address] [place], [address], Progress Notes * Rafy COOK BDOB:[birth year] (49 yo M)Acc No.[id number]:02/03/2025 Progress Note Patient:?Rafy COOK Provider:?Florencia Mancilla DPM :1975???Age:49 Y???Sex:Male Ian e:02/03/2025 [address], [facility] Pcp:JAMES Hanson Subjective: * Chief Complaints: * ???Foot pain * HPI: ???Foot Pain:?Nature:?aching, pulling, tenderness, throbbing, weakness.?Location:?LEFT, Arch(es), Rearfoot.?Duration:?, several months > 8 months.?Onset:?gradual, denies trauma.?Course:?, unchanged, unresolved.?Aggravated:?any pressure, standing, walking, job/occupation.?Treatments:?rest/alter normal daily activity, ice, pt states he had previous PT tendon surgery about 10 years ago, medication ( Naproxen), stretching.? * ROS:?General/Constitutional:?Nausea?denies.?Vomiting?denies.?Hunger Thirst?denies.?Loss appetite?denies.?Chills?denies.?Fatigue?denies.?Fever?denies.?Night Sweats?denies.?Unexplained weight loss?denies.?Unexplained weight gain?denies.?HEENTM:?Dentures?denies.?Dizziness?denies.?Glasses/contacts?denies.?Retinopathy?de nies.?Blurred/double vision?denies.?TMJ?denies.?Discharge/drainage?denies.?Implants?denies.?Sore throat?denies.?Dental implants?denies.?Hard of hearing ?denies.?Difficulty chewing/swallowing/speaking?denies.?Nose bleeds?denies.?Sore mouth?denies.?Respiratory:?On Oxygen?denies.?Pneumonia/pleurisy?denies.?Bronchitis?denies.?Emphysema?denies.?C oughing?denies.?Cough blood?denies.?Shortness of breath?denies.?Wheezing?denies.?Cardiovascular:?Pacemaker?denies.?MVP?denies.?WPW?denies.?CHF?denies.?Heart attack?denies.?Septal defect?denies.?Rapid beat?denies.?Chest pain ?denies.?Atrial Fib.?denies.?Murmur/Palpitations?denies.?Gastrointestinal:?Hemorrhoids?denies.?Stomach/Abdominal pain?denies.?Dark blood stool?denies.?Irritable bowel ?denies.?Constipation?denies.?Diarrhea?denies.?Hematology:?Swelling?denies.?Clots?denies.?Varicose Veins?denies.?Bruising?denies.?Bleeding problem?denies.?Genitourinary:?Blood urine?denies.?Frequent/Painfu/urination/bladder control?denies.?Kidney stones?denies.?Infection (UTI)?denies.?Nephropathy?denies.?sex trans dis (STD)?denies.?Prostate?denies.?Musculoskeletal:?Hammertoes?denies.?Bunions?denies.?Back Pain?denies.?Muscle Cramps/ Resting?denies.?Muscle cramps / walking?denies.?Generalized aches and pains?denies.?Weakness?denies.?Integ.:?Russell?denies.?Scars?denies.?Corns/calluses?denies.?Ingrown nails?denies.?Painful nails?denies.?Open Sores?denies.?Rashes?denies.?Neurologic:?Difficulty sleeping?denies.?Brain disorder?denies.?Numbness?denies.?Balance trouble?denies.?Confusion?denies.?Fainting/blackouts?denies.?Tingling?denies.?Tr emors?denies.? * Medical History:? * Surgical History:?Left PT te ndonitis surgery 2017colonoscopy * Hospitalization/Major Diagno stic Procedure:?Denies Past Hospitalization * Family History:?Mother: dece ased, diagnosed with Other malignant neoplasm of unspecified site.?Father: .? * Social History:?Tobacco Use:?Tobacco use other than smoking?Are you an other tobacco user??No ?Tobacco Control (Standard)?Tobacco use:?Nonsmoker ?Additional Findings: Tobacco non-user?Current nonsmoker ???Drugs/Alcohol:?Drugs?Have you used drugs other than those for medical reasons in the past 12 months??No ???Miscellaneous:?Caffeine: yes, frequency: one cup a week. ?Children: no. ?Exercise: no. ?Marital status: . 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 ???Drug/Alcohol:?AUDIT-C (Standard)?Did you have a drink containing alcohol in the past year??No ?Points?0 ?Interpretation?Negative * Medications:?TakingCosentyx 150 MG/ML Solution Prefilled Syringe 1 mL Subcutaneous Sildenafil Citrate 100 MG Tablet 1 tablet as needed Orally Once a day Atorvastatin Calcium 20 MG Tablet 1 tablet Orally Once a day Naproxen 500 MG Tablet 1 tablet Orally WITH FOOD Twice a day Medication List reviewed and reconciled with the patientTaking Cosentyx 150 MG/ML Solution Prefilled Syringe 1 mL Subcutaneous Taking Sildenafil Citrate 100 MG Tablet 1 tablet as needed Orally Once a day Taking Atorvastatin Calcium 20 MG Tablet 1 tablet Orally Once a day Taking Naproxen 500 MG Tablet 1 tablet Orally WITH FOOD Twice a day Medication List reviewed and reconciled with the patient * Allergies:?N.K.D.A.yes[Aller gies Verified] Objective: * Vitals:?Ht: 6ft, Wt:265, BMI :35.94, Shoe size: 13, BP:120/80mm Hg, Ht-cm: 182.88 cm, Wt-k.2 kg. * Examination: ???Orthopedic: ?MUSCLE STRENGTH:?5/5 all groups in a symmetrical fashion , B/L.?GAIT ABNORMALITY:?Pronated, abducted angle and base of gate, B/L.?FOOT MORPHOLOGY:?Rigid medial/plantar protrusion of Midfoot at area of Navicular tuberosity, B/L, Pes Planus structure, Semi-flexible.?TENDONITIS:?Cont Pain on palpation, inflammation, and fusiform swelling to,Posterior Tibial Tendon, sheath ,insertion,LEFT,Pain with Range of Motion,Decreased Rearfoot inversion with heel rise, LEFT.?FOOTWEAR EVALUATION:?fair condition.?Neurological: ?SENSORY:?Neurological exam reveals intact sensorium, pain sensation normal, vibration sensation intact, pinprick sensation is normal in the lower extremities, Pt denies, anesthesia, burning, paresthesia, tingling, B/L.?TINEL'S COMPRESSION:?Negative, Tarsal tunnel, Left.?General Examination: ?GENERAL APPEARANCE:?Reveals a pleasant, alert, well-nourished, well- developed, well hydrated individual, who demonstrates proper attention to hygiene/body habitus, and is in no acute distress, Pt serves as own?historian for office visit today.?ORIENTED:?person, place, and time.?Vascular: ?DP PULSES (B):?3/4, B/L.?PT PULSES (B):?3/4, B/L.?CAPILLARY FILL TIME:?immediate, all digits, B/L.?TROPHIC CONDITION-TEXTURE/ELASTICITY/TURGOR/HAIR GROWTH (B):?normal, B/L.?TEMPERTURE GRADIENT (C):?warm to cool, proximal to distal, B/L.?PIGMENTATION:?normal, B/L.?EDEMA (C):?absent, B/L.?Dermatologic: ?SKIN FINDINGS:?Skin exam reveals normal texture, elasticity, and turgor. There are no masses. The interspaces are clear.?Heel Pain: ?INSPECTION REVEALS:?LEFT foot, Pain on Palpation to Plantar Fascia med. and central bands, intrinsic musc., infra-calcaneal bursa, and med calc tubercle, No pain: posterior/superior heel, achilles bursa/tendon, sinus tarsi, peroneals, or with lateral heel compression; no limited STJ ROM, calor, or ecchymosis.?X-Rays - IMAGING REPORT: ?Clinical Indication(s):?Evaluate Biomechanical Deformity.?Views:?3 views of Foot, LEFT, AP, LAT, LO, Taken by a trained Podiatric Processing Specialist ( TG).?Findings:?normal bone and soft tissue density consistent for patients age and sex, navicular/cuneiform plantar subluxation with anterior cyma line, screws present calcaneus.?Foot structure:?reveals excess pronation with, anterior break in cyme line, increased talar declination, decreased calcaneal inclination.?Fracture:?Negative fractures identified.? * Physical Examination:?L3000 Custom Fabricated OT:?Custom Orthotic?Custom Fabricated Orthoses.?L1930 Nightsplint AFO:?Application of static AFO, including soft interface material, adjustable for fit/ positioning/ pressure reduction, may be used for minimal ambulation, prefabricated, including fitting and adjustment:?XL, Left.? Assessment: * Assessment: 1.?Pain in left foot - M79.6 72???2.?Posterior tibial tendinitis of left lower extremity - M76.822 (Primary)???Specify :Acute problem, Complicated w/ Multiple Tx Options(4),???3.?Flat foot [pes planus] (acquired), left foot - M21.42???4. Plantar fascial fibromatosis - M72.2??? Plan: * Treatment: * Procedure Codes:?25546 X-RAY EXAM OF LEFT FOOT 3V, Modifiers: 26 , [id number] AFO PLASTIC/OTH MATERIAL [id number] Prescription Custom Fabricated Foot insert, Units: 2.00 * Preventive Medicine:? ??Counseling:?Discussion:?-14: Office or other outpatient visit for the evaluation and management of an established patient, which required a medically appropriate history and/or examination and MODERATE level of DECISION MAKING for: 1 OR MORE CHRONIC PROBLEM(S) THATS WORSENING, 2 STABLE CHRONIC PROBLEMS, A NEWLY DIAGNOSED PROBLEM WITH UNCERTAIN PROGNOSIS, AN ACUTE COMPLICATED INJURY WITH MULTIPLE TREATMENT OPTIONS, OR AN ACUTE PROBLEM WITH ACCOMPANYING SYSTEMIC SYMPTOMS, THAT POSE(S) A MODERATE RISK OF MORBIDITY. THIS CONDITION MAY ALSO INCLUDE RX DRUG MANAGEMENT, OR A DECISON FOR MINOR SURGERY. The visit on the day of the encounter encompassed interpreting the data and educating the patient as to the nature of their condition, treatment options available according to their individual PMH, meds, allergies, and overall health/living conditions, as well as any potential risks or complications that may occur from a failure to adhere to, and participate in, the recommended course of therapy. The discussion included a complete verbal, and/or written explanation of the examination results, any x-rays taken, the proposed diagnosis, and outline of the treatment plan. A schedule for future care needs was also explained. The patient verbalized an understanding of the instructions at this time and agreed to be an active participant in their treatment. If the patient should think of any questions or concerns after the visit, I have encouraged the patient to call the office.?BioMech.:?I discussed the Pts foot biomechanics with them and how it relates to their problem.?Myositis/Tendonitis:?TENDONITIS: I explained to the patient the possible etiologies of their Tendonitis, including foot type/shoegear/activity level/exercise routine and the risks/benefits of the different treatment options for their pain including: No treatment at all, Rest, Ice, Oral Prednisone, NSAIDs(only if well tolerated after meals), New/supportive Shoegear, Strappings and Tapings, Stretching exercises, Deep Tissue Massage, Heel cups/cushions, Arch support/shoe inserts, Custom orthoses, Foot/Ankle AFO Bracing, Cast boot with crutches/cane/or walker for assisted ambulation, Topical analgesics including Aspercream/Voltaren gel, Physical Therapy, EPAT/ESWT, and Interfil injection therapy. Tendon surgical procedures including reefing and/or transfers were also detailed should either one become necessary through failure of conservative treatment. The advantages and disadvantages of each option were discussed and the patient's questions re: shoegear, the difference between custom vs prefabricated inserts, activity level, PO vs Topical medications (and their respective potential complications/drug interactions/side effects), consistency in home treatment regimens for optimal success, as well as the potential benefits and possible complications of reconstructive surgery (includeing, but not limited to failure, prolongued/delayed healing, infection, weakness, persistant pain) were answered to their verbally confirmed satisfaction.?Orthotics:?I explained to the patient the benefits of OT use. I explained that orthoses are medically necessary to decrease the foot pain through proper mechanical control, support of their foot, decrease stretch/strain on the arch and tibial tendon, decrease pronation, decrease stretch/strain on the plantar fascia, Custom OT: A comprehensive biomechanical exam, gate analysis, and casting for custom orthoses was performed for L3000 ea per foot.?P.R.I.C.E.:?The patient was counseled on the use of P.R.I.C.E. and NSAIDS (if well tolerated) to aid in the recovery from their painful condition, Recommended Topical analgesics including Aspercream/Biofreeze/Voltaren gel as directed.?Shoe Gear Counseling:?The patient and I reviewed the types of shoes they should be wearing. My recommendation included obtaining a well-fitted shoe with a good supportive, non-foldable nor twistable sole, plenty of toe/room for the forefoot, and proper arch support. Based on todays examination, I recommended the patient look for new shoes, by having their feet professionally measured. We discussed that generally the best time of the day for a shoe fitting is the afternoon. Different shoes types and brands to best match the patients occupation and vocation were discussed. Specific brand selection will be up to the patient, their individual foot condition/deformities, and fit. The patient and I reviewed the standard new shoe break in period by wearing them for a few hours a day while checking for redness or sores as wear time is increased. The patient verbally confirmed to understanding the information discussed.?Stretching Exercises:?Stretching and deep tissue massage exercises for the patients injury/diagnosis were discussed and demonstrated, Handouts were also given, nightsplint dispensed.?X-rays:?Discussed and reviewed the X-rays with the patient. We discussed how the findings relate to the patients symptoms/complaints. Answered any and all questions..? ??Screening/Special Tests:?Fall Risk?Screening:?No falls in the past year ?FALLS: Screening for Future Fall Risk?Have you had any falls with injury in the past year??No * Follow Up:?4 Weeks * Images: * Sign off status: Completed true * Provider:?Florencia Mancilla, GALLO Date:? Generated for Teresa jaramillo/Eduarda/eTtiarasmitting on:?02/18/2025 12:42 PM EDT History and Physical Notes * HPI (History of Present Illness) Category Sub-Category Detail Notes Category Not es Foot Pain Nature: aching, pulling, tenderness, throbbing, weakness Location: LEFT, Arch(es), Rear foot Duration: , several months > 8 months Onset: gradual, denies esau jack Course: , unchanged, unresol sarina Aggravated: any pressure, standi ng, walking, job/occupation Treatments: rest/alter normal da brooke activity, ice, pt states he had previous PT tendon surgery about 10 years ago, medication ( Naproxen), stretching Physical Examination Category Sub-Category Detail Notes Section Note s L1930 Nightsplint AFO Application of sta tic AFO, including soft interface material, adjustable for fit/ positioning/ pressure reduction, may be used for minimal ambulation, prefabricated, including fitting and adjustment: XL, Left L3000 Custom Fabricated OT Custom Orthotic Custom Fabricated Orthoses Examination Category Sub-Category Detail Notes Category Not es Heel Pain INSPECTION REVEALS: LEFT foot, P ain on Palpation to Plantar Fascia med. and central bands, intrinsic musc., infra-calcaneal bursa, and med calc tubercle, No pain: posterior/superior heel, achilles bursa/tendon, sinus tarsi, peroneals, or with lateral heel compression; no limited STJ ROM, calor, or ecchymosis Neurological SENSORY: Neurological exa m reveals intact sensorium, pain sensation normal, vibration sensation intact, pinprick sensation is normal in the lower extremities, Pt denies, anesthesia, burning, paresthesia, tingling, B/L TINEL'S COMPRESSION: Negative, Tarsal tu nnel, Left Dermatologic SKIN FINDINGS: Skin exam reveal s normal texture, elasticity, and turgor. There are no masses. The interspaces are clear Orthopedic GAIT ABNORMALITY: Pronated, abducted angl e and base of gate, B/L FOOT MORPHOLOGY: Rigid medial/plantar protrusion of Midfoot at area of Navicular tuberosity, B/L, Pes Planus structure, Semi-flexible FOOTWEAR EVALUATION: fair condition TENDONITIS: Cont Pain on palpati on, inflammation, and fusiform swelling to,Posterior Tibial Tendon, sheath ,insertion,LEFT,Pain with Range of Motion,Decreased Rearfoot inversion with heel rise, LEFT MUSCLE STRENGTH: 5/5 all groups in a symmetrical fashion , B/L General Examination GENERAL APPEARANCE: Reveals a pleasant, alert, well- nourished, well-developed, well hydrated individual, who demonstrates proper attention to hygiene/body habitus, and is in no acute distress, Pt serves as own historian for office visit today ORIENTED: person, place, and t abner Vascular DP PULSES (B): 3/4, B/L PT PULSES (B): 3/4, B/L CAPILLARY FILL TIME: immediate, all digi ts, B/L TEMPERTURE GRADIENT (C): warm to cool, p roximal to distal, B/L TROPHIC CONDITION-TEXTURE/ELASTICITY/TURGOR/HAIR GROWTH (B): normal, B/L EDEMA (C): absent, B/L PIGMENTATION: normal, B/L X-Rays - IMAGING REPORT Findings: normal b one and soft tissue density consistent for patients age and sex, navicular/cuneiform plantar subluxation with anterior cyma line, screws present calcaneus Fracture: Negative fractures i dentified Foot structure: reveals excess prona tion with, anterior break in cyme line, increased talar declination, decreased calcaneal inclination Views: 3 views of Foot, LEF T, AP, LAT, LO, Taken by a trained Podiatric Processing Specialist ( TG) Clinical Indication(s): Evaluate Biomech anical Deformity
--- OUTSIDE RECORDS SUMMARY | 2025-02-18 12:43 | XMS_ITS ---
Author Organization [facility] Address [address] [place] [address] Care Team Providers Care Product Safety Associate Name Role Phone Issac Douglas Primary Care Provider Unav ailable Florencia Mancilla Unavailable [phone] REASON FOR VISIT night splint Encounters Encounter Location Date Provider Diagnosis [address] [address] 02/03/2025 Florencia Mancilla Plan Of Treatment Next Appt Details Provider Name:Florencia dixon, 03/04/2025 10:15:00 AM, [address] [place], [address], Progress Notes * Rafy COOK BDOB:[birth year] (49 yo M)Acc No.[id number]:02/03/2025 Patient:?Rafy COOK :1975???Age:49 Y???Sex:Male Address:[place] [address] * true * Date:? Generated for Printi ella/Fanikkie/eTransmitting on:?02/18/2025 12:42 PM EDT
[2025-02-18 13:31] LABS: MANUAL DIFF FLAG NO
[2025-02-18 13:35] LABS: Basophils Percent Auto 0.3 % (0-2); Eosinophils Absolute Auto 0.1 X10*3/uL (0.0-0.4); Hematocrit 38.5 % (42.0-52.0); Hemoglobin 13.1 g/dl (14.0-18.0); Imm Gran Abs Auto 0.01 X10*3/uL (0.00-0.03); Imm Gran Pct Auto 0.1 % (0.0-0.4); Lymphocytes Absolute Auto 1.6 X10*3/uL (1.2-4.9); Lymphocytes Percent Auto 22.5 % (20-40); Mean Corpuscular Hemoglobin 30.1 pg (27.0-33.0); Mean Corpuscular Volume 88.5 fL (80.0-98.0); Mean Platelet Volume 9.6 fL (9.4-12.4); Monocytes Absolute Auto 1.1 X10*3/uL (0.1-1.2); Monocytes Percent Auto 15.2 % (2-11); Neutrophils Absolute Auto 4.1 x10*3/uL (2.0-8.3); Neutrophils Percent Auto 59.9 % (45-73); Platelet Count 222 X10*3/uL (160-400); Red Blood Count 4.35 X10*6/uL (4.60-5.80); Red Cell Distribution Width 12.8 % (11.0-16.0); White Blood Count 6.9 X10*3/uL (4.8-10.8)
[2025-02-18 14:26] LABS: Alanine Aminotransferase 12 U/L (0-40); Albumin Level 3.9 g/dL (3.5-5.0); Anion Gap 11 (12-20); Aspartate Amino Transferase 17 U/L (5-37); Bilirubin Total 0.7 mg/dL (0.0-1.0); Blood Urea Nitrogen 12 mg/dL (9-16); Calcium 9.6 mg/dL (8.4-10.2); Carbon Dioxide 25 mmol/L (22-29); Chloride 107 mmol/L (96-108); Estimated Glomerular Filt Rate > 60; Glucose Random 98 mg/dL (60-115); Potassium 4.2 mmol/L (3.3-5.1); Sodium 139 mmol/L (135-145); Total Protein 7.8 g/dL (6.5-8.0)
[2025-02-18 17:31] LABS: Alkaline Phosphatase 76 U/L (39-117)
== END 2025-02-18 10:36 | disposition home or self-care (01) ==
LOC: HO.HMGCLDS 10:35
PROVIDERS: PCP Nurse Practitioner Family; Visit Provider Nurse Practitioner Family
DX: B34.9 Viral infection, unspecified (principal)
CPT/HCPCS: 36415; 80053; 84443; 85025

== ENCOUNTER 2025-03-18 14:55 | Outpatient (REF) | payer OTHER, SELFPAY ==
--- OUTSIDE RECORDS SUMMARY | 2025-03-18 15:56 | XMS_ITS ---
Author Organization [facility] Address [address] [place] [address] Care Team Providers Care Biomedical Field Service Engineer Name Role Phone Issac Douglas Primary Care Provider Unav ailable Charo Florencia Unavailable [phone] REASON FOR VISIT Medical records request Encounters Encounter Location Date Provider Diagnosis [facility] [address] [place] [address] 02/19/2025 Florencia Mancilla Plan Of Treatment No Information Progress Notes * Rafy COOK BDOB:[birth year] (49 yo M)Acc No.[id number]:02/19/2025 Patient:?Rafy COOK :1975???Age:49 Y???Sex:Male Address:[place] [address] * true * Date:? Generated for Printi ng/Fayasmineg/eTransmitting on:?03/18/2025 03:56 PM EDT
--- OUTSIDE RECORDS SUMMARY | 2025-03-18 15:56 | XMS_ITS | Continuity of Care Document ---
Author Organization [facility] Address [address] [place] [address] Phone [phone] Care Team Providers Care Hanger Off Name Role Phone Issac Lee Care Team Information Transcription Specialist + [phone] Problems Active Problems Provider Date Hyperlipidemia Vicente [...] SIG Qnty Indications Ordering Provider Date Atorvastatin [id number] Tablets Take 1 Tablet By Mouth AT Bedtime For 90 Days Issac Lee Sildenafil [id number] Tablets Please See Attached For Detailed Directions Carlos Bowie Cosentyx Pabmepmr567ul/2ML Solution Auto-Inject One injection every 4 weeks Reinaldo Ortiz MD Vital Signs Date Vital Result Comment 06/20/2024 8:57am BP Systolic 130 mmHg BP Diastolic 90 mmHg Heart Rate 72 /min Height 72 inches 6'0 Weight 259.50 lb BMI (Body Mass Index) 35.2 kg/m2 Results Test Acquired Date Facility Test Result H/L Range N ote TSH RFX On Abnormal To Free T4 06/21/2024 [facility] TSH RFX On Abnormal To Free T4 <pending> TSH Rfx on Abnormal to Free T4 06/20/2024 [facility] TSH Rfx on Abnormal to Free T4 0.504 uIU/mL 0.450-4.5 00 TSH With Reflex To FT4 11/20/2023 [facility] TSH With Reflex To FT4 0.91 uIU/mL (0.4-4.2) TSH With Reflex To FT4 07/18/2023 [facility] TSH With Reflex To FT4 1.09 uIU/mL (0.4-4.2) 1 Thyrotropin Receptor AB 07/18/2023 [facility] Thyrotropin Receptor AB <1.10 2 TSH With Reflex To FT4 06/27/2023 [facility] TSH With Reflex To FT4 <pending> TSH 06/23/2023 [facility] TSH 0.67 uIU/mL (0.4-4.2) Free T3 06/23/2023 [facility] Free T3 3.4 pg/mL (2.3-5.0) Free T4 06/23/2023 [facility] Free T4 1.02 ng/dL (0.70-1.8 0) Anti Thyroid Peroxidase AB 06/23/2023 [facility] Anti Thyroid Peroxidase AB 9.7 IU/mL (<34) 3 1 Duplicate order canc elled via interface 2 Reference range: 0.0 0 to 1.75 Unit: IU/L Test performed at [address] [address] 3 Effective 06/20/2023 method will change from Serology (Barnett Reconcilement Clerk to Chemistry (Celestine [id number]). Anti-Thyroid Peroxidase reference [...]
--- OUTSIDE RECORDS SUMMARY | 2025-03-18 15:56 | XMS_ITS | Clinical Summary ---
Author Organization [facility] Address [address] [place] [address] Care Team Providers Care High Tension Tester Name Role Phone Unavailable Primary Care Provider [...]
--- OUTSIDE RECORDS SUMMARY | 2025-03-18 15:56 | XMS_ITS | Patient Health Record ---
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 Role Phone Issac Douglas Primary Care Provider Unav ailable Florencia Mancilla Unavailable [phone] Allergies No Known Allergies Reason For Referral Diagnosis 1 Pain in unspecified foot (M79.673) Referring Provider First Name Issac Referring Provider Last Name Rosa [facility] [place] Referred Provider Florencia Mancilla Referred Address [address] ,[facility] [place],[address], Referred Provider Specialty Podiatry Referral Priority Routine Medications Medication SIG (Take, Route, Frequency, Duration) Notes Start Date End Date Status Cosentyx 150 MG/ML 1 mL Subcutaneous Active Sildenafil Citrate 100 MG 1 tablet as ne eded Orally Once a day Active Atorvastatin Calcium 20 MG 1 tablet Orally Once a day Active Naproxen 500 MG 1 tablet Orally WITH FOOD Twice a day for 30 days 11/29/2024 Active Night Splint AFO - L1930 as directed 02/03/2025 Active Custom Orthotics as directed 02/03/2025 Active Social History Tobacco Use: Social History [...] Problem Status W/U Status Risk Notes Problem 87975585 Plantar fascial fibromatosis (M72.2) Active confirmed Vital Signs Blood pressure diastolic 80 mm Hg 03/04/2025 Height 6ft in 03/04/2025 Blood pressure systolic 120 mm Hg 03/04/2025 Weight 265 lbs 03/04/2025 BMI 35.94 kg/m2 03/04/2025 Encounters Encounter Location Date Provider Diagnosis [address] [address] 11/29/2024 Florencia Perica Pain in left foot M79.672 ; Posterior tibial tendinitis of left lower extremity M76.822 ; Flat foot [pes planus] (acquired), left foot M21.42 and Plantar fascial fibromatosis M72.[address] [address] 02/03/2025 Florencia Perica Pain in left foot M79.672 ; Posterior tibial tendinitis of left lower extremity M76.822 ; Flat foot [pes planus] (acquired), left foot M21.42 and Plantar fascial fibromatosis M72.[address] [address] 03/04/2025 Florencia Perica Pain in left foot M79.672 ; Posterior tibial tendinitis of left lower extremity M76.822 ; Flat foot [pes planus] (acquired), left foot M21.42 and Plantar fascial fibromatosis M72.[address] [address] 08/13/2024 Florencia Perica [facility] [address] 11/29/2024 Florencia Perica [facility] [address] 12[facility]24/20[facility] [address] [place] [address] 01/28/[address] [address] 02/03/2025 Florencia Perica [facility] [address] [address] 02/03/2025 Florencia Mancilla [facility] [place] [address] [place] [address] 02/19/2025 Florencia Mancilla Assessments Encounter Date Diagnosis (ICD Code) Assessment Notes Treatment Notes Treatment Clinical Notes Section Notes 11/29/2024 Pain in left foot (ICD-10 - M79.672) 11/29/2024 Posterior tibial tendinitis of left lower extremity (ICD-10 - M76.822) 02/03/2025 Pain in left foot (ICD-10 - M79.672) 02/03/2025 Posterior tibial tendinitis of left lower extremity (ICD-10 - M76.822) 03/04/2025 Pain in left foot (ICD-10 - M79.672) 03/04/2025 Posterior tibial tendinitis of left lower extremity (ICD-10 - M76.822) 03/04/2025 Flat foot [pes planus] (acquired), left foot (ICD-10 - M21.42) 11/29/2024 Flat foot [pes planus] (acquired), left foot (ICD-10 - M21.42) 02/03/2025 Flat foot [pes planus] (acquired), left foot (ICD-10 - M21.42) 03/04/2025 Plantar fascial fibromatosis (ICD-10 - M72.2) 02/03/2025 Plantar fascial fibromatosis (ICD-10 - M72.2) 11/29/2024 Plantar fascial fibromatosis (ICD-10 - M72.2) Plan Of Treatment Pending Test Test Name Order Date X ray : Foot, left 3V 02/03/2025 Insurance Providers Payer Name Payer Address Payer Phone Subscriber Number Group Number Insured Name Patient Relationship to Insured Coverage Start Date Coverage End Date [facility] [address] [place] [phone] [id number] Rafy Mckeon Self - patient is the insured 1 Medical (General) History Medical History History ICD Code Joint implants/screws Surgical History Surgery Date(Month/Year) Left PT tendonitis surgery 2017 colonoscopy
--- OUTSIDE RECORDS SUMMARY | 2025-03-18 15:56 | XMS_ITS ---
Author Organization [facility] Address [address] [facility] [place] [address] Care Team Providers Care Certification Officer Name Role Phone Issac Douglas Primary Care Provider Unav ailable Florencia Mancilla Unavailable [phone] REASON FOR VISIT night splint Encounters Encounter Location Date Provider Diagnosis [address] [address] 02/03/2025 Florencia Mancilla Plan Of Treatment No Information Progress Notes * Rafy COOK BDOB:[birth year] (49 yo M)Acc No.[id number]:02/03/2025 Patient:?Rafy COOK :1975???Age:49 Y???Sex:Male Address[address] [place] [address] * true * Date:? Generated for Printi ng/Fayasmineg/eTransmitting on:?03/18/2025 03:55 PM EDT
--- OUTSIDE RECORDS SUMMARY | 2025-03-18 15:56 | XMS_ITS ---
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 No Tobacco Control (Standard) Question Answer Notes Tobacco use: Nonsmoker Additional Findings: Tobacco non-user Current no nsmoker Vital Signs Height 6ft in 03/04/2025 Weight 265 lbs 03/04/2025 BMI 35.94 kg/m2 03/04/2025 Blood pressure systolic 120 mm Hg 03/04/20 25 Blood pressure diastolic 80 mm Hg 025 Encounters Encounter Location Date Provider Diagnosis [facility] [address] [place] [address] 03/04/2025 Florencia Perica Pain in left foot M79.672 ; Posterior tibial tendinitis of left lower extremity M76.822 ; Flat foot [pes planus] (acquired), left foot M21.42 and Plantar fascial fibromatosis M72.2 Assessments Encounter Date Diagnosis (ICD Code) Assessment Notes Treatment Notes Treatment Clinical Notes Section Notes 03/04/2025 Pain in left foot (ICD-10 - M79.672) 03/04/2025 Posterior tibial tendinitis of left lower extremity (ICD-10 - M76.822) 03/04/2025 Flat foot [pes planus] (acquired), left foot (ICD-10 - M21.42) 03/04/2025 Plantar fascial fibromatosis (ICD-10 - M72.2) Plan Of Treatment Next Appt Details Follow Up: prn, Reason: Progress Notes * Rafy COOK BDOB:[birth year] (49 yo M)Acc No.[id number]:03/04/2025 Progress Note Patient:?Rafy COOK Provider:?Florencia Mancilla DPM :1975???Age:49 Y???Sex:Male Ian e:03/04/2025 [facility] Pcp:JAMES Hanson Subjective: * Chief Complaints: * ???Foot pain * HPI: ???Foot Pain:?Nature:?aching, pulling, tenderness, throbbing, weakness.?Location:?LEFT, Arch(es), Rearfoot.?Duration:?, several months > 8 months.?Onset:?gradual, denies trauma.?Course:?improved, at 75%.?Aggravated:?any pressure, standing, walking, job/occupation.?Treatments:?rest/alter normal daily activity, ice, pt states he had previous PT tendon surgery about 10 years ago, medication ( Naproxen), stretching, nightsplint.? * ROS:?General/Constitutional:?Nausea?denies.?Vomiting?denies.?Hunger Thirst?denies.?Loss appetite?denies.?Chills?denies.?Fatigue?denies.?Fever?denies.?Night Sweats?denies.?Unexplained weight loss?denies.?Unexplained [...] (Standard)?Tobacco use:?Nonsmoker ?Additional Findings: Tobacco non-user?Current nonsmoker ???Miscellaneous:?Caffeine: yes, frequency: one cup a week. ?Children: no. ?Exercise: no. ?Marital status: . 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 * Medications:?TakingCosentyx 150 MG/ML Solution Prefilled Syringe 1 mL Subcutaneous Sildenafil Citrate 100 MG Tablet 1 tablet as needed Orally Once a day Atorvastatin Calcium 20 MG Tablet 1 tablet Orally Once a day Naproxen 500 MG Tablet 1 tablet Orally WITH FOOD Twice a day Night Splint AFO - L1930 as directed Custom Orthotics as directed Medication List reviewed and reconciled with the patientTaking Cosentyx 150 MG/ML Solution Prefilled Syringe 1 mL Subcutaneous Taking Sildenafil Citrate 100 MG Tablet 1 tablet as needed Orally Once a day Taking Atorvastatin Calcium 20 MG Tablet 1 tablet Orally Once a day Taking Naproxen 500 MG Tablet 1 tablet Orally WITH FOOD Twice a day Taking Night Splint AFO - L1930 as directed Taking Custom Orthotics as directed Medication List reviewed and reconciled with the [...] of Navicular tuberosity, B/L, Pes Planus structure, Semi-flexible.?TENDONITIS:?LESS? Pain on palpation, inflammation, and fusiform swelling to,Posterior Tibial Tendon, sheath ,insertion,LEFT? no,Pain with Range of Motion,Decreased Rearfoot inversion with heel rise, LEFT.?FOOTWEAR EVALUATION:?good condition.?Neurological: ?SENSORY:?Neurological exam reveals intact sensorium, pain sensation normal, vibration sensation intact, pinprick sensation is normal in the lower extremities, Pt denies, anesthesia, burning, paresthesia, tingling, B/L.?General Examination: ?GENERAL APPEARANCE:?Reveals a pleasant, alert, well-nourished, [...] interspaces are clear.?Heel Pain: ?INSPECTION REVEALS:?LEFT foot, Approximately 75 percent LESS, Pain on Palpation to Plantar Fascia med. and central bands, intrinsic musc., infra-calcaneal bursa, and med calc tubercle, No pain: posterior/superior heel, achilles bursa/tendon, sinus tarsi, peroneals, or with lateral heel compression; no limited STJ ROM, calor, or ecchymosis.? Assessment: * Assessment: 1.?Pain in left foot - M79.6 70???2.?Posterior tibial tendinitis of left lower extremity - M76.822 (Primary)???Specify :Acute problem, Stable???3.?Flat foot [pes planus] (acquired), left foot - M21.42???4.?Plantar fascial fibromatosis - M72.2??? Plan: * Treatment: * Procedure Codes:? * Preventive Medicine:? ??Counseling:?Discussion:?-13: Office or other outpatient visit for the evaluation and management of an established patient, which required a medically appropriate history and/or examination and LOW level of DECISION MAKING for: 1 STABLE ACUTE UNCOMPLICATED PROBLEM, 2 OR MORE MINOR PROBLEMS, OR 1 STABLE CHRONIC PROBLEM, THAT POSE(S) A LOW RISK FOR MORBIDITY/MORTALITY. The visit on the day of the [...] them and how it relates to their problem.?Orthotic Dispensing:?The patient presents today for fitting and dispensing of orthotics. The inserts were checked against the prescription and found to be accurate. They were properly fitted to the patients feet and shoes in both weight-bearing and non-weight bearing attitudes. The patient was instructed to gradually increase the amount of time they are wearing the orthoses, starting with one hour the first day and thereon progressively increasing the amount of time used by one hours per day until they are comfortable to be worn all day and with all activities. They were asked to call the office if any signs of skin irritation were noted including redness, blistering or callous formation. The patient verbally indicated a full understanding of all the above information, Handout reviewed and dispensed, The patient signed confirmation form indicating receipt of DME device.?P.R.I.C.E.:?The patient was counseled on the use of [...] and demonstrated, Handouts were also given, nightsplint dispensed.? ??Screening/Special Tests:?Fall Risk?Screening:?No falls in the past year ?FALLS: Screening for Future Fall Risk?Have you had any falls with injury in the past year??No * Follow Up:?prn * Images: * Sign off status: Completed true * Provider:?Florencia Mancilla DPM Date:? Generated for Teresa jaramillo/Eduarda/eTtiarasmitting on:?03/18/2025 03:56 PM EDT History and Physical Notes * HPI (History of Present Illness) Category Sub-Category Detail Notes Category Not es Foot Pain Nature: aching, pulling, tenderness, throbbing, weakness Location: LEFT, Arch(es), Rear foot Duration: , several months > 8 months Onset: gradual, denies tranneka jack Course: improved, at 75% Aggravated: any pressure, standi ng, walking, job/occupation Treatments: rest/alter normal da brooke activity, ice, pt states he had previous PT tendon surgery about 10 years ago, medication ( Naproxen), stretching, nightsplint Examination Category Sub-Category Detail Notes Category Not es Heel Pain INSPECTION REVEALS: LEFT foot, A pproximately 75 percent LESS, Pain on Palpation to Plantar Fascia med. [...] Pt denies, anesthesia, burning, paresthesia, tingling, B/L Dermatologic SKIN FINDINGS: Skin exam reveal s normal texture, elasticity, and turgor. There are no masses. The interspaces are clear Orthopedic GAIT ABNORMALITY: Pronated, abdu cted angle and base of gate, B/L FOOT MORPHOLOGY: Rigid medial/plantar protrusion of Midfoot at area of Navicular tuberosity, B/L, Pes Planus structure, Semi-flexible FOOTWEAR EVALUATION: good condition TENDONITIS: LESS Pain on palpati on, inflammation, and fusiform swelling to,Posterior Tibial Tendon, sheath ,insertion,LEFT no,Pain with Range of Motion,Decreased Rearfoot inversion with [...]
--- OUTSIDE RECORDS SUMMARY | 2025-03-18 15:56 | XMS_ITS | Continuity of Care Document ---
Author Name [facility] Organization [facility] Care Team Providers Care Card Puncher Name Role Phone [facility] Unavailable Unavailable Medications Combined list of outpatient medications from Department of Defense and Veterans Affairs facilities.Medications provided include 1) outpatient medications from the last 15 months, and 2) patient-reported medications. Medication Details Route Status Patient Instructions Prescription Expires Prescription Number Last Dispense Date Ordering Provider Order Date Order Qty Source ATORVASTATI N CALCIUM (atorvastat in calcium), 20 MG, TABLET, ORAL, Catalyze PHARMA I, 1000 ea. BOTTLE Active [id number] 2023 90 Pharmac y Data Transac tion Service Facilit y CLOBETASOL PROPIONATE (clobetasol propionate) , 0.05 %, OINT. (G), TOPICAL, ENCUBE ETHICALS, 60 g TUBE Active [id number] 4 2023 120 Pharmac y Data Transac tion Service Facilit y COSENTYX UNOREADY PEN (secukinuma b), 300 MG/2ML, PEN INJCTR, SUBCUT, NOVARTIS, 2 ml SYRINGE Cancele d [id number] : 2023 0 Pharmac y Data Transac tion Service Facilit y COSENTYX UNOREADY PEN (secukinuma b), 300 MG/2ML, PEN INJCTR, SUBCUT, NOVARTIS, 2 ml SYRINGE Cancele d [id number] : 2023 0 Pharmac y Data Transac tion Service Facilit y COSENTYX UNOREADY PEN (secukinuma b), 300 MG/2ML, PEN INJCTR, SUBCUT, NOVARTIS, 2 ml SYRINGE Active [id number] 4 2023 8 Pharmac y Data Transac tion Service Facilit y COSENTYX UNOREADY PEN (secukinuma b), 300 MG/2ML, PEN INJCTR, SUBCUT, NOVARTIS, 2 ml SYRINGE Active [id number] 4 2023 2 Pharmac y Data Transac tion Service Facilit y DESONIDE (DESONIDE), 0.05%, OINT.(GM), TOPICAL, TARO PHARM [place], 60 g JAR Active [id number] 4 2023 60 Pharmac y Data Transac tion Service Facilit y DESONIDE (DESONIDE), 0.05%, OINT.(GM), TOPICAL, TARO PHARM [place], 60 g JAR Active [id number] 4 2023 60 Pharmac y Data Transac tion Service Facilit y SILDENAFIL CITRATE (sildenafil citrate), 100 MG, TABLET, ORAL, AMNEAL PHARMACE, 30 ea. BOTTLE Active [id number] 4 2023 4 Pharmac y Data Transac tion Service Facilit y Immunizations Combined list of available immunizations from the Department of Defense and Veterans Affairs facilities. Immunization Series Date Given Administered By Site Reaction Lot Number CVX Code Drug Firer Low Pressure Status Comments Source tetanus, diphtheria, acellular pertu is 2021 [id number] sanofi pasteur complet ed tetanus, diphtheri a, acellular pertussis 09/27/22 Given Ambulat ory Pharmac y Influenza, injectable, MDCK, preservative free, quadrivalent 2020 JAYSON, () Not Given Influenza , injectabl e, MDCK, preservat mika free, quadrival ent DoD COVID Vaccine Moderna 2020 [id number] complet ed COVID Vaccine Moderna 08/24/21 Given Ambulat ory Pharmac y COVID Vaccine Moderna 2020 [id number] complet ed COVID Vaccine Moderna 07/27/21 Given Ambulat ory Pharmac y influenza, injectable, quadrivalent, preservative free 2019 JOHNATHAN, () Not Given influenza , injectabl e, quadrival ent, preservat mika free DoD influenza, injectable, quadrivalent, preservative free 2018 JOHNATHAN, () Not Given influenza , injectabl e, quadrival ent, preservat mika free DoD influenza virus vaccine, unspecified 2017 TRANSCR IBED 88 complet ed influenza virus vaccine, unspecifi ed 08/30/18 Given Ambulat ory Pharmac y influenza, seasonal, injectable-pf 2016 [id number] 140 Seqirus complet ed influenza , seasonal, injectabl e-pf 10/08/17 Given Ambulat ory Pharmac y Influenza, injectable, MDCK, preservative free, quadrivalent 2016 BOGCHAY, () Not Given Influenza , injectabl e, MDCK, preservat mika free, quadrival ent DoD influenza, injectable, quadrivalent- pf 2015 150 [employer] Mobile Support[employer] ne complet ed influenza , injectabl e, quadrival ent-pf 09/13/16 Given Ambulat ory Pharmac y influenza, injectable, quadrivalent- pf 2014 150 sanofi pasteur complet ed influenza , injectabl e, quadrival ent-pf 08/25/15 Given Ambulat ory Pharmac y influenza, seasonal, injectable 2013 [id number] 141 [facility] Behring complet ed influenza , seasonal, injectabl e 08/05/14 Given Ambulat ory Pharmac y influenza, seasonal, injectable 2012 141 complet ed influenza , seasonal, injectabl e 08/03/13 Given Ambulat ory Pharmac y tetanus, diphtheria, acellular pertu is 2011 [id number] 115 sanofi pasteur complet ed tetanus, diphtheri a, acellular pertussis 08/19/12 Given Ambulat ory Pharmac y influenza, seasonal, injectable-pf 2011 [id number] 140 L Behring complet ed influenza , seasonal, injectabl [...] Pharmac y influenza virus vaccine, live 2009 [id number] 111 Zyrra [facility] comple t ed influenza virus vaccine, live 09/11/10 Given Ambulat ory Pharmac y Novel influenza-H1N 1-09, injectable 2009 [id number] 127 Novartis Pharmaceutica ls complet ed Novel influenza -P6W7-22, injectabl e 12/04/09 Given Ambulat ory Pharmac y influenza virus vaccine, live 2008 [id number] 111 Zyrra Inc comple t ed influenza virus vaccine, live 08/11/09 Given Ambulat ory Pharmac y typhoid Vi capsular polysaccharid e vac 2007 [id number] 101 sanofi pasteur complet ed typhoid Vi capsular polysacch aride vac 09/09/08 Given Ambulat ory Pharmac y influenza virus vaccine,split 2007 [id number] 15 GlaxoSmithKli ne complet ed influenza virus vaccine,s plit 09/09/08 Given Ambulat ory Pharmac y influenza virus vaccine,split 2006 [id number] 15 GlaxoSmithKli ne complet ed influenza virus vaccine,s plit 09/20/07 Given Ambulat ory Pharmac y typhoid vaccine, inactivated 2005 [id number] 101 sanofi pasteur complet ed typhoid vaccine, inactivat ed 10/24/06 Given Ambulat ory Pharmac y influenza virus vaccine,split 2005 [id number] 15 Unknown complet ed influenza virus vaccine,s plit 10/24/06 Given Ambulat ory Pharmac y influenza virus vaccine,split 2004 [id number] 15 sanofi pasteur complet ed influenza virus [...] ory Pharmac y poliovirus vaccine, inactivated 2004 [id number] 10 sanofi pasteur complet ed polioviru s vaccine, inactivat ed 12/24/04 Given Ambulat ory Pharmac y influenza virus vaccine, live 2004 [id number] 111 Zyrra Inc comple t ed influenza virus vaccine, live 12/11/04 Given Ambulat ory Pharmac y typhoid vaccine, inactivated 2003 [id number] 101 sanofi pasteur complet ed typhoid vaccine, inactivat ed 08/08/04 Given Ambulat ory Pharmac y hepatitis A adult vaccine 2003 [id number] 52 Merck & Company Inc complet ed hepatitis A adult vaccine 08/08/04 Given Ambulat ory Pharmac y hepatitis B adult vaccine 2003 [id number] 43 GlaxoSmithKli ne complet ed hepatitis B adult vaccine 08/08/04 Given Ambulat ory Pharmac y typhoid vaccine, inactivated 2003 [id number] 101 sanofi pasteur complet ed typhoid vaccine, inactivat ed 08/07/04 Given Ambulat ory Pharmac y hepatitis B adult vaccine 2003 [id number] 43 GlaxoSmithKli ne complet ed hepatitis B adult vaccine 02/07/04 Given Ambulat ory Pharmac y tetanus-dipht h toxoids (Td) adult/adol 2003 [id number] 09 sanofi pasteur complet ed tetanus-d iphth toxoids (Td) adult/ado l 02/07/04 Given Ambulat ory Pharmac y hepatitis A adult vaccine 2003 [id number] 52 Merck & Company Inc complet ed hepatitis A adult vaccine 02/07/04 Given Ambulat ory Pharmac y tuberculin purified protein derivative 2003 [id number] 96 sanofi pasteur complet ed tuberculi n purified protein derivativ e 02/07/04 Given Ambulat ory Pharmac y tuberculin purified protein derivative 2002 [id number] 96 sanofi pasteur complet ed tuberculi n purified protein derivativ e 09/07/03 Given Ambulat ory Pharmac y influenza virus vaccine, whole virus 2002 [id number] 16 Novartis Pharmaceutica ls complet ed influenza virus vaccine, whole virus 09/07/03 Given Ambulat ory Pharmac y influenza virus vaccine, whole virus 2002 [id number] 16 Novartis Pharmaceutica ls complet ed influenza [...] Prevention' s HIV diagnostic algorithm. Refer to [facility] Lab Guide for additional information : [email or web address]/ [email or web address] x Testing performed by [employer] [facility]ise [facility]. [facility] EP[facility]AB Miscellan eous Sendouts Repository Sample Received (11/21/24 1:57 PM) 11/21 N [facility] Encounters Combined list of: 1) Encounters from Department of Veterans [facility] facilities going backup to the last 18 months, not all [place] inpatient encounters are included; 2) Encounters from the Department of [facility] facilities going backup to 280 months. Location Location Details Encounter Type Encounter Number Reason For Visit Attending Provider ADM Date DC Date Status Disposition Source [id number] AMDS Outpatient [id number] HNERY KAROL 12/06 Discharge Disposition: Home or Self Care [id number] [id number] AMDS [id number] AMDS Care Not Rendered [id number] 12/11 Discharge Disposition: Home or Self Care 8344R-[id number] AMDS Procedures Combined list of: 1) Procedures from Department of Veterans Affairs facilities going back up to thelast 18 months, not all [place] non-surgical procedures are included; 2) All procedures from the Department of Defense facilities. Procedure Procedure Type Code Date Perfomer Comments Clementecat e No data available for this section Ambulatory P harmacy Social History Combined list of available smoking, tobacco, and other social history from Department of Defense and Veterans Affairs facilities. Social History Type Response Date Comment Sourc e Sex Representation Male (finding) 11/17/2022 Un known Organization Sexual Orientation Ambula tory Pharmacy Gender identity Ambulator y Pharmacy This section is an empty social history section. DoD Assessment and Plan Combined list of future care activities from Department of Defense and Veterans Affairs facilities (e.g., assessment and plan notes, appointments, [...] Heart:?Normal Comments: ANNUAL PERIODIC HEALTH ASSESSMENT I. BEHAVIORAL INTERVENTION SPECIALIST INFORMATION AND DEMOGRAPHICS (SMI) 1. Last Name: JOEY 2. First Name: KORTNEY 3. Middle Name: LEXIE 4. Assessment Date: 5. : 6. Age: 49 7. Gender: M 8. DoD ID Number: [id number] 9. Service Branch: [employer] 10. 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 Unit Name: 43Nate HARRIS 14. Duty Station/Location: [place] 15. UIC: [id number] 16. Is this your first Periodic Health Assessment (PHA)?: N 17. Are you enrolled in a secure messaging system with your health care provider?: 18. Current contact information: Preferred Method: Email 1 DSN: Day Time Phone: [phone] Night Time Phone: [phone] Email 1: [email or web address] Email 2: [email or web address] Address: [address] [place] [address]: [facility]: [place] Zip Code: [phone] 19. Point of contact who can always reach you: Name: Yajaira Mckeon Phone 1: [phone] Phone 2: [email or web address] EMAIL: Address: [address] [place] [address]: [facility]: [place] Zip Code: [address] II. DEPLOYMENT INFORMATION (DEP) 1. [ 0 [...] easily startled? 6. d. [ No ] [place] numb or detached from others, activities, or your surroundings? 6. e. [ Not answered ] [place] guilt or unable to stop blaming yourself [...] like to schedule a visit with a chain saw operator, mental health care provider, or a community [...] 8. [ None ] What prescriptions or gebl-hzw-nbkzicx medications are you CURRENTLY taking for health problems on a ROUTINE BASIS? 9. Which of the following products have you taken since your last PHA: Multi-Vitamins: Once a day [place]-3 Supplements: Once a day Vitamin D: Less [...] a cholesterol check by a health care management associate within the PAST 5 YEARS? 13.a. In [...] discuss any health concerns? XI. SEPARATION AND PRISON 1. [ Yes ] Are you planning to separate or retire within the next year from Active Duty or [place] Duty (activated for greater than 30 continuous days) OR do you intend to file a claim for disability compensation with the [employer]? PART B. RECORD REVIEW AND RECOMMENDATIONS I. RECORD REVIEWER INFORMATION 1. Last Name: ADAMS 2. First Name: CYNDI 3. Middle Name: 4. Service Branch: [employer] 5. 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 EMAIL: [email or web address] 8. Facility: [facility] 9. Unit: [facility] 10. Address: [address] [place] [address] 11. State: [place] 12. Zip Code: [address] 13. 14. Date Record Review: II. MEDICAL SCREENING 1. [ ] Date of merchandise flow team member's most recent PHA 2. [ 6 feet 0 inches Date: ] merchandise flow team member's most recently documented height 3. [ 264 pounds Date: ] merchandise flow team member's most recently documented weight 4. [ 131/85 Date: ] merchandise flow team member's most recently documented blood pressure reading 5. [ No ] Does the merchandise flow team member have a history of abnormal blood pressure since their last PHA? 6. [ Yes ] Does the merchandise flow team member have a laboratory test of sickle cell trait documented in their permanent medical record? 7. [ No Cholesterol Test Documented ] What is the date of the merchandise flow team member's most recently documented cholesterol test? 8. [ No Colon Cancer Screening Documented ] What is the date of the merchandise flow team member's most recently documented colon cancer screening? 9. [ Atorvastatin 20mg Cosentyx Pen 300mg/2Ml sildenafil citrate (DISCONTINUE) DESONIDE (DISCONTINUE) ] List of merchandise flow team member's active medications listed in their permanent medical record 10. [ No ] Is there a discrepancy between the active medication record review and the merchandise flow team member's self-reported list of medications? 11. [ F/u psoriasis ] List documented significant care the merchandise flow team member has received since their last PHA from a provider OUTSIDE the Health System 12. [ No ] Is there a discrepancy between the merchandise flow team member's list of OUTSIDE care (from OT5), and the OUTSIDE care found in the record? 13. [ No Inside Care Documented ] List documented significant care the merchandise flow team member has received since their last PHA from a provider INSIDE the Health System 15. [ Not Answered ] Confirm that vaccine exemptions are listed in the medical record for each vaccine listed III. OCCUPATION-SPECIFIC EXAMINATIONS 2. [ ] When was the merchandise flow team member's most recently documented evaluation? IV. FAMILY HISTORY AND LIFESTYLE 1. [ Yes ] Does the [id number] reflect the merchandise flow team member's reported family history? VII. INDIVIDUAL MEDICAL READINESS 1. [ Yes ] Does the merchandise flow team member have an Assignment Limitation Code C? 3. [ Classification: 1 ] Most recently documented dental exam 4. [ Yes ] Is the merchandise flow team member current on all required immunizations in the immunization tracking system? 5. [ No, merchandise flow team member needs: gas mask inserts ] Is the merchandise flow team member current with Service-specific requirements for glasses and gas mask inserts? 6. Does the merchandise flow team member have the following laboratory tests [...] need to be forwarded to the Health Metal Products Fabricator Assembler completing PART C: Under tx for psoriasis. JLV reviewed. No significant findings. Date Record Review Completed: PART C. HEALTH CARE PROVIDER I. MENTAL HEALTH ASSESSMENT (MHA) PROVIDER INFORMATION 1. Last Name: AKOSUA 2. First Name: HENRY 3. Middle Name: 4. Service Branch: [employer] 5. 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 EMAIL: [email or web address] 8. Facility: [facility] [employer] [facility] 9. Unit: [facility] [employer] [facility] 10. Address: [address] [place] [address] [place] 11. State: [place] 12. Zip Code: [address] 13. Phone: [phone] 14. Date HCP Review initiated: 1. Member [...] ASSESSMENT (PHA) PROVIDER INFORMATION 1. Last Name: AKOSUA 2. First Name: HENRY 3. Middle Name: 4. Service Branch: [employer] 5. 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 Title: Physician (MD, DO) 7. EMAIL: [email or web address] 8. Facility: 9 [facility] 9. Unit: 9 [facility] 10. Address: [address] [place] 11. State: [place] 12. Zip Code: [address] 13. Phone: [phone] 14. Date HCP Review initiated: IV. PERIODIC HEALTH ASSESSMENT PROVIDER RECOMMENDATIONS and REFERRALS 1. Provider concerns with this assessment: No issues or concerns identified V. SUMMARY AND COMMENTS 1. Additional information summarizing findings during the merchandise flow team member assessment: 2. Provider Comments: Doing [...] your review of all documentation, is the merchandise flow team member medically deployable without limitations? Reference Misty 6490.07 Yes (merchandise flow team member DOES NOT currently have a medical condition that limits deployability) Date PHA Completed: END OF [id number] REPORT Impression:Meets?medical standards per DAFMAN 48-123/MSD. Disposition:?No AF469 changes based on this encounter.Member is mobility restricted/C-coded.C2 Extracted from:Title: AUof PHA predoc vitals Author: LOREN TRINH Date: 12/28/23 ?Vitals: Blood Pressure:???131/85 Heart Rate: 65 Height: 72 Weight:265 BMI: Medications: None Chronic Problems: ?Psoriasis 507: _ Comments: Addendum by KORTNEY RODRIGUES [...] C -2 ANNUAL PERIODIC HEALTH ASSESSMENT I. BEHAVIORAL INTERVENTION SPECIALIST INFORMATION AND DEMOGRAPHICS (SMI) 1. Last Name: JOEY 2. First Name: KORTNEY 3. Middle Name: LEXIE 4. Assessment Date: 5. : 6. Age: 48 7. Gender: M 8. DoD ID Number: [id number] 9. Service Branch: [employer] 10. 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 Unit Name: [facility] [employer] 14. Duty Station/Location: [place] 15. UIC: [id number] 16. Is this your first Periodic Health Assessment (PHA)?: N 17. Are you enrolled in a secure messaging system with your health care provider?: U 18. Current contact information: Preferred Method: Day Time Phone DSN: Day Time Phone: [phone] Night Time Phone: [phone] Email 1: [email or web address] Email 2: Address: [address] [place] [address]: [place] Zip Code: [id number] 19. Point of contact who can always reach you: Name: Yajaira Mckeon Phone 1: [phone] Phone 2: EMAIL: Address: [address] [place] [address]: [place] Zip Code: [address] II. DEPLOYMENT INFORMATION (DEP) 1. [ 0 [...] easily startled? 6. d. [ No ] [place] numb or detached from others, activities, or your surroundings? 6. e. [ Not answered ] [place] guilt or unable to stop blaming yourself [...] like to schedule a visit with a chain saw operator, mental health care provider, or a community [...] 8. [ None ] What prescriptions or tgbq-fix-ivhhhty medications are you CURRENTLY taking for health problems on a ROUTINE BASIS? 9. Which of the following products have you taken since your last PHA: Multi-Vitamins: Once a day Individual Vitamins or Minerals: Once a day [place]-3 Supplements: Once a day Vitamin D: Less [...] a cholesterol check by a health care management associate within the PAST 5 YEARS? 13.a. In [...] discuss any health concerns? XI. SEPARATION AND PRISON 1. [ Yes ] Are you planning to separate or retire within the next year from Active Duty or [place] Duty (activated for greater than 30 continuous days) OR do you intend to file a claim for disability compensation with the [employer]? PART B. RECORD REVIEW AND RECOMMENDATIONS I. RECORD REVIEWER INFORMATION 1. Last Name: ANA LILIA 2. First Name: DANIELA 3. Middle Name: Lety 4. Service Branch: [employer] 5. 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 EMAIL: [email or web address] 8. Facility: [facility] 9. Unit: [facility] 10. Address: [address] 11. State: [facility]. Zip Code: [address] 13. 14. Date Record Review: II. MEDICAL SCREENING 1. [ ] Date of merchandise flow team member's most recent PHA 2. [ 5 feet 11 inches Date: ] merchandise flow team member's most recently documented height 3. [ 256 pounds Date: ] merchandise flow team member's most recently documented weight 4. [ 121/79 Date: ] merchandise flow team member's most recently documented blood pressure reading 5. [ No ] Does the merchandise flow team member have a history of abnormal blood pressure since their last PHA? 6. [ Yes ] Does the merchandise flow team member have a laboratory test of sickle cell trait documented in their permanent medical record? 7. [ No Cholesterol Test Documented ] What is the date of the merchandise flow team member's most recently documented cholesterol test? 8. [ No Colon Cancer Screening Documented ] What is the date of the merchandise flow team member's most recently documented colon cancer screening? 9. [ sildenafil citrate DESONIDE ] List of merchandise flow team member's active medications listed in their permanent medical record 10. [ Yes: sildenafil citrate DESONIDE ] Is there a discrepancy between the active medication record review and the merchandise flow team member's self-reported list of medications? 11. [ seen for left corneal abrasion 03/2023 seen for strain of L Achilles tendon 12/2022 Seen for thyrotoxicosis and nontoxic multinodular goiter 07/2023 ] List documented significant care the merchandise flow team member has received since their last PHA from a provider OUTSIDE the Health System 12. [ Yes: seen for left corneal abrasion 03/2023 seen for strain of L Achilles tendon 12/2022 Seen for thyrotoxicosis and nontoxic multinodular goiter 07/2023 ] Is there a discrepancy between the merchandise flow team member's list of OUTSIDE care (from OTH5), and the OUTSIDE care found in the record? 13. [ No Inside Care Documented ] List documented significant care the merchandise flow team member has received since their last PHA from a provider INSIDE the Health System 15. [ Not Answered ] Confirm that vaccine exemptions are listed in the medical record for each vaccine listed III. OCCUPATION-SPECIFIC EXAMINATIONS 2. [ ] When was the merchandise flow team member's most recently documented evaluation? IV. FAMILY HISTORY AND LIFESTYLE 1. [ Yes ] Does the [id number] reflect the merchandise flow team member's reported family history? VII. INDIVIDUAL MEDICAL READINESS 1. [ Yes ] Does the merchandise flow team member have an Assignment Limitation Code C? 3. [ Classification: 1 ] Most recently documented dental exam 4. [ No: Influenza, [place] ] Is the merchandise flow team member current on all required immunizations in the immunization tracking system? 6. Does the merchandise flow team member have the following laboratory tests [...] need to be forwarded to the Health Metal Products Fabricator Assembler completing PART C: C2 for psoriasis. being seen for Subclinical hyperthyroidism. No MH concerns. No alcohol concerns. No tobacco use. No medications. Supplements: multi vit, ind vit/minerals, omega 3, vit D. No other findings in JLV. Date Record Review Completed: PART C. HEALTH CARE PROVIDER I. MENTAL HEALTH ASSESSMENT (MHA) PROVIDER INFORMATION 1. Last Name: YOKASTA 2. First Name: JUNIOR 3. Middle Name: 4. Service Branch: [employer] 5. 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 EMAIL: [email or web address] 8. Facility: [address] [place] [address] 9. Unit: [address] [place] [address] 10. Address: [address] 11. State: [place] 12. Zip Code: [address] 13. 14. Date HCP Review initiated: 1. [...] JUNIOR 3. Middle Name: 4. Service Branch: [employer] 5. 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 EMAIL: [email or web address] 8. Facility: [address] [place] [address] 9. Unit: [address] [place] [address] 10. Address: [address] [place] [address] 11. State: [place] 12. Zip Code: [address] 13. 14. Date HCP Review initiated: IV. PERIODIC HEALTH ASSESSMENT PROVIDER RECOMMENDATIONS and REFERRALS 1. Provider concerns with this assessment: No issues or concerns identified V. SUMMARY AND COMMENTS 1. Additional information summarizing findings during the merchandise flow team member assessment: 2. Provider Comments: . INDIVIDUAL MEDICAL READINESS DISPOSITION DETERMINATION LUCILLE: Ready DEN: Ready IMM: Ready LAB: Ready ME: Ready IMR Status: Fully Medically Ready VII. SERVICE MEDICAL DEPLOYABILITY EVALUATION INDICATED Based on your review of all documentation, is the merchandise flow team member medically deployable without limitations? Reference [facility] 6490.07 Yes (merchandise flow team member DOES NOT currently have a medical condition that limits deployability) Date PHA Completed: END OF [id number] REPORT Impression:_?medical standards per ERIC 48-123/MSD. Disposition:?No AF469 changes based on this encounter.[employer]. 03/18/2025 [id number] [facility] Functional Status Combined list of recent functional and cognitive assessments recorded at [employer] of [employer] and [employer] (VA).VA Functional [place] Measurement (FIM) Scale: 1 = Total Assistance (Subject = 0% +), 2 = Maximal Assistance (Subject = 25% +), 3 = Moderate Assistance (Subject = 50% +), 4 = Minimal Assistance (Subject = 75% +), 5 = Supervision, 6 = Modified [place] (Device), 7 = Complete [place] (Timely, Safely). Assessment Date/Time Source Assessment Type Assessment Skill Assessment Score Assessment Details No data available for this section
[2025-03-18 16:17] LABS: MANUAL DIFF FLAG NO
[2025-03-18 16:28] LABS: Basophils Percent Auto 0.6 % (0-2); Eosinophils Absolute Auto 0.2 X10*3/uL (0.0-0.4); Eosinophils Percent Auto 4.4 % (0-4); Hematocrit 40.5 % (42.0-52.0); Hemoglobin 13.8 g/dl (14.0-18.0); Imm Gran Abs Auto 0.01 X10*3/uL (0.00-0.03); Imm Gran Pct Auto 0.2 % (0.0-0.4); Immature Retic Fraction 5.6 % (2.3-13.4); Lymphocytes Absolute Auto 1.8 X10*3/uL (1.2-4.9); Lymphocytes Percent Auto 38.1 % (20-40); Mean Corpuscular HGB Conc 34.1 g/dl (31.0-36.0); Mean Corpuscular Hemoglobin 29.9 pg (27.0-33.0); Mean Corpuscular Volume 87.7 fL (80.0-98.0); Mean Platelet Volume 9.7 fL (9.4-12.4); Monocytes Absolute Auto 0.8 X10*3/uL (0.1-1.2); Monocytes Percent Auto 17.2 % (2-11); Neutrophils Absolute Auto 1.9 x10*3/uL (2.0-8.3); Neutrophils Percent Auto 39.5 % (45-73); Platelet Count 229 X10*3/uL (160-400); Red Blood Count 4.62 X10*6/uL (4.60-5.80); Red Cell Distribution Width 13.2 % (11.0-16.0); Reticulocyte Percent 1.7 % (0.5-1.8); Reticulocytes Absolute 0.078 X10*6/uL (0.026-0.095); White Blood Count 4.8 X10*3/uL (4.8-10.8)
[2025-03-18 16:41] LABS: Iron 80 mcg/dL (45-160); Lactate Dehydrogenase 192 U/L (118-273); Percent Iron Saturation 27 % (15-50); Total Iron Binding Capacity 294 mcg/dL (228-428); Unsaturated Iron Binding 214 ug/dL
[2025-03-18 16:58] LABS: Ferritin 171 ng/mL (20-250); TSH reflex Free T4 0.73 uIU/mL (0.32-4.0)
[2025-03-18 17:09] LABS: Folate 13.2 ng/mL (> or = 4.0); Vitamin B12 1054 pg/mL (200-900)
[2025-03-19 13:39] LABS: Hematocrit 41.6 % (38.5-50.0); Hemoglobin 14.2 g/dL (13.2-17.1); MCH 30.5 pg (27.0-33.0); MCV 89.5 fL (80.0-100.0); RBC 4.65 Million/uL (4.20-5.80); RDW 13.5 % (11.0-15.0)
[2025-03-20 13:28] LABS: Anti Nuclear Antibody Pattern Nuclear, Speckled; Anti Nuclear Antibody Screen POSITIVE (NEGATIVE); Anti Nuclear Antibody Titer 1:40 titer
== END 2025-03-18 14:56 | disposition home or self-care (01) ==
LOC: HO.HMGCLDS 14:55
PROVIDERS: PCP Nurse Practitioner Family; Visit Provider Nurse Practitioner Family
DX: D64.9 Anemia, unspecified (principal)
CPT/HCPCS: 36415; 82607; 82728; 82746; 83020; 83540; 83615; 84443; 85014; 85018; 85025; 85041; 85045; 86038; 86039

== ENCOUNTER 2025-04-10 10:40 | Outpatient (REF) | payer OTHER, SELFPAY ==
--- OUTSIDE RECORDS SUMMARY | 2025-04-10 12:33 | XMS_ITS | Patient Health Record ---
[facility] Address [address] [place] [address] Care Team Providers Care Sweatband Maker Name Role Phone Issac Douglas Primary Care Provider Unav ailable Florencia Mancilla Unavailable [phone] Allergies No Known Allergies Reason For Referral Diagnosis 1 Pain in unspecified foot (M79.673) Referring Provider First Name Issac Referring Provider Last Name Rosa [facility] [place] Referred Provider Florencia Mancilla Referred Address [address] ,[facility] [place],[address], Referred Provider Specialty Podiatry Referral Priority Routine [...] Problem Status W/U Status Risk Notes Problem 69986006 Plantar fascial fibromatosis (M72.2) Active confirmed Vital Signs Blood pressure diastolic 80 mm Hg 03/04/2025 Height 6ft in 03/04/2025 Blood pressure systolic 120 mm Hg 03/04/2025 Weight 265 lbs 03/04/2025 BMI 35.94 kg/m2 03/04/2025 Encounters Encounter Location Date Provider Diagnosis [address] [address] 11/29/2024 Florencia Perica Pain in left foot M79.672 ; Posterior tibial tendinitis of left lower extremity M76.822 ; Flat foot [pes planus] (acquired), left foot M21.42 and Plantar fascial fibromatosis M72.[address] [address] 02/03/2025 Florencia Perica Pain in left foot M79.672 ; Posterior tibial tendinitis of left lower extremity M76.822 ; Flat foot [pes planus] (acquired), left foot M21.42 and Plantar fascial fibromatosis M72.[address] [address] 03/04/2025 Florencia Perica Pain in left foot M79.672 ; Posterior tibial tendinitis of left lower extremity M76.822 ; Flat foot [pes planus] (acquired), left foot M21.42 and Plantar fascial fibromatosis M72.[address] [address] 08/13/2024 Florencia Perica [facility] [address] 11/29/2024 Florencia Perica [facility] [address] 12/24/2024 [facility] [address] [place] [address] 01/28/[address] [address] 02/03/2025 Florencia Perica [facility] [address] [address] 02/03/2025 Florencia Mancilla [facility] [place] [address] [place] [address] 02/19/2025 Florencia Mancilla Assessments Encounter Date Diagnosis [...] Insured Coverage Start Date Coverage End Date [facility] [address] [place] [id number] [phone] [id number] Rafy Mckeon Self - patient is the insured 1 Medical (General) History Medical History History ICD Code Joint implants/screws Surgical History Surgery Date(Month/Year) Left PT tendonitis surgery 2017 colonoscopy
[2025-04-13 09:12] LABS: TS Negative Control Passed; TS Panel A 0; TS Panel B 0; TS Positive Control Passed; TSpotTB Negative (Negative)
== END 2025-04-10 10:41 | disposition home or self-care (01) ==
LOC: HO.HMGCLDS 10:40
PROVIDERS: PCP Nurse Practitioner Family; Visit Provider Physician Assistant Medical
DX: Z11.1 Encounter for screening for respiratory tuberculosis (principal); L40.0 Psoriasis vulgaris; Z79.899 Other long term (current) drug therapy
CPT/HCPCS: 36415; 86481